=== PATIENT | female | born 2000 | race Caucasian/White ===

== ENCOUNTER 2025-06-18 15:20 | Outpatient (CLI) | payer OTHER, SELFPAY ==
--- NOTE | 2025-06-18 15:23 | US_ITS ---
PROCEDURE: OB ANATOMY W/ TRANSVAGINAL 06/18/2025 REASON FOR EXAM: CERVICAL LENGTH/ANATOMY TECHNIQUE: Procedure Code: [id number] Modality: US Procedure: OB ANATOMY W/ TRANSVAGINAL COMPARISON: April 15, 2025. FINDINGS Number: 1 Position: Vertex Placental Position: Posterior and not low-lying. Placental Abnormalities: No evidence of previa. There is evidence of a 2.3 cm 1.9 cm 1 cm subchorionic bleed along the left side of the placenta. DIMENSIONS: Biparietal Diameter: 4.6 cm: 19 weeks and 6 days: 40 percentile/ Head Circumference: 17.9 cm: 20 weeks and 3 days: 53rd percentile/ Abdominal Circumference: 15.4 cm: 20 weeks and 4 days: 58 percentile/ Femur Length: 3.1 cm: 19 weeks and 5 days: 29 percentile/ ESTIMATED WEIGHT: 339 g plus/-50 g ESTIMATED WEIGHT PERCENTILE (24+ weeks): 48 ESTIMATED GESTATIONAL AGE: Baseline: 20 weeks and 1 day By Ultrasound: 20 weeks and 1 day ESTIMATED DATE OF DELIVERY: Baseline: November 04, 2025 By Ultrasound: November 04, 2025 BIOPHYSICAL ASSESSMENT: Amniotic Fluid Volume: 2.8 cm x 8.3 cm Amniotic Fluid Index: Within normal limits. (8-24 cm normal range) Cardiac Motion: 144 beats per minute (average) Trunk and Limb Motion: Present. MATERNAL ANATOMY: Adnexa: Neither maternal ovary is successfully identified. Cervical Length (if measured): 4.7 cm ANATOMY: Spine: Unremarkable Cranium: Unremarkable Cerebellum: Unremarkable Cisterna Magna: Unremarkable Cavum Septum Pellucidi: Unremarkable Lateral Ventricles: Unremarkable Choroid Plexus: Unremarkable Midline Falx: Unremarkable Nuchal Fold: Unremarkable Upper Lip: Unremarkable Heart: Unremarkable Stomach: Unremarkable Kidneys: Unremarkable Bladder: Unremarkable Umbilical Cord: Unremarkable Extremities: Unremarkable US/OB Anatomy w/ Transvaginal IMPRESSION: Single live intrauterine gestation with a mean gestational age of 20 weeks and 1 day. Small subchorionic bleed. Reading Location: [id number]
== END 2025-06-18 23:59 | disposition home or self-care (01) ==
LOC: US 15:21
PROVIDERS: PCP Internal Medicine; Referring Provider Obstetrics & Gynecology; Visit Provider Obstetrics & Gynecology
DX: Z34.90 Encounter for supervision of normal pregnancy, unspecified, unspecified trimester (principal)
CPT/HCPCS: 76805; 76817

== ENCOUNTER 2025-06-23 10:31 | Outpatient (CLI) | payer OTHER, SELFPAY ==
--- NOTE | 2025-06-23 10:33 | EKG12_ITS ---
Test Reason : TACHY W Blood Pressure : */* mmHG Vent. Rate : 76 BPM Atrial Rate : 76 BPM P-R Int : 124 ms QRS Dur : 78 ms QT Int : 364 ms P-R-T Axes : 41 62 36 degrees QTcB Int : 409 ms Normal sinus rhythm with sinus arrhythmia Normal ECG Confirmed by Yang Conti ([id number]), society editor TIFFANY FREDERICK ([id number]) on 06/23/2025 1:19:11 PM Referred By: Arabella Urban Confirmed By: Yang Conti
== END 2025-06-23 23:59 | disposition home or self-care (01) ==
PROVIDERS: PCP Internal Medicine; Referring Provider Obstetrics & Gynecology; Visit Provider Obstetrics & Gynecology
DX: R00.0 Tachycardia, unspecified (principal)
CPT/HCPCS: 93005

== ENCOUNTER → 2025-07-30 | Outpatient (CLI) | payer OTHER, SELFPAY ==
[2025-07-30 12:17] LABS: Hematocrit 34.0 % (37-47); Hemoglobin 11.6 g/dL (12.0-15.0); Immature Granulocytes Count 0.090 X10^3/uL (0.0-0.0); Mean Corp Hgb Conc 34.1 g/dL (32-36); Mean Corpuscular Volume 92.4 fL (81-99); Mean Platelet Vol. 9.9 fl (6.2-12.0); NRBC Flagged by Analyzer 0 % (0-5); Platelet Count 310 K/mm3 (150-450); RBC Distribution Width CV 12.7 % (11.6-14.6); RBC Distribution Width SD 43.1 fl (35.1-43.9); Red Blood Count 3.68 M/mm3 (4.2-5.4); White Blood Count 11.0 K/mm3 (4.4-11.0)
[2025-07-30 13:25] LABS: Glucose Challenge Gest 1H 50g 147 mg/dL (70-140); HIV Nonreactive (Nonreactive); Syphilis Antibodies Nonreactive (Nonreactive)
== END | disposition home or self-care (01) ==
PROVIDERS: PCP Internal Medicine; Visit Provider Obstetrics & Gynecology
DX: Z34.02 Encounter for supervision of normal first pregnancy, second trimester (principal)
CPT/HCPCS: 82950; 85025; 86703; 86780

== ENCOUNTER → 2025-08-06 | Outpatient (CLI) | payer OTHER, SELFPAY ==
[2025-08-06 07:27] LABS: Glucose GTT-Gestation. Fasting 102 mg/dL (<105)
[2025-08-06 10:28] LABS: Glucose GTT-Gestational 1 Hr 197 mg/dL (<190)
[2025-08-06 11:02] LABS: Glucose GTT-Gestational 2 Hr 168 mg/dL (<165)
[2025-08-06 11:54] LABS: Glucose GTT-Gestational 3 Hr 126 L (<145)
== END | disposition home or self-care (01) ==
LOC: LAB 06:47
PROVIDERS: PCP Internal Medicine; Referring Provider Nurse Practitioner Women's Health; Visit Provider Nurse Practitioner Women's Health
DX: Z13.1 Encounter for screening for diabetes mellitus (principal)
CPT/HCPCS: 36415; 82951; 82952

== ENCOUNTER 2025-09-03 10:00 | Outpatient (RCR) | payer OTHER, SELFPAY | END 2025-09-07 23:59 | LOC: NS 10:00 | PROVIDERS: PCP Internal Medicine; Visit Provider Nurse Practitioner Women's Health | DX: O24.419 Gestational diabetes mellitus in pregnancy, unspecified control (principal) | CPT/HCPCS: 97802; 97803 ==

== ENCOUNTER → 2025-09-09 | Outpatient (CLI) | payer OTHER, SELFPAY ==
--- NOTE | 2025-09-09 14:09 | US_ITS ---
PROCEDURE: OB LIMITED WITH BIOMETRICS 09/09/2025 REASON FOR EXAM: GROWTH TECHNIQUE: Procedure Code: [id number] Modality: US Procedure: OB LIMITED WITH BIOMETRICS COMPARISON: none FINDINGS Cephalic position with cardiac activity of 138 bpm. Maximum vertical pocket of 8.7 cm and SANA of 22.8 cm. Placenta is posterior position with grade 1. BPD of 8.2, OFD of the 10.4, HC of 29.8, AC of 28.9, and FL of 5.9 cm corresponding with average gestational age of 32 weeks and 3 day with STEFFANIE of 11/01/25. Biometric measurement are within normal limits. Estimated weight of 1950g (50 percentile). US/OB Limited With Biometrics IMPRESSION: Sonographic gestational age of 32 weeks and 3 days. STEFFANIE of 11/01/25. Biometric numbers as above. Reading Location: [id number]
== END | disposition home or self-care (01) ==
LOC: US 14:08
PROVIDERS: PCP Internal Medicine; Referring Provider Nurse Practitioner Women's Health; Visit Provider Nurse Practitioner Women's Health
DX: O24.419 Gestational diabetes mellitus in pregnancy, unspecified control (principal); Z3A.32 32 weeks gestation of pregnancy
CPT/HCPCS: 76816

== ENCOUNTER 2025-09-10 16:02 | Emergency (ER) | payer OTHER, SELFPAY ==
[2025-09-10 16:04] VITALS: BP 117/61; PULSE 89; RESP 18; TEMP 36.2; O2SAT 97; BMI 28.3
--- NOTE | 2025-09-10 16:14 | EKG12_ITS ---
Test Reason : PALPATIONS Blood Pressure : */* mmHG Vent. Rate : 84 BPM Atrial Rate : 84 BPM P-R Int : 130 ms QRS Dur : 80 ms QT Int : 336 ms P-R-T Axes : 33 57 42 degrees QTcB Int : 397 ms Normal sinus rhythm Nonspecific ST abnormality Abnormal ECG Confirmed by KATHARINA SINGLETON, JOSE ([id number]), staff editor TIFFANY FREDERICK ([id number]) on 09/12/2025 9:04:54 AM Referred By: Confirmed By: JOSE POSADAS MD
--- NOTE | 2025-09-10 16:15 | EDS_ITS ---
HPI History of Present Illness Chief Complaint: Palpitations Narrative Narrative: Patient is a 25-year-old female G1, P0 currently 32 weeks who was sent in by her COMPUTER PROCESSING SCHEDULER for shortness of breath, palpitations has been progressive worsening last 2 weeks. Patient denies any travel history denies any history of blood clots. States that she currently is on insulin for gestational diabetes otherwise she states that her is going well. Denies any sick contacts. [facility] Medical History History of hysterosalpingogram Seasonal allergies Ovarian cyst UTI (urinary tract infection) Urinary frequency Home Medications ?Medication ?Instructions ?Recorded ?Last Taken ?Type Omeprazole [Prilosec] 40 mg PO DAILY 01/12/15 Unkn own History Ranitidine [Zantac] 150 mg PO PRN PRN Heartburn 01/12/15 Unknown History minocycline 100 mg capsule 100 mg PO BID 01/12/15 Unkn own History PNV 153-FA 400 mcg-om3 35 mg-dha tab PO 03/25/25 Unkno wn History 25 mg-epa 5 mg-fish oil chew tablet famotidine 20 mg tablet (Pepcid) 20 mg PO BID #60 tabs 05/07/25 Unknown Rx blood sugar diagnostic (Blood #120 ea 08/06/25 Unknown Rx Glucose Test strips) blood-glucose meter #1 ea 08/06/25 Unknown Rx lancets 30 gauge (Droplet Lancets) #200 ea 08/06/25 Un known Rx metformin 500 mg tablet 500 mg PO QDAY #30 tabs 11/0 04/02 Unknown Rx insulin NPH isoph U-100 human 100 12 unit subcut QHS 1 11/09/24 Unknown History unit/mL (3 mL) subcutaneous pen (Humulin N NPH U-100 Insulin KwikPen) Allergy/AdvReac Type Severity Reaction Status Date / Time metformin Allergy Intermediate shaking Verified 09/10/25 16:04 Family History Grandfather Diabetes Maternal & Paternal Heart disease Paternal Grandmother Breast cancer, Onset Age: 60 Paternal Mother Hypertension Father Hypertension Diabetes Surgical History No pertinent past surgical history Social History adopted: No household members: spouse housing: house number of children: 0 current occupational status: employed 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 [employer] current occupational exposures/hazards: No pets and animals: Yes pets and animals: dog(s) 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 history of recent travel: Yes ([place]) out of state: Yes out of country: No sexually active: Yes Smoking Status: Never smoker Electronic Cigarette Use: not used second hand exposure: No alcohol intake: never substance use type: does not use well-balanced diet: daily or most days caffeine: No eating out: rarely or never during the past year weight has: remained stable what type of physical activity do you participate in: walking frequency: 3-4 times per week duration: 30-45 minutes/day etienne/[employer] seatbelt use: always do you feel safe at home: Yes additional social history: 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 [employer] Surgery ROS ROS ED ROS Narrative Constitutional: Denies any fevers, chills, headaches Eyes: Denies double vision Cardiovascular: Denies chest pain complains of palpitations as noted above Respiratory: Complains of shortness of breath as noted above denies coughing Abdomen: Denies abdominal pain nausea vomit diarrhea : Denies any urinary symptoms Neurological: Denies any numbness, weakness, tingling Musculoskeletal: Denies back pain Skin: Denies any rashes or lesions EXAM Physical Exam Narrative Exam Narrative: General: Patient was lying in bed rest comfortably did not appear to be acute distress Head: Atraumatic, normocephalic Eyes: PERRL bilaterally, EOMI bilaterally, no conjunctival injection noted Neck: Soft, supple, trachea midline Cardiovascular: Regular rate and rhythm Respiratory: Clear to auscultation bilateral Abdomen: Soft, gravid abdomen no tenderness to palpation Extremities: +5/5 strength noted in the bilateral lower extremity Neurological: Patient following commands that she was at [facility] years 2024 Skin: Warm, dry, intact no rashes or lesions noted Const Vital Signs: 09/10/25 16:04 09/10/25 16:28 09/10/25 16:29 Temperature 97.2 F L Temperature Source Temporal Pulse Rate 89 Respiratory Rate 18 Respiratory Effort Normal Non-Labored Blood Pressure 117/61 Blood Pressure Mean 79 Pulse Ox 97 98 Oxygen Delivery Method Room Air Room Air 09/10/25 18:16 Temperature Temperature Source Pulse Rate 88 Respiratory Rate 16 Respiratory Effort Blood Pressure 102/67 Blood Pressure Mean 78 Pulse Ox 97 Oxygen Delivery Method Room Air MDM MDM MDM Narrative Medical decision making narrative: Patient is a 25-year-old female who presents to the emergency department chief complaint of palpitations, shortness of breath has been going on for 2 weeks and progressively worsening. On the differential diagnosis includes but to hyperthyroidism, PVCs, PACs, electrolyte abnormality, cardiac arrhythmia. Once workup is obtained and reviewed she will be reevaluated. Patient's CBC reviewed showed no evidence leukocytosis white blood count 10.4, he was 1.4, plate count was noted to be 287. Patient sodium is 137, potassium normal 3.8, creatinine was 0.47. Patient's AST and ALT were normal at 19 and 16 respectively troponin was less than 6 proBNP less than 36. Patient TSH normal at 1.77 free T4 and T3 normal at 0.80 and 2.5. Patient's EKG was reviewed which showed sinus rhythm with a rate of 84 bpm with a NV interval 130. Patient ambulated here in the emergency department no hypoxia no tachycardia. Discussed the results with the patient and mother at bedside she would like to go home at this point in time. We will prescribe her a Holter monitor for her palpitations. She was encouraged to follow-up with her COMPUTER PROCESSING SCHEDULER and return with worsening symptoms or any concerns. She is agreeable this plan all question concerns answered she was discharged home in stable condition Lab Data Labs: Laboratory Results - last 24 hr 09/10/25 16:25 WBC 10.4 RBC 3.75 L Hgb 11.4 L Hct 34.6 L MCV 92.3 MCH 30.4 MCHC 32.9 RDW Std Deviation 44.6 H RDW Coeff of Abbie 13.3 Plt Count 287 MPV 9.6 Immature Gran % (Auto) 0.800 Neut % (Auto) 72.4 H Lymph % (Auto) 17.6 L [place] % (Auto) 8.2 Eos % (Auto) 0.6 Baso % (Auto) 0.4 Absolute Neuts (auto) 7.5 Absolute Lymphs (auto) 1.83 Nucleated RBC % 0 Sodium 137 Potassium 3.8 Chloride 103 Carbon Dioxide 21.4 Anion Gap 13 BUN 10 Creatinine 0.47 L Estim Creat Clear Calc 168.07 Est GFR (MDRD) Non-Af 135 BUN/Creatinine Ratio 20.6 H Glucose 98 Calcium 9.2 Total Bilirubin 0.21 Direct Bilirubin 0.09 AST 19 ALT 16 Alkaline Phosphatase 74 Troponin T High Sens < 6 NT pro BNP II < 36 Total Protein 6.5 Albumin 3.6 Globulin 2.9 TSH 1.770 Free T4 0.80 Free T3 pg/dL 2.5 Discharge Plan Triage Chief Complaint: Palpitations ED Provider: Peng Bergman Dx/Rx/DC Orders Clinical Impression: , Heart palpitations, Gestational diabetes mellitus Prescriptions: No Action PNV no.[id number] 400 mcg-35 mg- 25 mg-5 mg tablet,chewable PO famotidine [Pepcid] 20 mg tablet 20 mg PO BID Qty: 60 4RF metformin 500 mg tablet 500 mg PO QDAY Qty: 30 4RF Rx Instructions: take at bedtime Humulin N NPH Insulin KwikPen 100 unit/mL (3 mL) insulin pen 12 unit subcut QHS minocycline 100 MG capsule 100 mg PO BID Omeprazole [Prilosec] 40 MG capsule 40 mg PO DAILY Ranitidine [Zantac] 150 MG tablet 150 mg PO PRN PRN (Reason: Heartburn) (DME) blood-glucose meter Misc See Rx Instructions .ROUTE .MEDSUPPLY Qty: 1 0RF Rx Instructions: As directed. Test blood QID. (DME) Blood Glucose Test Strip See Rx Instructions .ROUTE .MEDSUPPLY Qty: 120 6RF Rx Instructions: Check blood sugars Fasting and 2 hours after breakfast, lunch, and dinner. (DME) lancets [Droplet Lancets] 30 gauge misc See Rx Instructions .ROUTE .MEDSUPPLY Qty: 200 6RF Rx Instructions: Check blood sugars fasting and 2 hours after breakfast, lunch, and supper. Primary Care Provider: Debora Lynch Referrals: Debora Lynch MD [Primary Care Provider, Internal Medicine] Activity Restrictions/Additional Instructions: Your blood work did not show any acute findings here today your EKG was normal. Wear Holter monitor as we discussed and follow-up with your COMPUTER PROCESSING SCHEDULER. Return with worsening symptoms or any concerns Print Language: Occitan Disposition Disposition: Home, Self Care
[2025-09-10 16:28] VITALS: O2SAT 98
[2025-09-10 17:01] LABS: Hematocrit 34.6 % (37-47); Hemoglobin 11.4 g/dL (12.0-15.0); Immature Granulocytes Count 0.080 X10^3/uL (0.0-0.0); Mean Corp Hgb Conc 32.9 g/dL (32-36); Mean Corpuscular Volume 92.3 fL (81-99); Mean Platelet Vol. 9.6 fl (6.2-12.0); NRBC Flagged by Analyzer 0 % (0-5); Platelet Count 287 K/mm3 (150-450); RBC Distribution Width CV 13.3 % (11.6-14.6); RBC Distribution Width SD 44.6 fl (35.1-43.9); Red Blood Count 3.75 M/mm3 (4.2-5.4); White Blood Count 10.4 K/mm3 (4.4-11.0)
[2025-09-10 17:25] LABS: AST(SGOT) 19 U/L (<=31); Alanine Aminotransfer ALT/SGPT 16 U/L (<=34); Albumin, Serum 3.6 g/dL (3.5-5.0); Alkaline Phosphatase 74 U/L (35-104); Anion Gap 13 (5-15); BUN 10 mg/dL (4-19); BUN/Creat Ratio 20.6 RATIO (10-20); Bilirubin, Direct 0.09 mg/dL (0.00-0.30); Calcium,Total 9.2 mg/dL (7.6-11.0); Carbon Dioxide 21.4 mmol/L (21.0-32.0); Chloride 103 mmol/L (98-108); Estimated Creatinine Clearance 168.07 ml/min (50-250); Free T3 2.5 pg/mL (2.18-3.98); Globulin 2.9 g/dL (2.2-4.2); Glucose 98 mg/dL (70-99); Potassium 3.8 mmol/L (3.3-5.1)
[2025-09-10 17:42] LABS: Pro- Brain NATRIURETIC PEPTIDE < 36 pg/mL (<=450); Troponin T High Sensitivity < 6 ng/L (<=14)
[2025-09-10 18:14] VITALS: O2SAT 98
[2025-09-10 18:16] VITALS: BP 102/67; PULSE 88; RESP 16; O2SAT 97
[2025-09-10 18:49] VITALS: BP 103/62; PULSE 89; RESP 17; TEMP 37.1; O2SAT 96
== END 2025-09-10 18:50 | disposition home or self-care (01) ==
PROVIDERS: Emergency Provider Emergency Medicine; PCP Internal Medicine; Visit Provider Emergency Medicine
DX: O26.893 Other specified pregnancy related conditions, third trimester (principal); R00.2 Palpitations; R06.02 Shortness of breath; O24.414 Gestational diabetes mellitus in pregnancy, insulin controlled; Z3A.32 32 weeks gestation of pregnancy
CPT/HCPCS: 80048; 80076; 83880; 84439; 84443; 84481; 84484; 85025; 93005; 99284; A4216

== ENCOUNTER → 2025-09-19 | Outpatient (CLI) | payer OTHER, SELFPAY | END | disposition home or self-care (01) | LOC: PSN 08:17 | PROVIDERS: PCP Internal Medicine; Referring Provider Emergency Medicine; Visit Provider Emergency Medicine | DX: R00.2 Palpitations (principal) | CPT/HCPCS: 93225; 93226 ==

== ENCOUNTER → 2025-10-03 | Outpatient (CLI) | payer OTHER, SELFPAY ==
--- OUTSIDE RECORDS SUMMARY | 2025-10-03 11:03 | XMS RPT_ITS | CCD ---
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 X10 3/uL Normal 0.83-4.51 [facility] Comment on above: Performed By: #### L 509.8002, L501.0250, L100.0100, [id number] #### [facility] [address] [place], [address] Absolute Neut 7.3 X10 3/uL Normal 2.0-7.7 [facility] Comment on above: Performed By: #### L 509.8002, L501.0250, L100.0100, [id number] #### [facility] [address] [place], [address] Basophils/100 WBC (Bld) 0.4 % Normal 0-1 [facility] Comment on above: Performed By: #### L 509.8002, L501.0250, L100.0100, [id number] #### [facility] [address] [place], [address] Eosinophils/100 WBC (Bld) 1.0 % Normal 0-5 [facility] Comment on above: Performed By: #### L 509.8002, L501.0250, L100.0100, [id number] #### [facility] [address] [place], [address] Erythrocyte distribution width (RBC) [Ratio] 12.8 % Normal 11.6-14.6 [facility] Comment on above: Performed By: #### L 509.8002, L501.0250, L100.0100, [id number] #### [facility] [address] [place], [address] Hematocrit (Bld) [Volume fraction] 33.0 % Low 37-47 [facility] Comment on above: Performed By: #### L 509.8002, L501.0250, L100.0100, [id number] #### [facility] [address] [place], [address] Hemoglobin (Bld) [Mass/Vol] 11.4 g/dL Low 12.0-15.0 [facility] Comment on above: Performed By: #### L 509.8002, L501.0250, L100.0100, [id number] #### [facility] [address] [place], [address] Lymphocytes/100 WBC (Bld) 18.2 % Low 19-41 [facility] Comment on above: Performed By: #### L 509.8002, L501.0250, L100.0100, [id number] #### [facility] [address] [place], [address] MCH (RBC) [Entitic mass] 31.3 pg Normal 27.0-32.0 [facility] Comment on above: Performed By: #### L 509.8002, L501.0250, L100.0100, [id number] #### [facility] [address] [place], [address] MCHC (RBC) [Mass/Vol] 34.5 g/dL Normal 32-36 [facility] Comment on above: Performed By: #### L 509.8002, L501.0250, L100.0100, [id number] #### [facility] [address] [place], [address] MCV (RBC) [Entitic vol] 90.7 fL Normal 81-99 [facility] Comment on above: Performed By: #### L 509.8002, L501.0250, L100.0100, [id number] #### [facility] [address] [place], [address] Monocytes/100 WBC (Bld) 7.9 % Normal 0-10 [facility] Comment on above: Performed By: #### L 509.8002, L501.0250, L100.0100, [id number] #### [facility] [address] [place], [address] Neutrophils/100 WBC (Bld) 71.5 % High 47-70 [facility] Comment on above: Performed By: #### L 509.8002, L501.0250, L100.0100, [id number] #### [facility] [address] [place], [address] NRBC # 0.00 10 3/uL Normal 0-5 [facility] Comment on above: Performed By: #### L 509.8002, L501.0250, L100.0100, [id number] #### [facility] [address] [place], [address] Nucleated RBC (Bld) [#/Vol] 0 10*3/uL Normal 0-5 [facility] Comment on above: Performed By: #### L 509.8002, L501.0250, L100.0100, [id number] #### [facility] [address] [place], [address] Platelet mean volume (Bld) [Entitic vol] 9.5 fL Normal 6.2-12.0 [facility] Comment on above: Performed By: #### L 509.8002, L501.0250, L100.0100, [id number] #### [facility] [address] [place], [address] Platelets (Bld) [#/Vol] 302 10*3/uL Normal 150-450 [facility] Comment on above: Performed By: #### L 509.8002, L501.0250, L100.0100, [id number] #### [facility] [address] [place], [address] RBC (Bld) [#/Vol] 3.64 10*6/uL Low 4.2-5.4 [facility] Comment on above: Performed By: #### L 509.8002, L501.0250, L100.0100, [id number] #### [facility] [address] [place], [address] RDW SD 42.0 fl Normal 35.1-43.9 [facility] Comment on above: Performed By: #### L 509.8002, L501.0250, L100.0100, [id number] #### [facility] [address] [place], [address] WBC (Bld) [#/Vol] 10.2 10*3/uL Normal 4.4-11.0 [facility] Comment on above: Performed By: #### L 509.8002, L501.0250, L100.0100, [id number] #### [facility] [address] [place], [address] Calculated very low density lipoprotein (VLDL) cholesterol measurementOrdered By: HEALTH ASSESSMENT on 08-01-2025 Calculated very low density lipoprotein (VLDL) cholesterol measurement 45 mg/dL High 5-40 [facility] Carbon dioxide, total [Moles /volume] in Central venous bloodOrdered By: HEALTH ASSESSMENT on 08-01-2025 CO2 [Moles/Vol] 23.9 mmol/L 21.0-32.0 [facility] Chloride assayOrdered By: HE ALTH ASSESSMENT on 08-01-2025 Chloride [Moles/Vol] 101 mmol/L 98-108 [facility] Employee Profileon Albumin [Mass/Vol] 3.6 g/dL Normal 3.5-5.0 [facility] Comment on above: Performed By: #### L 509.8002, L501.0250, L100.0100, [id number] #### [facility] [address] [place], [address] Albumin/Globulin [Mass ratio] 1.3 {ratio} Normal 0.9-2.4 [facility] Comment on above: Performed By: #### L 509.8002, L501.0250, L100.0100, [id number] #### [facility] [address] [place], [address] ALK PHOS 59 U/L Normal 35-104 [facility] Comment on above: Performed By: #### L 509.8002, L501.0250, L100.0100, [id number] #### [facility] [address] [place], [address] ALT [Catalytic activity/Vol] 18 U/L Normal <=34 [facility] Comment on above: Performed By: #### L 509.8002, L501.0250, L100.0100, [id number] #### [facility] [address] [place], [address] AST [Catalytic activity/Vol] 17 U/L Normal <=31 [facility] Comment on above: Performed By: #### L 509.8002, L501.0250, L100.0100, [id number] #### [facility] [address] [place], [address] Bilirubin [Mass/Vol] 0.22 mg/dL Normal 0.00-1.30 [facility] Comment on above: Performed By: #### L 509.8002, L501.0250, L100.0100, [id number] #### [facility] [address] [place], [address] Bilirubin.direct [Mass/Vol] 0.09 mg/dL Normal 0.00-0.30 [facility] Comment on above: Performed By: #### L 509.8002, L501.0250, L100.0100, [id number] #### [facility] [address] [place], [address] BUN/CRE 14.8 RATIO Normal 10-20 [facility] Comment on above: Performed By: #### L 509.8002, L501.0250, L100.0100, [id number] #### [facility] [address] [place], [address] Calcium [Mass/Vol] 9.2 mg/dL Normal 7.6-11.0 [facility] Comment on above: Performed By: #### L 509.8002, L501.0250, L100.0100, [id number] #### [facility] [address] [place], [address] Chloride [Moles/Vol] 101 mmol/L Normal 98-108 [facility] Comment on above: Performed By: #### L 509.8002, L501.0250, L100.0100, L3890.6006 #### [facility] [address] [place], [address] CO2 [Moles/Vol] 23.9 mmol/L Normal 21.0-32.0 [facility] Comment on above: Performed By: #### L 509.8002, L501.0250, L100.0100, [id number] #### [facility] [address] [place], [address] Creatinine [Mass/Vol] 0.43 mg/dL Low 0.70-1.20 [facility] Comment on above: Performed By: #### L 509.8002, L501.0250, L100.0100, [id number] #### [facility] [address] [place], [address] GAP 11 Normal 5-15 [facility] Comment on above: Performed By: #### L 509.8002, L501.0250, L100.0100, L3890.6006 #### [facility] [address] [place], [address] GFR/1.73 sq M.predicted among non-blacks MDRD (S/P/Bld) [Vol rate/Area] 138 mL/min/{1.73_m2} Normal >60 [facility] Comment on above: Result Comment: mL/m in/1.73m2 CKD-EPI Creatinine Equation (2020) Performed By: #### L 509.8002, L501.0250, L100.0100, L3890.6006 #### [facility] [address] [place], [address] Globulin (S) [Mass/Vol] 2.9 g/dL Normal 2.2-4.2 [facility] Comment on above: Performed By: #### L 509.8002, L501.0250, L100.0100, L3890.6006 #### [facility] [address] [place], [address] Glucose [Mass/Vol] 81 mg/dL Normal 70-99 [facility] Comment on above: Performed By: #### L 509.8002, L501.0250, L100.0100, [id number] #### [facility] [address] [place], [address] Potassium [Moles/Vol] 4.2 mmol/L Normal 3.3-5.1 [facility] Comment on above: Performed By: #### L 509.8002, L501.0250, L100.0100, L3890.6006 #### [facility] [address] [place], [address] Sodium [Moles/Vol] 136 mmol/L Normal 133-145 [facility] Comment on above: Performed By: #### L 509.8002, L501.0250, L100.0100, [id number] #### [facility] [address] [place], [address] T PROT 6.5 g/dL Normal 5.9-8.4 [facility] Comment on above: Performed By: #### L 509.8002, L501.0250, L100.0100, L3890.6006 #### [facility] [address] [place], [address] Urea nitrogen [Mass/Vol] 6 mg/dL Normal 4-19 [facility] Comment on above: Performed By: #### L 509.8002, L501.0250, L100.0100, L3890.6006 #### [facility] [address] [place], [address] Erythrocyte distribution wid th ratioOrdered By: HEALTH ASSESSMENT on 08-01-2025 Erythrocyte distribution width (RBC) [Ratio] 12.8 % 11.6-14.6 [facility] Erythrocyte distribution wid th standard deviationOrdered By: HEALTH ASSESSMENT on 08-01-2025 Erythrocyte distribution width (RBC) [Ratio] 42.0 fl 35.1-43.9 [facility] Glomerular filtration rate ( GFR) estimation/1.73 sq m using serum, plasma, or whole bOrdered By: HEALTH ASSESSMENT on 08-01-2025 GFR/1.73 sq M.predicted among non-blacks MDRD (S/P/Bld) [Vol rate/Area] 138 mL/min/{1.73_m2} >60 [facility] Comment on above: mL/min/1.73m2 CKD-EP I Creatinine Equation (2020) Hematocrit Auto (Bld) [Volum e fraction]Ordered By: HEALTH ASSESSMENT on 08-01-2025 Hematocrit (Bld) [Volume fraction] 33.0 % Low 37-47 [facility] Hemoglobin measurementOrdere d By: HEALTH ASSESSMENT on 08-01-2025 Hemoglobin (Bld) [Mass/Vol] 11.4 g/dL Low 12.0-15.0 [facility] LDL calc ser/plasOrdered By: HEALTH ASSESSMENT on 08-01-2025 Cholesterol in LDL [Mass/Vol] 214 mg/dL [facility] Comment on above: Tnnuewdreo=485-024 m g/dL & Higher Ovgs=431 mg/dL or greaterSampson Equation 2020 for LDL-C Laboratory - Chemistry and C hemistry - challengeOrdered By: HEALTH ASSESSMENT on 08-01-2025 AST [Catalytic activity/Vol] 17 U/L <32 [facility] Lactate dehydrogenase (LDH) measurementOrdered By: HEALTH ASSESSMENT on 08-01-2025 LDH [Catalytic activity/Vol] 173 U/L 84-246 [facility] MCV (mean corpuscular volume ) determinationOrdered By: HEALTH ASSESSMENT on 08-01-2025 MCV (RBC) [Entitic vol] 90.7 fL 81-99 [facility] Mean corpuscular hemoglobin (MCH) determinationOrdered By: HEALTH ASSESSMENT on 08-01-2025 MCH (RBC) [Entitic mass] 31.3 pg 27.0-32.0 [facility] Mean corpuscular hemoglobin concentration (MCHC) determinationOrdered By: HEALTH ASSESSMENT on 08-01-2025 MCHC (RBC) [Mass/Vol] 34.5 g/dL 32-36 [facility] Mean platelet volume determi nationOrdered By: HEALTH ASSESSMENT on 08-01-2025 Platelet mean volume (Bld) [Entitic vol] 9.5 fL 6.2-12.0 [facility] Neutrophil percentageOrdered By: HEALTH ASSESSMENT on 08-01-2025 Neutrophils/100 WBC (Bld) 71.5 % High 47-70 [facility] Nucleated red blood cell per centageOrdered By: HEALTH ASSESSMENT on 08-01-2025 Nucleated RBC/100 WBC (Bld) [Ratio] 0 % 0-5 [facility] Platelet countOrdered By: HE ALTH ASSESSMENT on 08-01-2025 Platelets (Bld) [#/Vol] 302 10*3/uL 150-450 [facility] Potassium measurement (mass/ volume)Ordered By: HEALTH ASSESSMENT on 08-01-2025 Potassium (Unsp spec) [Mass/Vol] 4.2 mmol/L 3.3-5.1 [facility] RBC Auto (Bld) [#/Vol]Ordere d By: HEALTH ASSESSMENT on 08-01-2025 RBC (Bld) [#/Vol] 3.64 10*6/uL Low 4.2-5.4 [facility] Screening total cholesterol/ high density lipoprotein (HDL) cholesterol ratioOrdered By: HEALTH ASSESSMENT on 08-01-2025 Cholesterol.total/Choleste rol in HDL [Mass ratio] 4.30 {ratio} [facility] Serum creatinine measurement (mass/volume)Ordered By: HEALTH ASSESSMENT on 08-01-2025 Creatinine [Mass/Vol] 0.43 mg/dL Low 0.70-1.20 [facility] Serum globulin measurementOr dered By: HEALTH ASSESSMENT on 08-01-2025 Globulin (S) [Mass/Vol] 2.9 g/dL 2.2-4.2 [facility] Serum glucose measurement (m ass/volume)Ordered By: HEALTH ASSESSMENT on 08-01-2025 Glucose [Mass/Vol] 81 mg/dL 70-99 [facility] Serum or plasma alanine corona otransferase (ALT) measurementOrdered By: HEALTH ASSESSMENT on 08-01-2025 ALT [Catalytic activity/Vol] 18 U/L <35 [facility] Serum or plasma albumin ricardo urement (mass/volume)Ordered By: HEALTH ASSESSMENT on 08-01-2025 Albumin [Mass/Vol] 3.6 g/dL 3.5-5.0 [facility] Serum or plasma albumin/glob ulin mass ratioOrdered By: HEALTH ASSESSMENT on 08-01-2025 Albumin/Globulin [Mass ratio] 1.3 {ratio} 0.9-2.4 [facility] Serum or plasma alkaline zuleyka sphatase measurementOrdered By: HEALTH ASSESSMENT on 08-01-2025 ALP [Catalytic activity/Vol] 59 U/L 35-104 [facility] Serum or plasma calcium ricardo urement (mass/volume)Ordered By: HEALTH ASSESSMENT on 08-01-2025 Calcium [Mass/Vol] 9.2 mg/dL 7.6-11.0 [facility] Serum or plasma cholesterol in HDL measurement (mass/volume)Ordered By: HEALTH ASSESSMENT on 08-01-2025 Cholesterol in HDL [Mass/Vol] 78 mg/dL >40 [facility] Comment on above: National Cholesterol Education Program (NCEP) guidelines:<40 mg/dL: Low HDL-cholesterol (major risk factor for CHD)>= 60 mg/dL: High HDL-cholesterol (negative risk factor for CHD)HDL-cholesterol is affected by a number of factors, e.g. smoking, exercise, hormones, sex and age. Serum or plasma cholesterol measurement (mass/volume)Ordered By: HEALTH ASSESSMENT on 08-01-2025 Cholesterol [Mass/Vol] 336 mg/dL High <201 [facility] Comment on above: Cholesterol level, D esirable <200 mg/dLBorderline high cholesterol 200-239 mg/dLHigh cholesterol >=240 mg/dLRecommendations of the NCEP Adult Treatment Panel for the following risk-cutoff thresholds for the [place] population. Serum or plasma urea nitroge n measurement (mass/volume)Ordered By: HEALTH ASSESSMENT on 08-01-2025 Urea nitrogen [Mass/Vol] 6 mg/dL 4-19 [facility] Serum or plasma uric acid me asurement (mass/volume)Ordered By: HEALTH ASSESSMENT on 08-01-2025 Urate [Mass/Vol] 3.2 mg/dL 2.6-6.0 [facility] Comment on above: The drugs N-Acetylcy steine and Metamizole may falsely depress this assay. Sodium levelOrdered By: HEAL TH ASSESSMENT on 08-01-2025 Sodium [Moles/Vol] 136 mmol/L 133-145 [facility] Total proteinOrdered By: HEA [facility] ASSESSMENT on 08-01-2025 Protein [Mass/Vol] 6.5 g/dL 5.9-8.4 [facility] Triglycerides measurementOrd ered By: HEALTH ASSESSMENT on 08-01-2025 Triglyceride [Mass/Vol] 225 mg/dL High <199 [facility] Comment on above: The drugs N-Acetylcy steine and Metamizole may falsely depress this assay. Normal range: <150 mg/dLBorderline High: 150-199 mg/dLHigh: 200-499 mg/dLVery High: >500 mg/dL Urinalysis, Employeeon 08-01 BILIRUBIN URINE Normal Negative [facility] Comment on above: Order Comment: N Result Comment: JUST WANTED THE BLOOWORK Performed By: #### L 801.2600 #### [facility] [address] [place], [address] Clarity (U) Normal Clear [facility] Comment on above: Order Comment: N Result Comment: JUST WANTED THE BLOOWORK Performed By: #### L 801.2600 #### [facility] [address] [place], [address] Color (U) Normal Yellow [facility] Comment on above: Order Comment: N Result Comment: JUST WANTED THE BLOOWORK Performed By: #### L 801.2600 #### [facility] [address] [place], [address] GLUCOSE, UR Normal Normal [facility] Comment on above: Order Comment: N Result Comment: JUST WANTED THE BLOOWORK Performed By: #### L 801.2600 #### [facility] [address] [place], [address] KETONE UR Normal Negative [facility] Comment on above: Order Comment: N Result Comment: JUST WANTED THE BLOOWORK Performed By: #### L 801.2600 #### [facility] [address] [place], [address] LEUK ESTERASE Normal Negative [facility] Comment on above: Order Comment: N Result Comment: JUST WANTED THE BLOOWORK Performed By: #### L 801.2600 #### [facility] [address] [place], [address] Nitrite Ql (U) Normal Negative [facility] Comment on above: Order Comment: N Result Comment: JUST WANTED THE BLOOWORK Performed By: #### L 801.2600 #### [facility] [address] [place], [address] OCCULT BLOOD-UR Normal Negative [facility] Comment on above: Order Comment: N Result Comment: JUST WANTED THE BLOOWORK Performed By: #### L 801.2600 #### [facility] [address] [place], [address] pH UR Normal 5.0 - 8.0 [facility] Comment on above: Order Comment: N Result Comment: JUST WANTED THE BLOOWORK Performed By: #### L 801.2600 #### [facility] [address] [place], [address] PROT DIPSTX Normal Negative [facility] Comment on above: Order Comment: N Result Comment: JUST WANTED THE BLOOWORK Performed By: #### L 801.2600 #### [facility] [address] [place], [address] SP.GR. DIPSTX Normal 1.002-1.030 [facility] Comment on above: Order Comment: N Result Comment: JUST WANTED THE BLOOWORK Performed By: #### L 801.2600 #### [facility] [address] [place], [address] UR Preservative Normal [facility] Comment on above: Order Comment: N Result Comment: JUST WANTED THE BLOOWORK Performed By: #### L 801.2600 #### [facility] [address] [place], [address] UROBILI Normal Normal [facility] Comment on above: Order Comment: N Result Comment: JUST WANTED THE BLOOWORK Performed By: #### L 801.2600 #### [facility] [address] [place], [address] White blood cell (WBC) count Ordered By: HEALTH ASSESSMENT on 08-01-2025 WBC (Bld) [#/Vol] 10.2 10*3/uL 4.4-11.0 [facility] Absolute lymphocyte countOrd ered By: Arabella Orellana on 07-30-2025 Lymphocytes Auto (Unsp spec) [#/Vol] 1.42 10*3/uL 0.83-4.51 [facility] Absolute neutrophil countOrd ered By: Arabella Orellana on 07-30-2025 Neutrophils (Bld) [#/Vol] 8.7 10*3/uL High 2.0-7.7 [facility] Automated lymphocyte count a s percentage of total leukocytesOrdered By: Arabella Orellana on 07-30-2025 Lymphocytes/100 WBC Auto (Unsp spec) 12.9 % Low 19-41 [facility] Basophil percentageOrdered B y: Arabella Orellana on 07-30-2025 Basophils/100 WBC (Bld) 0.2 % 0-1 [facility] CBC W/Diff, Automatedon 07-10 Absolute Lymph 1.42 X10 3/uL Normal 0.83-4.51 [facility] Comment on above: Performed By: #### L 509.8002, L501.0250, L100.0100, L3890.6006 #### [facility] [address] [place], [address] Absolute Neut 8.7 X10 3/uL High 2.0-7.7 [facility] Comment on above: Performed By: #### L 509.8002, L501.0250, L100.0100, L3890.6006 #### [facility] [address] [place], [address] Basophils/100 WBC (Bld) 0.2 % Normal 0-1 [facility] Comment on above: Performed By: #### L 509.8002, L501.0250, L100.0100, L3890.6006 #### [facility] [address] [place], [address] Eosinophils/100 WBC (Bld) 0.7 % Normal 0-5 [facility] Comment on above: Performed By: #### L 509.8002, L501.0250, L100.0100, L3890.6006 #### [facility] [address] [place], [address] Erythrocyte distribution width (RBC) [Ratio] 12.7 % Normal 11.6-14.6 [facility] Comment on above: Performed By: #### L 509.8002, L501.0250, L100.0100, L3890.6006 #### [facility] [address] [place], [address] Hematocrit (Bld) [Volume fraction] 34.0 % Low 37-47 [facility] Comment on above: Performed By: #### L 509.8002, L501.0250, L100.0100, L3890.6006 #### [facility] [address] [place], [address] Hemoglobin (Bld) [Mass/Vol] 11.6 g/dL Low 12.0-15.0 [facility] Comment on above: Performed By: #### L 509.8002, L501.0250, L100.0100, L3890.6006 #### [facility] [address] [place], [address] IG% 0.800 Normal 0.0-0.9 [facility] Comment on above: Result Comment: IG% - Immature Granulocytes (promyelocytes, myelocytes and metamyelocytes) > 1% indicates that a LEFT SHIFT is Present. Performed By: #### L 509.8002, L501.0250, L100.0100, L3890.6006 #### [facility] [address] [place], [address] Lymphocytes/100 WBC (Bld) 12.9 % Low 19-41 [facility] Comment on above: Performed By: #### L 509.8002, L501.0250, L100.0100, L3890.6006 #### [facility] [address] [place], [address] MCH (RBC) [Entitic mass] 31.5 pg Normal 27.0-32.0 [facility] Comment on above: Performed By: #### L 509.8002, L501.0250, L100.0100, L3890.6006 #### [facility] [address] [place], [address] MCHC (RBC) [Mass/Vol] 34.1 g/dL Normal 32-36 [facility] Comment on above: Performed By: #### L 509.8002, L501.0250, L100.0100, [id number] #### [facility] [address] [place], [address] MCV (RBC) [Entitic vol] 92.4 fL Normal 81-99 [facility] Comment on above: Performed By: #### L 509.8002, L501.0250, L100.0100, [id number] #### [facility] [address] [place], [address] Monocytes/100 WBC (Bld) 5.7 % Normal 0-10 [facility] Comment on above: Performed By: #### L 509.8002, L501.0250, L100.0100, [id number] #### [facility] [address] [place], [address] Neutrophils/100 WBC (Bld) 79.7 % High 47-70 [facility] Comment on above: Performed By: #### L 509.8002, L501.0250, L100.0100, [id number] #### [facility] [address] [place], [address] Nucleated RBC (Bld) [#/Vol] 0 10*3/uL Normal 0-5 [facility] Comment on above: Performed By: #### L 509.8002, L501.0250, L100.0100, L3890.6006 #### [facility] [address] [place], [address] Platelet mean volume (Bld) [Entitic vol] 9.9 fL Normal 6.2-12.0 [facility] Comment on above: Performed By: #### L 509.8002, L501.0250, L100.0100, L3890.6006 #### [facility] [address] [place], [address] Platelets (Bld) [#/Vol] 310 10*3/uL Normal 150-450 [facility] Comment on above: Performed By: #### L 509.8002, L501.0250, L100.0100, L3890.6006 #### [facility] [address] [place], [address] RBC (Bld) [#/Vol] 3.68 10*6/uL Low 4.2-5.4 [facility] Comment on above: Performed By: #### L 509.8002, L501.0250, L100.0100, L3890.6006 #### [facility] [address] [place], [address] RDW SD 43.1 fl Normal 35.1-43.9 [facility] Comment on above: Performed By: #### L 509.8002, L501.0250, L100.0100, L3890.6006 #### [facility] [address] [place], [address] WBC (Bld) [#/Vol] 11.0 10*3/uL Normal 4.4-11.0 [facility] Comment on above: Performed By: #### L 509.8002, L501.0250, L100.0100, L3890.6006 #### [facility] [address] [place], [address] Eosinophil percentageOrdered By: Arabella Orellana on 07-30-2025 Eosinophils/100 WBC (Bld) 0.7 % 0-5 [facility] Erythrocyte distribution wid th ratioOrdered By: Arabella Orellana on 07-30-2025 Erythrocyte distribution width (RBC) [Ratio] 12.7 % 11.6-14.6 [facility] Erythrocyte distribution wid th standard deviationOrdered By: Arabella Orellana on 07-30-2025 Erythrocyte distribution width (RBC) [Ratio] 43.1 fl 35.1-43.9 [facility] Glucose Challenge Gest 1H 50 matthew 07-30-2025 GLU GEST 50g 1H 147 mg/dL High 70-140 [facility] Comment on above: Performed By: #### L 509.8002, L501.0250, L100.0100, L3890.6006 #### [facility] [address] [place], [address] Glucose measurement at 2 gregory rs post-dose gestational glucose tolerance testOrdered By: Arabella Orellana on 07-30-2025 Glucose [Mass/Vol] 147 mg/dL High 70-140 [facility] HIVon 07-30-2025 HIV Non-Reactive Normal Nonreactive [facility] Comment on above: Result Comment: Non- Reactive Reactive Repeatedly reactive samples must be confirmed according to CDC recommended confirmatory algorithms. The subresults for either HIVAG or AHIV can be used as an aid in the selection of the confirmation algorithm for reactive samples. Send out specimens with Reactive results to [facility] for confirmation. Order the HIV antibody detection and differentiation: #[id number] Performed By: #### L 509.8002, L501.0250, L100.0100, L3890.6006 #### [facility] [address] [place], [place], [address] Hematocrit Auto (Bld) [Volum e fraction]Ordered By: Arabella Orellana on 07-30-2025 Hematocrit (Bld) [Volume fraction] 34.0 % Low 37-47 [facility] Hemoglobin measurementOrdere d By: Arabella Orellana on 07-30-2025 Hemoglobin (Bld) [Mass/Vol] 11.6 g/dL Low 12.0-15.0 [facility] Immature granulocytes/100 WB C Auto (Bld)Ordered By: Arabella Orellana on 07-30-2025 Immature granulocytes/100 WBC (Bld) 0.800 % 0.0-0.9 [facility] Comment on above: IG% - Immature Granu locytes (promyelocytes, myelocytes and metamyelocytes) > 1% indicates that a LEFT SHIFT is Present. Laboratory - Chemistry and C hemistry - challengeOrdered By: Arabella Orellana on 07-30-2025 Glucose Ql (U) Negative [facility] - UrinalysisOrder ed By: Arabella Orellana on 07-30-2025 Protein Ql (U) Negative [facility] MCV (mean corpuscular volume ) determinationOrdered By: Arabella Orellana on 07-30-2025 MCV (RBC) [Entitic vol] 92.4 fL 81-99 [facility] Mean corpuscular hemoglobin (MCH) determinationOrdered By: Arabella Orellana on 07-30-2025 MCH (RBC) [Entitic mass] 31.5 pg 27.0-32.0 [facility] Mean corpuscular hemoglobin concentration (MCHC) determinationOrdered By: Arabella Orellana on 07-30-2025 MCHC (RBC) [Mass/Vol] 34.1 g/dL 32-36 [facility] Mean platelet volume determi nationOrdered By: Arabella Orellana on 07-30-2025 Platelet mean volume (Bld) [Entitic vol] 9.9 fL 6.2-12.0 [facility] Monocyte percentageOrdered B y: Arabella Orellana on 07-30-2025 Monocytes/100 WBC (Bld) 5.7 % 0-10 [facility] Neutrophil percentageOrdered By: Arabella Orellana on 07-30-2025 Neutrophils/100 WBC (Bld) 79.7 % High 47-70 [facility] No Panel InformationOrdered By: Arabella Orellana on 07-30-2025 HIV (1&2) Antibody Non-Reactive Nonreactive [facility] Comment on above: Non-ReactiveReactive Repeatedly reactive samples must be confirmed according to CDC recommended confirmatory algorithms. The subresults for either HIVAG or AHIV can be used as an aid in the selection of the confirmation algorithm for reactive samples.Send out specimens with Reactive results to [facility] for confirmation.Order the HIV antibody detection and differentiation: #[id number] Nucleated red blood cell per centageOrdered By: Arabella Orellana on 07-30-2025 Nucleated RBC/100 WBC (Bld) [Ratio] 0 % 0-5 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 Office Visit Reporton 07-30-2025 Clothing Pattern Preparer Office Visit Report [facility]'s [address], [address] [place] [address] OFFICE VISIT Date of Service: 07/30/25 MR#: [id number] Acct: [id number] Name: MARCELA DASH Rep #: [id number] : 2000 Provider: Dr. Arabella lucio MD Age/Sex: 24/F [place] [facility] [place]: Signed Intake Vital Signs 06/04/25 13:01 07/02/25 13:49 07/30/25 09:36 07/30/25 09:37 Height 5 ft 2 in 5 ft 2 in 5 ft 2 in 5 ft 2 in Weight: 153 lb 2 oz BMI 28.0 BP 114/78 Intake Visit Reasons: 26wk ob/glucose Banquet Food Server Required: No Is patient in pain?: No Allergies No Known Allergies Allergy (Verified 07/30/25 09:37) Medications ???Medication ???Instructions ???Recorded ???Confirmed ???Type Omeprazole [Prilosec] 40 mg PO DAILY 01/12/15 07/30/25 H istory Ranitidine [Zantac] 150 mg PO PRN PRN Heartburn 07/30/25 History minocycline 100 mg capsule 100 mg PO BID 01/12/15 07/30/25 Hi story PNV 153-FA 400 mcg-om3 35 mg-dha tab PO 03/25/25 07/30/25 History 25 mg-epa 5 mg-fish oil chew tablet famotidine 20 mg tablet (Pepcid) 20 mg PO BID #60 tabs 05/07/25 Rx Last Menstrual Period: 01/28/25 Zika: Zika virus screening: Negative : No Have you fallen in the past year?: No PFSH PFSH Medical History History of hysterosalpingogram Seasonal allergies Ovarian cyst UTI (urinary tract infection) Urinary frequency Surgical History No pertinent past surgical history Family History Grandfather Diabetes Maternal Paternal Heart disease Paternal Grandmother Breast cancer, Onset Age: 60 Paternal Mother Hypertension Father Hypertension Diabetes Social History adopted: No household members: spouse housing: house number of children: 0 current occupational status: employed 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[employer] current occupational exposures/hazards: No pets and animals: Yes pets and animals: dog(s) 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 history of recent travel: Yes ([place]) out of state: Yes out of country: No sexually active: Yes Smoking Status: Never smoker Electronic Cigarette Use: not used second hand exposure: No alcohol intake: never substance use type: does not use well-balanced diet: daily or most days caffeine: No eating out: rarely or never during the past year weight has: remained stable what type of physical activity do you participate in: walking frequency: 3-4 times per week duration: 30-45 minutes/day etienne/zoroastrian: [employer] seatbelt use: always do you feel safe at home: Yes 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 OB Visit STEFFANIE Calculator Estimated Delivery Date Method Current WG Current Estimate 11/04/25 LMP (Certain) 26w 1d Expected Delivery Route/Plan Labor Preferences- CB/BF classes: [] labor support person: [] labor intervention preferences: [] pain management options preferred: [] cut cord/dad catch: [] : [] PP control planned: [] discussed possible routes of delivery and associated risks: [] special requests: [] Specific Issue/Plans Covid status: [] Flu vaccine: considering Tdap vaccine: [] Rhogam: [] LARC form signed: [] Problem list reviewed and updated with the most current plan of care details and appropriate orders placed. Relevant counseling for the gestational age provided. Continue routine care and follow up unless otherwise noted in visit notes/problem list details Initial Weight: 137 lb Date -???-???-???-???-???- ???-???-???-???-???-? ??-???- EGA Weight BP Urine Prot -???-???-???-???-???- ???-???-???-???-???-? ??-???- Glucose FHR FuHt Pres Dilation -???-???-???-???-???- ???-???-???-???-???-? ??-???- Effaced St Visit Note 04/07/25 -???-???-???-???-???- ???-???-???-???-???-? ??-???- 9w 6d 137 lb 8 oz (+8 oz) 123/75 -???-???-???-???-???- ???-???-???-???-???-? ??-???- 171 -???-???-???-???-???- ???-???-???-???-???-? ??-???- JV- CRL cons istent with LMP. Still has some brown discharge. no lissa today or reason for bleeding. vaginitis smear was negative. 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 ??-???- 14w 1d 135 lb 4 oz (-1 lb 12 oz) 111/73 Negative -???-?? (more content not included)... Normal [facility] Platelet countOrdered By: Jerry Orellana on 07-30-2025 Platelets (Bld) [#/Vol] 310 10*3/uL 150-450 [facility] RBC Auto (Bld) [#/Vol]Ordere d By: Arabella Orellana on 07-30-2025 RBC (Bld) [#/Vol] 3.68 10*6/uL Low 4.2-5.4 [facility] Syphilis Antibodieson 2024 Syphilis Abs Non-Reactive Normal Nonreactive [facility] Comment on above: Performed By: #### L 509.8002, L501.0250, L100.0100, L3890.6006 #### [facility] [address] [place], [address] White blood cell (WBC) count Ordered By: Arabella Orellana on 07-30-2025 WBC (Bld) [#/Vol] 11.0 10*3/uL 4.4-11.0 [facility] Progress Noteon 07-24-2025 Lump Maker Authentication Interface Message Text Normal ultrasound findings reviewed with Marcela and her partner. Normal [facility] Laboratory - Chemistry and C hemistry - challengeOrdered By: Arabella Orellana on 07-02-2025 Glucose Ql (U) Negative [facility] - UrinalysisOrder ed By: Arabella Orellana on 07-02-2025 Protein Ql (U) Negative 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 Office Visit Reporton 07-02-2025 Clothing Pattern Preparer Office Visit Report [facility]'s [address], [address] [place] [address] OFFICE VISIT Date of Service: 07/02/25 MR#: [id number] Acct: [id number] Name: MARCELA DASH Rep #: [id number] : 2000 Provider: Dr. Arabella lucio MD Age/Sex: 24/F [place] [facility] [place]: Signed Intake Vital Signs 05/07/25 10:52 06/23/25 08:52 07/02/25 13:49 Height 5 ft 2 in 5 ft 2 in 5 ft 2 in Weight: 147 lb 1 oz 147 lb 1 oz BMI 26.9 26.9 BP 119/72 Intake Visit Reasons: 22 WK OB Chief Complaint: 22wk OB Banquet Food Server Required: No Is patient in pain?: No Allergies No Known Allergies Allergy (Verified 07/02/25 13:46) Medications ???Medication ???Instructions ???Recorded ???Confirmed ???Type Omeprazole [Prilosec] 40 mg PO DAILY 01/12/15 07/02/25 H istory Ranitidine [Zantac] 150 mg PO PRN PRN Heartburn 07/02/25 History minocycline 100 mg capsule 100 mg PO BID 01/12/15 07/02/25 Hi story PNV 153-FA 400 mcg-om3 35 mg-dha tab PO 03/25/25 07/02/25 History 25 mg-epa 5 mg-fish oil chew tablet famotidine 20 mg tablet (Pepcid) 20 mg PO BID #60 tabs 05/07/25 Rx Last Menstrual Period: 01/28/25 : No [facility] Medical History History of hysterosalpingogram Seasonal allergies Ovarian cyst UTI (urinary tract infection) Urinary frequency Surgical History No pertinent past surgical history Family History Grandfather Diabetes Maternal Paternal Heart disease Paternal Grandmother Breast cancer, Onset Age: 60 Paternal Mother Hypertension Father Hypertension Diabetes Social History adopted: No household members: spouse housing: house number of children: 0 current occupational status: employed 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[employer] current occupational exposures/hazards: No pets and animals: Yes pets and animals: dog(s) 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 history of recent travel: Yes ([place]) out of state: Yes out of country: No sexually active: Yes Smoking Status: Never smoker Electronic Cigarette Use: not used second hand exposure: No alcohol intake: never substance use type: does not use well-balanced diet: daily or most days caffeine: No eating out: rarely or never during the past year weight has: remained stable what type of physical activity do you participate in: walking frequency: 3-4 times per week duration: 30-45 minutes/day etienne/zoroastrian: [employer] seatbelt use: always do you feel safe at home: Yes 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 OB Visit STEFFANIE Calculator Estimated Delivery Date Method Current WG Current Estimate 11/04/25 LMP (Certain) 22w 1d Expected Delivery Route/Plan Labor Preferences- CB/BF classes: [] labor support person: [] labor intervention preferences: [] pain management options preferred: [] cut cord/dad catch: [] : [] PP control planned: [] discussed possible routes of delivery and associated risks: [] special requests: [] Specific Issue/Plans Covid status: [] Flu vaccine: [] Tdap vaccine: [] Rhogam: [] LARC form signed: [] Problem list reviewed and updated with the most current plan of care details and appropriate orders placed. Relevant counseling for the gestational age provided. Continue routine care and follow up unless otherwise noted in visit notes/problem list details Initial Weight: 137 lb Date -???-???-???-???-???- ???-???-???-???-???-? ??-???- EGA Weight BP Urine Prot -???-???-???-???-???- ???-???-???-???-???-? ??-???- Glucose FHR FuHt Pres Dilation -???-???-???-???-???- ???-???-???-???-???-? ??-???- Effaced St Visit Note 04/07/25 -???-???-???-???-???- ???-???-???-???-???-? ??-???- 9w 6d 137 lb 8 oz (+8 oz) 123/75 -???-???-???-???-???- ???-???-???-???-???-? ??-???- 171 -???-???-???-???-???- ???-???-???-???-???-? ??-???- JV- CRL cons istent with LMP. Still has some brown discharge. no lissa today or reason for bleeding. vaginitis smear was negative. 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 ??-???- 14w 1d 135 lb 4 oz (-1 lb 12 oz) 111/73 Negative -???-???-???-???-???- ???-???-???-???-???-? ??-???- Negative -???-???-???-???-???- ???-???-???-???-?? (more content not included)... Normal [facility] 12 Lead EKGon 06-23-2025 12 Lead EKG [facility] [address] [place] [address] 12 Lead EKG 06/23/25 1042 MR#: [id number] Acct: [id number] Name: MARCELA DASH Rep #: [id number] : 2000 24 From: Yang Conti MD Attending Dr: Dr. Arabella Orellana MD Status: REG CLI Ordering Dr: Arabella Orellana MD Date: 06/23/25 Location: PSN Sex: F C Admitted: Test Reason : TACHY W Blood Pressure : */* mmHG Vent. Rate : 76 BPM Atrial Rate : 76 BPM P-R Int : 124 ms QRS Dur : 78 ms QT Int : 364 ms P-R-T Axes : 41 62 36 degrees QTcB Int : 409 ms Normal sinus rhythm with sinus arrhythmia Normal ECG Confirmed by Yang Conti ([id number]), medical editor TIFFANY FREDERICK ([id number]) on 06/23/2025 1:19:11 PM Referred By: Arabella Orellana Confirmed By: Yang Conti 06/23/251318 Date Yang Conti MD CC: Dr. Tereza Lynch MD; Dr. Arabella Orellana MD Signed [facility] 12 Lead EKG [facility] [address] [place] [address] 12 Lead EKG 06/23/25 1042 MR#: [id number] Acct: [id number] Name: MARCELA DASH Rep #: [id number] : 2000 24 From: Yang Conti MD Attending Dr: Dr. Arabella Orellana MD Status: REG CLI Ordering Dr: Arabella Orellana MD Date: 06/23/25 Location: [facility] Sex: F C Admitted: Test Reason : TACHY W Blood Pressure : */* mmHG Vent. Rate : 76 BPM Atrial Rate : 76 BPM P-R Int : 124 ms QRS Dur : 78 ms QT Int : 364 ms P-R-T Axes : 41 62 36 degrees QTcB Int : 409 ms Normal sinus rhythm with sinus arrhythmia Normal ECG Confirmed by Yang Conti ([id number]), medical editor TIFFANY FREDERICK ([id number]) on 06/23/2025 1:19:11 PM Referred By: Arabella Orellana Confirmed By: Yang Conti 06/23/251318 Date Yang Conti MD CC: Dr. Tereza Lynch MD; Dr. Arabella Orellana MD Signed [facility] Electrocardiogram reportOrde red By: Yang Conti on 06-23-2025 EKG study [facility] [address] [place] [address] 12 Lead EKG 06/23/25 1042 MR#: [id number] Acct: [id number] Name: MARCELA DASH Rep #:[id number] : 2000 24 From: Yang nixon MD Attending Dr: Dr. Arabella Orellana MD Status: REG CLI Ordering Dr: Arabella Orellana MD Ashvin e: 06/23/25 Location: [facility] Sex: F C Admitted: Test Reason : TACHY W Blood Pressure : */* mmHG Vent. Rate : 76 BPM Atrial Rate : 76 BPM P-R Int : 124 ms QRS Dur : 78 ms QT Int : 364 ms P-R-T Axes : 41 62 36 degrees QTcB Int : 409 ms Normal sinus rhythm with sinus arrhythmia Normal ECG Confirmed by Yang Conti ([id number]), medical editor TIFFANY FREDERICK ([id number]) on 06/23/2025 1:19:11 PM Referred By: Arabella Orellana Confirmed By: Yang Conti 06/23/25 1319 Date _ Yang Conti MD CC: Dr. Tereza Lynch MD; Dr. Arabella Orellana MD ~ Signed [facility] Work Phone: Laboratory - Chemistry and C hemistry - challengeOrdered By: Arabella Orellana on 06-23-2025 Glucose Ql (U) Negative [facility] - UrinalysisOrder ed By: Arabella Orellana on 06-23-2025 Protein Ql (U) Negative 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 Office Visit Reporton 06-23-2025 Clothing Pattern Preparer Office Visit Report [facility]'s [address], [address] [place] [address] OFFICE VISIT Date of Service: 06/23/25 MR#: [id number] Acct: [id number] Name: MARCELA DASH Rep #: [id number] : 2000 Provider: Dr. Arabella lucio MD Age/Sex: 24/F [place] [facility]: Signed Intake Vital Signs 06/04/25 13:01 06/23/25 08:41 06/23/25 08:52 Height 5 ft 2 in 5 ft 2 in 5 ft 2 in Weight: 142 lb 7 oz BMI 26.0 BP 130/77 H Pulse 100 Intake Visit Reasons: OB Increased heart rate, palpitations Banquet Food Server Required: No Is patient in pain?: No (no pain, but describes a heaviness on her chest) Allergies No Known Allergies Allergy (Verified 06/23/25 08:47) Medications ???Medication ???Instructions ???Recorded ???Confirmed ???Type PNV 153-FA 400 mcg-om3 35 mg-dha tab PO 03/25/25 06/23/25 History 25 mg-epa 5 mg-fish oil chew tablet famotidine 20 mg tablet (Pepcid) 20 mg PO BID #60 tabs 05/07/25 Rx Last Menstrual Period: 01/28/25 Zika: Zika virus screening: Negative : No Nurse's Note: [facility] Medical History History of hysterosalpingogram Seasonal allergies Ovarian cyst UTI (urinary tract infection) Urinary frequency Surgical History No pertinent past surgical history Family History Grandfather Diabetes Maternal Paternal Heart disease Paternal Grandmother Breast cancer, Onset Age: 60 Paternal Mother Hypertension Father Hypertension Diabetes Social History adopted: No household members: spouse housing: house number of children: 0 current occupational status: employed 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[employer] current occupational exposures/hazards: No pets and animals: Yes pets and animals: dog(s) 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 history of recent travel: Yes ([place]) out of state: Yes out of country: No sexually active: Yes Smoking Status: Never smoker Electronic Cigarette Use: not used second hand exposure: No alcohol intake: never substance use type: does not use well-balanced diet: daily or most days caffeine: No eating out: rarely or never during the past year weight has: remained stable what type of physical activity do you participate in: walking frequency: 3-4 times per week duration: 30-45 minutes/day etienne/zoroastrian: [employer] seatbelt use: always do you feel safe at home: Yes 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 OB Visit STEFFANIE Calculator Estimated Delivery Date Method Current WG Current Estimate 11/04/25 LMP (Certain) 20w 6d Expected Delivery Route/Plan Labor Preferences- CB/BF classes: [] labor support person: [] labor intervention preferences: [] pain management options preferred: [] cut cord/dad catch: [] : [] PP control planned: [] discussed possible routes of delivery and associated risks: [] special requests: [] Specific Issue/Plans Covid status: [] Flu vaccine: [] Tdap vaccine: [] Rhogam: [] LARC form signed: [] Problem list reviewed and updated with the most current plan of care details and appropriate orders placed. Relevant counseling for the gestational age provided. Continue routine care and follow up unless otherwise noted in visit notes/problem list details Initial Weight: 137 lb Date -???-???-???-???-???- ???-???-???-???-???-? ??-???- EGA Weight BP Urine Prot -???-???-???-???-???- ???-???-???-???-???-? ??-???- Glucose FHR FuHt Pres Dilation -???-???-???-???-???- ???-???-???-???-???-? ??-???- Effaced St Visit Note 04/07/25 -???-???-???-???-???- ???-???-???-???-???-? ??-???- 9w 6d 137 lb 8 oz (+8 oz) 123/75 -???-???-???-???-???- ???-???-???-???-???-? ??-???- 171 -???-???-???-???-???- ???-???-???-???-???-? ??-???- JV- CRL cons istent with LMP. Still has some brown discharge. no lissa today or reason for bleeding. vaginitis smear was negative. 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 ??-???- 14w 1d 135 lb 4 oz (-1 lb 12 oz) 111/73 Negative -???-???-???-???-???- ???-???-???-???-???-? ??-???- Negative -???-???-???-???-???- ???-???-???-???-???-? ??-???- JV- no furth er bleeding. overall doing well with still layne (more content not included)... Normal 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 Office Visit Report [facility] [address], [address] [place] [address] OFFICE VISIT Date of Service: 06/23/25 MR#: [id number] Acct: [id number] Name: MARCELA DASH Rep #: [id number] : 2000 Provider: Dr. Arabella lucio MD Age/Sex: 24/F [place] [facility]: Signed Intake Vital Signs 06/04/25 13:01 06/23/25 08:41 06/23/25 08:52 Height 5 ft 2 in 5 ft 2 in 5 ft 2 in Weight: 142 lb 7 oz BMI 26.0 BP 130/77 H Pulse 100 Intake Visit Reasons: OB Increased heart rate, palpitations Banquet Food Server Required: No Is patient in pain?: No (no pain, but describes a heaviness on her chest) Allergies No Known Allergies Allergy (Verified 06/23/25 08:47) Medications ???Medication ???Instructions ???Recorded ???Confirmed ???Type PNV 153-FA 400 mcg-om3 35 mg-dha tab PO 03/25/25 06/23/25 History 25 mg-epa 5 mg-fish oil chew tablet famotidine 20 mg tablet (Pepcid) 20 mg PO BID #60 tabs 05/07/25 Rx Last Menstrual Period: 01/28/25 Zika: Zika virus screening: Negative : No Nurse's Note: [facility] Medical History History of hysterosalpingogram Seasonal allergies Ovarian cyst UTI (urinary tract infection) Urinary frequency Surgical History No pertinent past surgical history Family History Grandfather Diabetes Maternal Paternal Heart disease Paternal Grandmother Breast cancer, Onset Age: 60 Paternal Mother Hypertension Father Hypertension Diabetes Social History adopted: No household members: spouse housing: house number of children: 0 current occupational status: employed 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[employer] current occupational exposures/hazards: No pets and animals: Yes pets and animals: dog(s) 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 history of recent travel: Yes ([place]) out of state: Yes out of country: No sexually active: Yes Smoking Status: Never smoker Electronic Cigarette Use: not used second hand exposure: No alcohol intake: never substance use type: does not use well-balanced diet: daily or most days caffeine: No eating out: rarely or never during the past year weight has: remained stable what type of physical activity do you participate in: walking frequency: 3-4 times per week duration: 30-45 minutes/day etienne/zoroastrian: [employer] seatbelt use: always do you feel safe at home: Yes 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 OB Visit STEFFANIE Calculator Estimated Delivery Date Method Current WG Current Estimate 11/04/25 LMP (Certain) 20w 6d Expected Delivery Route/Plan Labor Preferences- CB/BF classes: [] labor support person: [] labor intervention preferences: [] pain management options preferred: [] cut cord/dad catch: [] : [] PP control planned: [] discussed possible routes of delivery and associated risks: [] special requests: [] Specific Issue/Plans Covid status: [] Flu vaccine: [] Tdap vaccine: [] Rhogam: [] LARC form signed: [] Problem list reviewed and updated with the most current plan of care details and appropriate orders placed. Relevant counseling for the gestational age provided. Continue routine care and follow up unless otherwise noted in visit notes/problem list details Initial Weight: 137 lb Date -???-???-???-???-???- ???-???-???-???-???-? ??-???- EGA Weight BP Urine Prot -???-???-???-???-???- ???-???-???-???-???-? ??-???- Glucose FHR FuHt Pres Dilation -???-???-???-???-???- ???-???-???-???-???-? ??-???- Effaced St Visit Note 04/07/25 -???-???-???-???-???- ???-???-???-???-???-? ??-???- 9w 6d 137 lb 8 oz (+8 oz) 123/75 -???-???-???-???-???- ???-???-???-???-???-? ??-???- 171 -???-???-???-???-???- ???-???-???-???-???-? ??-???- JV- CRL cons istent with LMP. Still has some brown discharge. no lissa today or reason for bleeding. vaginitis smear was negative. 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 ??-???- 14w 1d 135 lb 4 oz (-1 lb 12 oz) 111/73 Negative -???-???-???-???-???- ???-???-???-???-???-? ??-???- Negative -???-???-???-???-???- ???-???-???-???-???-? ??-???- JV- no furth er bleeding. overall doing well with still layne (more content not included)... Normal [facility] OB Anatomy w/ Transvaginalon 06-18-2025 OB Anatomy w/ Transvaginal [facility] Imaging Services [address] [place] [address] OB Anatomy w/ Transvaginal MR#: [id number] Acct: [id number] Name: MARCELA DASH Rep #: [id number] : 2000 F 24 From: Johny pelayo MD PCP: Dr. Tereza Lynch MD Status: REG CLI Study: OB Anatomy w/ Transvaginal Date of Exam: 06/18 Exam# [id number] Ordering Dr: Latoya Mcgregor DO PROCEDURE: OB ANATOMY W/ TRANSVAGINAL 06/18/2025 REASON FOR EXAM: CERVICAL LENGTH/ANATOMY TECHNIQUE: Procedure Code: USOBANATVAG Modality: US Procedure: OB ANATOMY W/ TRANSVAGINAL COMPARISON: April 15, 2025. FINDINGS Number: 1 Position: Vertex Placental Position: Posterior and not low-lying. Placental Abnormalities: No evidence of previa. There is evidence of a 2.3 cm 1.9 cm 1 cm subchorionic bleed along the left side of the placenta. DIMENSIONS: Biparietal Diameter: 4.6 cm: 19 weeks and 6 days: 40 percentile/ Head Circumference: 17.9 cm: 20 weeks and 3 days: 53rd percentile/ Abdominal Circumference: 15.4 cm: 20 weeks and 4 days: 58 percentile/ Femur Length: 3.1 cm: 19 weeks and 5 days: 29 percentile/ ESTIMATED WEIGHT: 339 g plus/-50 g ESTIMATED WEIGHT PERCENTILE (24+ weeks): 48 ESTIMATED GESTATIONAL AGE: Baseline: 20 weeks and 1 day By Ultrasound: 20 weeks and 1 day ESTIMATED DATE OF DELIVERY: Baseline: November 04, 2025 By Ultrasound: November 04, 2025 BIOPHYSICAL ASSESSMENT: Amniotic Fluid Volume: 2.8 cm x 8.3 cm Amniotic Fluid Index: Within normal limits. (8-24 cm normal range) Cardiac Motion: 144 beats per minute (average) Trunk and Limb Motion: Present. MATERNAL ANATOMY: Adnexa: Neither maternal ovary is successfully identified. Cervical Length (if measured): 4.7 cm ANATOMY: Spine: Unremarkable Cranium: Unremarkable Cerebellum: Unremarkable Cisterna Magna: Unremarkable Cavum Septum Pellucidi: Unremarkable Lateral Ventricles: Unremarkable Choroid Plexus: Unremarkable Midline Falx: Unremarkable Nuchal Fold: Unremarkable Upper Lip: Unremarkable Heart: Unremarkable Stomach: Unremarkable Kidneys: Unremarkable Bladder: Unremarkable Umbilical Cord: Unremarkable Extremities: Unremarkable US/OB Anatomy w/ Transvaginal IMPRESSION: Single live intrauterine gestation with a mean gestational age of 20 weeks and 1 day. Small subchorionic bleed. Reading Location: [facility] CC: Dr. Tereza Lynch MD; Dr. Latoya Mcgregor DO 911 Operator: Signed Normal [facility] OB Anatomy w/ Transvaginal [facility] Imaging Services [address] [place] [id number] OB Anatomy w/ Transvaginal MR#: [id number] Acct: [id number] Name: MARCELA DASH Rep #: [id number] : 2000 F 24 From: Johny pelayo MD PCP: Dr. Tereza Lynch MD Status: REG CLI Study: OB Anatomy w/ Transvaginal Date of Exam: 06/18 Exam# [id number] Ordering Dr: Latoya Mcgregor DO PROCEDURE: OB ANATOMY W/ TRANSVAGINAL 06/18/2025 REASON FOR EXAM: CERVICAL LENGTH/ANATOMY TECHNIQUE: Procedure Code: USOBANATVAG Modality: US Procedure: OB ANATOMY W/ TRANSVAGINAL COMPARISON: April 15, 2025. FINDINGS Number: 1 Position: Vertex Placental Position: Posterior and not low-lying. Placental Abnormalities: No evidence of previa. There is evidence of a 2.3 cm 1.9 cm 1 cm subchorionic bleed along the left side of the placenta. DIMENSIONS: Biparietal Diameter: 4.6 cm: 19 weeks and 6 days: 40 percentile/ Head Circumference: 17.9 cm: 20 weeks and 3 days: 53rd percentile/ Abdominal Circumference: 15.4 cm: 20 weeks and 4 days: 58 percentile/ Femur Length: 3.1 cm: 19 weeks and 5 days: 29 percentile/ ESTIMATED WEIGHT: 339 g plus/-50 g ESTIMATED WEIGHT PERCENTILE (24+ weeks): 48 ESTIMATED GESTATIONAL AGE: Baseline: 20 weeks and 1 day By Ultrasound: 20 weeks and 1 day ESTIMATED DATE OF DELIVERY: Baseline: November 04, 2025 By Ultrasound: November 04, 2025 BIOPHYSICAL ASSESSMENT: Amniotic Fluid Volume: 2.8 cm x 8.3 cm Amniotic Fluid Index: Within normal limits. (8-24 cm normal range) Cardiac Motion: 144 beats per minute (average) Trunk and Limb Motion: Present. MATERNAL ANATOMY: Adnexa: Neither maternal ovary is successfully identified. Cervical Length (if measured): 4.7 cm ANATOMY: Spine: Unremarkable Cranium: Unremarkable Cerebellum: Unremarkable Cisterna Magna: Unremarkable Cavum Septum Pellucidi: Unremarkable Lateral Ventricles: Unremarkable Choroid Plexus: Unremarkable Midline Falx: Unremarkable Nuchal Fold: Unremarkable Upper Lip: Unremarkable Heart: Unremarkable Stomach: Unremarkable Kidneys: Unremarkable Bladder: Unremarkable Umbilical Cord: Unremarkable Extremities: Unremarkable US/OB Anatomy w/ Transvaginal IMPRESSION: Single live intrauterine gestation with a mean gestational age of 20 weeks and 1 day. Small subchorionic bleed. Reading Location: [facility] CC: Dr. Tereza Lynch MD; Dr. Latoya Mcgregor DO 911 Operator: Signed Normal [facility] - Chemistry and C hemistry - challengeOrdered By: Katy Mcneil on 06-04-2025 Glucose Ql (U) Negative [facility] - UrinalysisOrder ed By: Katy Mcneil on 06-04-2025 Protein Ql (U) Negative 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 Office Visit Reporton 06-04-2025 Clothing Pattern Preparer Office Visit Report [facility] [address], [address] [place] [address] OFFICE VISIT Date of Service: 06/04/25 MR#: [id number] Acct: [id number] Name: MARCELA DASH Rep #: [id number] : 2000 Provider: HAYDEN tapia Age/Sex: 24/F [place] [facility] [place]: Signed Intake Vital Signs 05/07/25 10:52 06/04/25 13:01 Height 5 ft 2 in 5 ft 2 in Weight: 142 lb 7 oz BMI 26.0 BP 126/78 H Intake Visit Reasons: 18 WK OB Chief Complaint: 18 Week OB Banquet Food Server Required: No Is patient in pain?: No Allergies No Known Allergies Allergy (Verified 06/04/25 13:02) Medications ???Medication ???Instructions ???Recorded ???Confirmed ???Type PNV 153-FA 400 mcg-om3 35 mg-dha tab PO 03/25/25 06/04/25 History 25 mg-epa 5 mg-fish oil chew tablet famotidine 20 mg tablet (Pepcid) 20 mg PO BID #60 tabs 05/07/25 Rx Last Menstrual Period: 01/28/25 Zika: Zika virus screening: Negative : No [facility] Medical History History of hysterosalpingogram Seasonal allergies Ovarian cyst UTI (urinary tract infection) Urinary frequency Surgical History No pertinent past surgical history Family History Grandfather Diabetes Maternal Paternal Heart disease Paternal Grandmother Breast cancer, Onset Age: 60 Paternal Mother Hypertension Father Hypertension Diabetes Social History adopted: No household members: spouse housing: house number of children: 0 current occupational status: employed 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[employer] current occupational exposures/hazards: No pets and animals: Yes pets and animals: dog(s) 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 history of recent travel: Yes ([place]) out of state: Yes out of country: No sexually active: Yes Smoking Status: Never smoker Electronic Cigarette Use: not used second hand exposure: No alcohol intake: never substance use type: does not use well-balanced diet: daily or most days caffeine: No eating out: rarely or never during the past year weight has: remained stable what type of physical activity do you participate in: walking frequency: 3-4 times per week duration: 30-45 minutes/day etienne/zoroastrian: [employer] seatbelt use: always do you feel safe at home: Yes additional social history: 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 OB Visit STEFFANIE Calculator Estimated Delivery Date Method Current WG Current Estimate 11/04/25 LMP (Certain) 18w 1d Expected Delivery Route/Plan Labor Preferences- CB/BF classes: [] labor support person: [] labor intervention preferences: [] pain management options preferred: [] cut cord/dad catch: [] : [] PP control planned: [] discussed possible routes of delivery and associated risks: [] special requests: [] Specific Issue/Plans Covid status: [] Flu vaccine: [] Tdap vaccine: [] Rhogam: [] LARC form signed: [] Problem list reviewed and updated with the most current plan of care details and appropriate orders placed. Relevant counseling for the gestational age provided. Continue routine care and follow up unless otherwise noted in visit notes/problem list details Initial Weight: 137 lb Date -???-???-???-???-???- ???-???-???-???-???-? ??-???- EGA Weight BP Urine Prot -???-???-???-???-???- ???-???-???-???-???-? ??-???- Glucose FHR FuHt Pres Dilation -???-???-???-???-???- ???-???-???-???-???-? ??-???- Effaced St Visit Note 04/07/25 -???-???-???-???-???- ???-???-???-???-???-? ??-???- 9w 6d 137 lb 8 oz (+8 oz) 123/75 -???-???-???-???-???- ???-???-???-???-???-? ??-???- 171 -???-???-???-???-???- ???-???-???-???-???-? ??-???- JV- CRL cons istent with LMP. Still has some brown discharge. no lissa today or reason for bleeding. vaginitis smear was negative. 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 ??-???- 14w 1d 135 lb 4 oz (-1 lb 12 oz) 111/73 Negative -???-???-???-???-???- ???-???-???-???-???-? ??-???- Negative -???-???-???-???-???- ???-???-???-???-???-? ??-???- JV- no furth er bleeding. overall doing well with still some indigestion. 06/04/25 -???-???-???-???-???- ???-???-???-???-???-? ??-???- 18w 1d 142 lb 7 oz (+5 lb 7 oz) 126/78 Negative (more content not included)... Normal 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 Office Visit Report [facility] [address], [address] [place] [address] OFFICE VISIT Date of Service: 06/04/25 MR#: [id number] Acct: [id number] Name: MARCELA DASH Rep #: [id number] : 2000 Provider: HAYDEN tapia Age/Sex: 24/F [place] [facility]: Signed Intake Vital Signs 05/07/25 10:52 06/04/25 13:01 Height 5 ft 2 in 5 ft 2 in Weight: 142 lb 7 oz BMI 26.0 BP 126/78 H Intake Visit Reasons: 18 WK OB Chief Complaint: 18 Week OB Banquet Food Server Required: No Is patient in pain?: No Allergies No Known Allergies Allergy (Verified 06/04/25 13:02) Medications ???Medication ???Instructions ???Recorded ???Confirmed ???Type PNV 153-FA 400 mcg-om3 35 mg-dha tab PO 03/25/25 06/04/25 History 25 mg-epa 5 mg-fish oil chew tablet famotidine 20 mg tablet (Pepcid) 20 mg PO BID #60 tabs 05/07/25 Rx Last Menstrual Period: 01/28/25 Zika: Zika virus screening: Negative : No [facility] Medical History History of hysterosalpingogram Seasonal allergies Ovarian cyst UTI (urinary tract infection) Urinary frequency Surgical History No pertinent past surgical history Family History Grandfather Diabetes Maternal Paternal Heart disease Paternal Grandmother Breast cancer, Onset Age: 60 Paternal Mother Hypertension Father Hypertension Diabetes Social History adopted: No household members: spouse housing: house number of children: 0 current occupational status: employed 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[employer] current occupational exposures/hazards: No pets and animals: Yes pets and animals: dog(s) 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 history of recent travel: Yes ([place]) out of state: Yes out of country: No sexually active: Yes Smoking Status: Never smoker Electronic Cigarette Use: not used second hand exposure: No alcohol intake: never substance use type: does not use well-balanced diet: daily or most days caffeine: No eating out: rarely or never during the past year weight has: remained stable what type of physical activity do you participate in: walking frequency: 3-4 times per week duration: 30-45 minutes/day etienne/zoroastrian: [employer] seatbelt use: always do you feel safe at home: Yes additional social history: Christopher- [employer] [employer] Surgery History 1 Elective abortions Hx Para 0 Spontaneous abortions Hx # Term Pregnancies Ectopic pregnancies Hx # Pregnancies Multiple births # of living children HPI 18 WK OB Details: MARCELA DASH is a 24 year old who presents for routine OB visit. OB Visit STEFFANIE Calculator Estimated Delivery Date Method Current WG Current Estimate 11/04/25 LMP (Certain) 18w 1d Expected Delivery Route/Plan Labor Preferences- CB/BF classes: [] labor support person: [] labor intervention preferences: [] pain management options preferred: [] cut cord/dad catch: [] : [] PP control planned: [] discussed possible routes of delivery and associated risks: [] special requests: [] Specific Issue/Plans Covid status: [] Flu vaccine: [] Tdap vaccine: [] Rhogam: [] LARC form signed: [] Problem list reviewed and updated with the most current plan of care details and appropriate orders placed. Relevant counseling for the gestational age provided. Continue routine care and follow up unless otherwise noted in visit notes/problem list details Initial Weight: 137 lb Date -???-???-???-???-???- ???-???-???-???-???-? ??-???- EGA Weight BP Urine Prot -???-???-???-???-???- ???-???-???-???-???-? ??-???- Glucose FHR FuHt Pres Dilation -???-???-???-???-???- ???-???-???-???-???-? ??-???- Effaced St Visit Note 04/07/25 -???-???-???-???-???- ???-???-???-???-???-? ??-???- 9w 6d 137 lb 8 oz (+8 oz) 123/75 -???-???-???-???-???- ???-???-???-???-???-? ??-???- 171 -???-???-???-???-???- ???-???-???-???-???-? ??-???- JV- CRL cons istent with LMP. Still has some brown discharge. no lissa today or reason for bleeding. vaginitis smear was negative. 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 ??-???- 14w 1d 135 lb 4 oz (-1 lb 12 oz) 111/73 Negative -???-???-???-???-???- ???-???-???-???-???-? ??-???- Negative -???-???-???-???-???- ???-???-???-???-???-? ??-???- JV- no furth er bleeding. overall doing well with still some indigestion. 06/04/25 -???-???-???-???-???- ???-???-???-???-???-? ??-???- 18w 1d 142 lb 7 oz (+5 lb 7 oz) 126/78 Negative (more content not included)... Normal [facility] - Chemistry and C hemistry - challengeOrdered By: Latoya Bloom on 05-07-2025 Glucose Ql (U) Negative [facility] - UrinalysisOrder ed By: Latoya Bloom on 05-07-2025 Protein Ql (U) Negative 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 Office Visit Reporton 05-07-2025 Clothing Pattern Preparer Office Visit Report [facility] [address], [address] [place] [address] OFFICE VISIT Date of Service: 05/07/25 MR#: [id number] Acct: [id number] Name: MARCELA DASH Rep #: [id number] : 2000 Provider: Dr. Latoya Lara DO Age/Sex: 24/F Location: [facility] [place].[facility] Status: Signed Intake Vital Signs 02/12/25 11:47 04/07/25 13:07 05/07/25 10:52 05/07/25 10:52 Height 5 ft 2 in 5 ft 2 in 5 ft 2 in 5 ft 2 in Weight: 135 lb 4 oz BMI 24.7 BP 111/73 Intake Visit Reasons: 12 wk ob Banquet Food Server Required: No Is patient in pain?: No Allergies No Known Allergies Allergy (Verified 05/07/25 10:52) Medications ???Medication ???Instructions ???Recorded ???Confirmed ???Type PNV 153-FA 400 mcg-om3 35 mg-dha tab PO 03/25/25 05/07/25 History 25 mg-epa 5 mg-fish oil chew tablet Last Menstrual Period: 01/28/25 Zika: Zika virus screening: Negative : No [facility] Medical History History of hysterosalpingogram Seasonal allergies Ovarian cyst UTI (urinary tract infection) Urinary frequency Surgical History No pertinent past surgical history Family History Grandfather Diabetes Maternal Paternal Heart disease Paternal Grandmother Breast cancer, Onset Age: 60 Paternal Mother Hypertension Father Hypertension Diabetes Social History adopted: No household members: spouse housing: house number of children: 0 current occupational status: employed 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[employer] current occupational exposures/hazards: No pets and animals: Yes pets and animals: dog(s) 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 history of recent travel: Yes ([place]) out of state: Yes out of country: No sexually active: Yes Smoking Status: Never smoker Electronic Cigarette Use: not used second hand exposure: No alcohol intake: never substance use type: does not use well-balanced diet: daily or most days caffeine: No eating out: rarely or never during the past year weight has: remained stable what type of physical activity do you participate in: walking frequency: 3-4 times per week duration: 30-45 minutes/day etienne/zoroastrian: [employer] seatbelt use: always do you feel safe at home: Yes additional social history: Shannen [employer]ORY [facility] [employer] Surgery History 1 Elective abortions Hx Para 0 Spontaneous abortions Hx # Term Pregnancies Ectopic pregnancies Hx # Pregnancies Multiple births # of living children HPI 12 wk ob Details: MARCELA DASH is a 24 year old who presents for routine OB visit. OB Visit STEFFANIE Calculator Estimated Delivery Date Method Current WG Current Estimate 11/04/25 LMP (Certain) 14w 1d Expected Delivery Route/Plan Labor Preferences- CB/BF classes: [] labor support person: [] labor intervention preferences: [] pain management options preferred: [] cut cord/dad catch: [] : [] PP control planned: [] discussed possible routes of delivery and associated risks: [] special requests: [] Specific Issue/Plans Covid status: [] Flu vaccine: [] Tdap vaccine: [] Rhogam: [] LARC form signed: [] Problem list reviewed and updated with the most current plan of care details and appropriate orders placed. Relevant counseling for the gestational age provided. Continue routine care and follow up unless otherwise noted in visit notes/problem list details Initial Weight: 137 lb Date -???-???-???-???-???- ???-???-???-???-???-? ??-???- EGA Weight BP Urine Prot -???-???-???-???-???- ???-???-???-???-???-? ??-???- Glucose FHR FuHt Pres Dilation -???-???-???-???-???- ???-???-???-???-???-? ??-???- Effaced St Visit Note 04/07/25 -???-???-???-???-???- ???-???-???-???-???-? ??-???- 9w 6d 137 lb 8 oz (+8 oz) 123/75 -???-???-???-???-???- ???-???-???-???-???-? ??-???- 171 -???-???-???-???-???- ???-???-???-???-???-? ??-???- JV- CRL cons istent with LMP. Still has some brown discharge. no lissa today or reason for bleeding. vaginitis smear was negative. 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 ??-???- 14w 1d 135 lb 4 oz (-1 lb 12 oz) 111/73 -???-???-???-???-???- ???-???-???-???-???-? ??-???- -???-???-???-???-???- ???-???-???-???-???-? ??-???- JV- no furth er bleeding. overall doing well with still some indigestion. ACOG First Trimester First Trimester: Desire for , Alcohol, Tobacco Cessation, Illicit/Recreational Drug/Substance Use, Intimate Partner Violence, Barriers to care, Unsta (more content not included)... Normal 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 Office Visit Report [facility] [address] [place] [address], [address] [place] [address] OFFICE VISIT Date of Service: 05/07/25 MR#: [id number] Acct: [id number] Name: MARCELA DASH Rep #: [id number] : 2000 Provider: Dr. Latoya Lara DO Age/Sex: 24/F [place] [facility]: Signed Intake Vital Signs 02/12/25 11:47 04/07/25 13:07 05/07/25 10:52 05/07/25 10:52 Height 5 ft 2 in 5 ft 2 in 5 ft 2 in 5 ft 2 in Weight: 135 lb 4 oz BMI 24.7 BP 111/73 Intake Visit Reasons: 12 wk ob Banquet Food Server Required: No Is patient in pain?: No Allergies No Known Allergies Allergy (Verified 05/07/25 10:52) Medications ???Medication ???Instructions ???Recorded ???Confirmed ???Type PNV 153-FA 400 mcg-om3 35 mg-dha tab PO 03/25/25 05/07/25 History 25 mg-epa 5 mg-fish oil chew tablet Last Menstrual Period: 01/28/25 Zika: Zika virus screening: Negative : No [facility] Medical History History of hysterosalpingogram Seasonal allergies Ovarian cyst UTI (urinary tract infection) Urinary frequency Surgical History No pertinent past surgical history Family History Grandfather Diabetes Maternal Paternal Heart disease Paternal Grandmother Breast cancer, Onset Age: 60 Paternal Mother Hypertension Father Hypertension Diabetes Social History adopted: No household members: spouse housing: house number of children: 0 current occupational status: employed 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[employer] current occupational exposures/hazards: No pets and animals: Yes pets and animals: dog(s) 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 history of recent travel: Yes ([place]) out of state: Yes out of country: No sexually active: Yes Smoking Status: Never smoker Electronic Cigarette Use: not used second hand exposure: No alcohol intake: never substance use type: does not use well-balanced diet: daily or most days caffeine: No eating out: rarely or never during the past year weight has: remained stable what type of physical activity do you participate in: walking frequency: 3-4 times per week duration: 30-45 minutes/day etienne/zoroastrian: [employer] seatbelt use: always do you feel safe at home: Yes additional social history: Christopher- [employer] Surgery History 1 Elective abortions Hx Para 0 Spontaneous abortions Hx # Term Pregnancies Ectopic pregnancies Hx # Pregnancies Multiple births # of living children HPI 12 wk ob Details: MARCELA DASH is a 24 year old who presents for routine OB visit. OB Visit STEFFANIE Calculator Estimated Delivery Date Method Current WG Current Estimate 11/04/25 LMP (Certain) 14w 1d Expected Delivery Route/Plan Labor Preferences- CB/BF classes: [] labor support person: [] labor intervention preferences: [] pain management options preferred: [] cut cord/dad catch: [] : [] PP control planned: [] discussed possible routes of delivery and associated risks: [] special requests: [] Specific Issue/Plans Covid status: [] Flu vaccine: [] Tdap vaccine: [] Rhogam: [] LARC form signed: [] Problem list reviewed and updated with the most current plan of care details and appropriate orders placed. Relevant counseling for the gestational age provided. Continue routine care and follow up unless otherwise noted in visit notes/problem list details Initial Weight: 137 lb Date -???-???-???-???-???- ???-???-???-???-???-? ??-???- EGA Weight BP Urine Prot -???-???-???-???-???- ???-???-???-???-???-? ??-???- Glucose FHR FuHt Pres Dilation -???-???-???-???-???- ???-???-???-???-???-? ??-???- Effaced St Visit Note 04/07/25 -???-???-???-???-???- ???-???-???-???-???-? ??-???- 9w 6d 137 lb 8 oz (+8 oz) 123/75 -???-???-???-???-???- ???-???-???-???-???-? ??-???- 171 -???-???-???-???-???- ???-???-???-???-???-? ??-???- JV- CRL cons istent with LMP. Still has some brown discharge. no lissa today or reason for bleeding. vaginitis smear was negative. 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 ??-???- 14w 1d 135 lb 4 oz (-1 lb 12 oz) 111/73 -???-???-???-???-???- ???-???-???-???-???-? ??-???- -???-???-???-???-???- ???-???-???-???-???-? ??-???- JV- no furth er bleeding. overall doing well with still some indigestion. ACOG First Trimester First Trimester: Desire for , Alcohol, Tobacco Cessation, Illicit/Recreational Drug/Substance Use, Intimate Partner Violence, Barriers to care, Unsta (more content not included)... Normal [facility] Transvaginal w/Preg USon Transvaginal w/Preg [facility] Services [address] [place], [place] [address] Transvaginal w/Preg MR#: [id number] Acct: [id number] Name: MARCELA DASH Rep #: [id number] : 2000 F 24 From: Ambrose Wong MD PCP: Dr. Tereza Lynch MD Status: [facility] Study: Transvaginal w/Preg US Date of Exam: 04/15/25 Exam# [id number] Ordering Dr: Annika Lay CNM EXAM: US First Trimester , Transabdominal and Transvaginal CLINICAL INDICATION: BLEEDING IN PREG TECHNIQUE: Real-time transabdominal and transvaginal obstetrical ultrasound of the maternal pelvis and a first trimester with image documentation. Transvaginal imaging was used for better evaluation of the fetus and adnexa. COMPARISON: No relevant prior studies available. FINDINGS: GESTATION: Yolk sac 0.5 cm. CRL 4.6 cm. Gestational age 11 weeks and 2 days. heart rate 169 beats per minute. Gestational sac 5.1 cm. STEFFANIE: STEFFANIE 11/04/2025. PLACENTA/AMNIOTIC FLUID: Subchorionic bleed measuring up to 1.6 cm. UTERUS/CERVIX: Cervix closed. No myometrial mass. The uterus measures 9.3 x 10.4 x 7.0 cm. OVARIES: Unremarkable. No mass. The right ovary measures 3.2 x 2.3 x 2.4 cm. The left ovary measures 4.1 x 2.1 x 1.7 cm. FREE FLUID: No free fluid. US/Transvaginal w/Preg US IMPRESSION: A single live intrauterine as above. Reading Location: [facility] CC: ALEXEI Lay; Dr. Tereza Lynch MD 911 Operator: Signed Normal [facility] Transvaginal w/Preg US [facility] Imaging Services [address] [place], [place] [address] Transvaginal w/Preg US MR#: [id number] Acct: [id number] Name: MARCELA DASH Rep #: [id number] : 2000 F 24 From: Ambrose Wong MD PCP: Dr. Tereza Lynch MD Status: [facility] Study: Transvaginal w/Preg US Date of Exam: 04/15/25 Exam# [id number] Ordering Dr: Annika Lay CNM EXAM: US First Trimester , Transabdominal and Transvaginal CLINICAL INDICATION: BLEEDING IN PREG TECHNIQUE: Real-time transabdominal and transvaginal obstetrical ultrasound of the maternal pelvis and a first trimester with image documentation. Transvaginal imaging was used for better evaluation of the fetus and adnexa. COMPARISON: No relevant prior studies available. FINDINGS: GESTATION: Yolk sac 0.5 cm. CRL 4.6 cm. Gestational age 11 weeks and 2 days. heart rate 169 beats per minute. Gestational sac 5.1 cm. STEFFANIE: STEFFANIE 11/04/2025. PLACENTA/AMNIOTIC FLUID: Subchorionic bleed measuring up to 1.6 cm. UTERUS/CERVIX: Cervix closed. No myometrial mass. The uterus measures 9.3 x 10.4 x 7.0 cm. OVARIES: Unremarkable. No mass. The right ovary measures 3.2 x 2.3 x 2.4 cm. The left ovary measures 4.1 x 2.1 x 1.7 cm. FREE FLUID: No free fluid. US/Transvaginal w/Preg US IMPRESSION: A single live intrauterine as above. Reading Location: [facility] CC: ALEXEI Lay; Dr. Tereza Lynch MD 911 Operator: Signed Normal [facility] Chlamydia/GC RAMÓN aptimaon CHLAMY,NUC ACID Negative Normal Negative [facility] Comment on above: Performed By: #### M 100.2200, L7000.1800 #### [facility] [address] [place], [place], [id number] GC BY NUC ACID Negative Normal Negative [facility] Comment on above: Result Comment: Perf ormed at: =G - [facility] [address] [id number] [place] Commissioner: Rafia Mcclure MD, Phone: [phone] Performed By: #### M 100.2200, L7000.1800 #### [facility] [address] [place], [address] Urine Cultureon 04-10-2025 URC Below infection level. Mixed Gram Pos Gram Neg Org [place] Count 1000-10,000 MIXC Mixed contaminants. Submit a new specimen if indicated. Normal [facility] Comment on above: Performed By: #### M 100.2200, L7000.1800 #### [facility] [address] [place], [place], [id number] Chlamydia trachomatis rRNA d etection by probe and target amplification methodOrdered By: Latoya Bloom on 04-07-2025 C. trachomatis rRNA RAMÓN+probe Ql (Unsp spec) Negative Negative [facility] Neisseria gonorrhoeae nuclei c acid detection by amplified probe techniqueOrdered By: Latoya Bloom on 04-07-2025 N. gonorrhoeae DNA RAMÓN+probe Ql (Unsp spec) Negative Negative [facility] Comment on above: Performed at: = - [address] [address] [place] [id number] Director: Rafia Mcclure MD, Phone: [phone] Clothing Pattern Preparer Office Visit Reporton 04-07-2025 Clothing Pattern Preparer Office Visit Report [facility] [address], [address] [place] [address] OFFICE VISIT Date of Service: 04/07/25 MR#: [id number] Acct: [id number] Name: MARCELA DASH Rep #: [id number] : 2000 Provider: Dr. Latoya Lara, Age/Sex: 24/F [place] [facility] [place]: Signed Intake Vital Signs 02/12/25 11:47 03/25/25 10:57 04/03/25 08:40 04/07/25 13:05 04/07/25 13:07 Height 5 ft 2 in 5 ft 2 in 5 ft 2 in 5 ft 2 in 5 ft 2 in Weight: 139 lb 137 lb 8 oz BMI 25.4 25.1 BP 110/70 123/75 H Blood Pressure Location Lt brachial Position Sitting Intake Visit Reasons: *EST* NOB LMP 01/28, STEFFANIE 11/04 Banquet Food Server Required: No Is patient in pain?: No Allergies No Known Allergies Allergy (Verified 04/07/25 13:05) Medications ???Medication ???Instructions ???Recorded ???Confirmed ???Type PNV 153-FA 400 mcg-om3 35 mg-dha tab PO 03/25/25 04/07/25 History 25 mg-epa 5 mg-fish oil chew tablet Last Menstrual Period: 01/28/25 Zika: Zika virus screening: Negative : No PFSH PFSH Medical History History of hysterosalpingogram Seasonal allergies Ovarian cyst UTI (urinary tract infection) Urinary frequency Surgical History No pertinent past surgical history Family History Grandfather Diabetes Maternal Paternal Heart disease Paternal Grandmother Breast cancer, Onset Age: 60 Paternal Mother Hypertension Father Hypertension Diabetes Social History adopted: No household members: spouse housing: house number of children: 0 current occupational status: employed 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[employer] current occupational exposures/hazards: No pets and animals: Yes pets and animals: dog(s) 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 history of recent travel: Yes ([place]) out of state: Yes out of country: No sexually active: Yes Smoking Status: Never smoker Electronic Cigarette Use: not used second hand exposure: No alcohol intake: never substance use type: does not use well-balanced diet: daily or most days caffeine: No eating out: rarely or never during the past year weight has: remained stable what type of physical activity do you participate in: walking frequency: 3-4 times per week duration: 30-45 minutes/day etienne/zoroastrian: [employer] seatbelt use: always do you feel safe at home: Yes additional social history: 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 OB Visit STEFFANIE Calculator Estimated Delivery Date Method Current WG Current Estimate 11/04/25 LMP (Certain) 9w 6d Comments: HIV: Urine Culture: Sequential Screen: NIPT Screen: Estimated Due Date: 11/04/25 Expected Delivery Route/Plan Labor Preferences- CB/BF classes: [] labor support person: [] labor intervention preferences: [] pain management options preferred: [] cut cord/dad catch: [] : [] PP control planned: [] discussed possible routes of delivery and associated risks: [] special requests: [] Specific Issue/Plans Covid status: [] Flu vaccine: [] Tdap vaccine: [] Rhogam: [] LARC form signed: [] Problem list reviewed and updated with the most current plan of care details and appropriate orders placed. Relevant counseling for the gestational age provided. Continue routine care and follow up unless otherwise noted in visit notes/problem list details Initial Weight: 137 lb Date -???-???-???-???-???- ???-???-???-???-???-? ??-???- EGA Weight BP Urine Prot -???-???-???-???-???- ???-???-???-???-???-? ??-???- Glucose FHR FuHt Pres Dilation -???-???-???-???-???- ???-???-???-???-???-? ??-???- Effaced St Visit Note 04/07/25 -???-???-???-???-???- ???-???-???-???-???-? ??-???- 9w 6d 137 lb 8 oz (+8 oz) 123/75 -???-???-???-???-???- ???-???-???-???-???-? ??-???- 171 -???-???-???-???-???- ???-???-???-???-???-? ??-???- JV- CRL cons istent with LMP. Still has some brown discharge. no lissa today or reason for bleeding. vaginitis smear was negative. 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 Normal 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 Office Visit Report [facility] [address], [address] [place] [address] OFFICE VISIT Date of Service: 04/07/25 MR#: [id number] Acct: [id number] Name: MARCELA DASH Rep #: [id number] : 2000 Provider: Dr. Latoya Lara DO Age/Sex: 24/F [place] [facility] [place]: Signed Intake Vital Signs 02/12/25 11:47 03/25/25 10:57 04/03/25 08:40 04/07/25 13:05 04/07/25 13:07 Height 5 ft 2 in 5 ft 2 in 5 ft 2 in 5 ft 2 in 5 ft 2 in Weight: 139 lb 137 lb 8 oz BMI 25.4 25.1 BP 110/70 123/75 H Blood Pressure Location Lt brachial Position Sitting Intake Visit Reasons: *EST* NOB LMP 01/28, STEFFANIE 11/04 Banquet Food Server Required: No Is patient in pain?: No Allergies No Known Allergies Allergy (Verified 04/07/25 13:05) Medications ???Medication ???Instructions ???Recorded ???Confirmed ???Type PNV 153-FA 400 mcg-om3 35 mg-dha tab PO 03/25/25 04/07/25 History 25 mg-epa 5 mg-fish oil chew tablet Last Menstrual Period: 01/28/25 Zika: Zika virus screening: Negative : No PFSH [facility] Medical History History of hysterosalpingogram Seasonal allergies Ovarian cyst UTI (urinary tract infection) Urinary frequency Surgical History No pertinent past surgical history Family History Grandfather Diabetes Maternal Paternal Heart disease Paternal Grandmother Breast cancer, Onset Age: 60 Paternal Mother Hypertension Father Hypertension Diabetes Social History adopted: No household members: spouse housing: house number of children: 0 current occupational status: employed 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[employer] current occupational exposures/hazards: No pets and animals: Yes pets and animals: dog(s) 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 history of recent travel: Yes ([place]) out of state: Yes out of country: No sexually active: Yes Smoking Status: Never smoker Electronic Cigarette Use: not used second hand exposure: No alcohol intake: never substance use type: does not use well-balanced diet: daily or most days caffeine: No eating out: rarely or never during the past year weight has: remained stable what type of physical activity do you participate in: walking frequency: 3-4 times per week duration: 30-45 minutes/day etienne/zoroastrian: [employer] seatbelt use: always do you feel safe at home: Yes additional social history: 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 OB Visit STEFFANIE Calculator Estimated Delivery Date Method Current WG Current Estimate 11/04/25 LMP (Certain) 9w 6d Comments: HIV: Urine Culture: Sequential Screen: NIPT Screen: Estimated Due Date: 11/04/25 Expected Delivery Route/Plan Labor Preferences- CB/BF classes: [] labor support person: [] labor intervention preferences: [] pain management options preferred: [] cut cord/dad catch: [] : [] PP control planned: [] discussed possible routes of delivery and associated risks: [] special requests: [] Specific Issue/Plans Covid status: [] Flu vaccine: [] Tdap vaccine: [] Rhogam: [] LARC form signed: [] Problem list reviewed and updated with the most current plan of care details and appropriate orders placed. Relevant counseling for the gestational age provided. Continue routine care and follow up unless otherwise noted in visit notes/problem list details Initial Weight: 137 lb Date -???-???-???-???-???- ???-???-???-???-???-? ??-???- EGA Weight BP Urine Prot -???-???-???-???-???- ???-???-???-???-???-? ??-???- Glucose FHR FuHt Pres Dilation -???-???-???-???-???- ???-???-???-???-???-? ??-???- Effaced St Visit Note 04/07/25 -???-???-???-???-???- ???-???-???-???-???-? ??-???- 9w 6d 137 lb 8 oz (+8 oz) 123/75 -???-???-???-???-???- ???-???-???-???-???-? ??-???- 171 -???-???-???-???-???- ???-???-???-???-???-? ??-???- JV- CRL cons istent with LMP. Still has some brown discharge. no lissa today or reason for bleeding. vaginitis smear was negative. 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 Normal [facility] Urine cultureOrdered By: Anay Bloom on 04-07-2025 Bacteria identified Cx Nom (U) Mixed Gram Pos & Gram Neg Org Abnormal [facility] Genital Culture Comprehensiv grace 04-06-2025 VAC Reason for Exam: vaginal bleeding Normal vaginal wilda isolated. No yeast, Gardnerella, Neisseria or beta-hemolytic Streptococcus isolated. Normal [facility] Comment on above: Performed By: #### M 100.3200, L501.9985, M100.1999 ####[facility] [address] [place], [place], [id number] Performed By: #### L 509.5202, L501.0250, L100.0100, L3890.6006 #### [facility] [address] [place], [address] Absolute lymphocyte countOrd ered By: Latoya Bloom on 04-03-2025 Lymphocytes Auto (Unsp spec) [#/Vol] 1.20 10*3/uL 0.83-4.51 [facility] Absolute neutrophil countOrd ered By: Latoya Bloom on 04-03-2025 Neutrophils (Bld) [#/Vol] 5.5 10*3/uL 2.0-7.7 [facility] Automated lymphocyte count a s percentage of total leukocytesOrdered By: Latoya Garsiamaria esther on 04-03-2025 Lymphocytes/100 WBC Auto (Unsp spec) 16.3 % Low 19-41 [facility] Basophil percentageOrdered B y: Latoya Bloom on 04-03-2025 Basophils/100 WBC (Bld) 0.3 % 0-1 [facility] CBC W/Diff, Automatedon 03-10 Absolute Lymph 1.20 X10 3/uL Normal 0.83-4.51 [facility] Comment on above: Performed By: #### L 3890.6102, L3890.6301, L100.0100, BTS, L3890.6006, L509.8002, L509.4006 #### [facility] [address] [place], [address] Absolute Neut 5.5 X10 3/uL Normal 2.0-7.7 [facility] Comment on above: Performed By: #### L 3890.6102, L3890.6301, L100.0100, BTS, L3890.6006, L509.8002, L509.4006 #### [facility] [address] [place], [address] Basophils/100 WBC (Bld) 0.3 % Normal 0-1 [facility] Comment on above: Performed By: #### L 3890.6102, L3890.6301, L100.0100, BTS, L3890.6006, L509.8002, L509.4006 #### [facility] [address] [place], [address] Eosinophils/100 WBC (Bld) 0.5 % Normal 0-5 [facility] Comment on above: Performed By: #### L 3890.6102, L3890.6301, L100.0100, BTS, L3890.6006, L509.8002, L509.4006 #### [facility] [address] [place], [address] Erythrocyte distribution width (RBC) [Ratio] 12.4 % Normal 11.6-14.6 [facility] Comment on above: Performed By: #### L 3890.6102, L3890.6301, L100.0100, BTS, L3890.6006, L509.8002, L509.4006 #### [facility] [address] [place], [address] Hematocrit (Bld) [Volume fraction] 40.1 % Normal 37-47 [facility] Comment on above: Performed By: #### L 3890.6102, L3890.6301, L100.0100, BTS, L3890.6006, L509.8002, L509.4006 #### [facility] [address] [place], [address] Hemoglobin (Bld) [Mass/Vol] 13.6 g/dL Normal 12.0-15.0 [facility] Comment on above: Performed By: #### L 3890.6102, L3890.6301, L100.0100, BTS, L3890.6006, L509.8002, L509.4006 #### [facility] [address] [place], [address] IG% 0.300 Normal 0.0-0.9 [facility] Comment on above: Result Comment: IG% - Immature Granulocytes (promyelocytes, myelocytes and metamyelocytes) > 1% indicates that a LEFT SHIFT is Present. Performed By: #### L 3890.6102, L3890.6301, L100.0100, BTS, L3890.6006, L509.8002, L509.4006 #### [facility] [address] [place], [address] Lymphocytes/100 WBC (Bld) 16.3 % Low 19-41 [facility] Comment on above: Performed By: #### L 3890.6102, L3890.6301, L100.0100, BTS, L3890.6006, L509.8002, L509.4006 #### [facility] [address] [place], [address] MCH (RBC) [Entitic mass] 30.5 pg Normal 27.0-32.0 [facility] Comment on above: Performed By: #### L 3890.6102, L3890.6301, L100.0100, BTS, L3890.6006, L509.8002, L509.4006 #### [facility] [address] [place], [address] MCHC (RBC) [Mass/Vol] 33.9 g/dL Normal 32-36 [facility] Comment on above: Performed By: #### L 3890.6102, L3890.6301, L100.0100, BTS, L3890.6006, L509.8002, L509.4006 #### [facility] [address] [place], [address] MCV (RBC) [Entitic vol] 89.9 fL Normal 81-99 [facility] Comment on above: Performed By: #### L 3890.6102, L3890.6301, L100.0100, BTS, L3890.6006, L509.8002, L509.4006 #### [facility] [address] [place], [address] Monocytes/100 WBC (Bld) 8.8 % Normal 0-10 [facility] Comment on above: Performed By: #### L 3890.6102, L3890.6301, L100.0100, BTS, L3890.6006, L509.8002, L509.4006 #### [facility] [address] [place], [address] Neutrophils/100 WBC (Bld) 73.8 % High 47-70 [facility] Comment on above: Performed By: #### L 3890.6102, L3890.6301, L100.0100, BTS, L3890.6006, L509.8002, L509.4006 #### [facility] [address] [place], [address] Nucleated RBC (Bld) [#/Vol] 0 10*3/uL Normal 0-5 [facility] Comment on above: Performed By: #### L 3890.6102, L3890.6301, L100.0100, BTS, L3890.6006, L509.8002, L509.4006 #### [facility] [address] [place], [address] Platelet mean volume (Bld) [Entitic vol] 9.4 fL Normal 6.2-12.0 [facility] Comment on above: Performed By: #### L 3890.6102, L3890.6301, L100.0100, BTS, L3890.6006, L509.8002, L509.4006 #### [facility] [address] [place], [address] Platelets (Bld) [#/Vol] 320 10*3/uL Normal 150-450 [facility] Comment on above: Performed By: #### L 3890.6102, L3890.6301, L100.0100, BTS, L3890.6006, L509.8002, L509.4006 #### [facility] [address] [place], [address] RBC (Bld) [#/Vol] 4.46 10*6/uL Normal 4.2-5.4 [facility] Comment on above: Performed By: #### L 3890.6102, L3890.6301, L100.0100, BTS, L3890.6006, L509.8002, L509.4006 #### [facility] [address] [place], [address] RDW SD 40.5 fl Normal 35.1-43.9 [facility] Comment on above: Performed By: #### L 3890.6102, L3890.6301, L100.0100, BTS, L3890.6006, L509.8002, L509.4006 #### [facility] [address] [place], [address] WBC (Bld) [#/Vol] 7.4 10*3/uL Normal 4.4-11.0 [facility] Comment on above: Performed By: #### L 3890.6102, L3890.6301, L100.0100, BTS, L3890.6006, L509.8002, L509.4006 #### [facility] [address] [place], [address] Eosinophil percentageOrdered By: Latoya Bloom on 04-03-2025 Eosinophils/100 WBC (Bld) 0.5 % 0-5 [facility] Erythrocyte distribution wid th ratioOrdered By: Latoya Bloom on 04-03-2025 Erythrocyte distribution width (RBC) [Ratio] 12.4 % 11.6-14.6 [facility] Erythrocyte distribution wid th standard deviationOrdered By: Latoya Bloom on 04-03-2025 Erythrocyte distribution width (RBC) [Ratio] 40.5 fl 35.1-43.9 [facility] Genital cultureOrdered By: Brad Orellana on 04-03-2025 Source specific culture Neisseria or beta-hemolytic Streptococcus isolated. [facility] Gram Stainon 04-03-2025 GS Reason for Exam: vaginal bleeding Gram Stain 3+ Gram positive rods 2+ Gram variable johny No Gram negative diplococci Score = 3 Interpretation: 0-3 Normal, 4-6 Intermediate, 7-10 Positive BV Normal [facility] Comment on above: Performed By: #### M 100.3200, L501.9985, M100.2000 ####[facility] [address] [place], [address] Performed By: #### L 509.8002, L501.0250, L100.0100, L3890.6006 #### [facility] [address] [place], [address] Gram stainOrdered By: Arabella Orellana on 04-03-2025 Microscopic observation Gram stain Nom (Unsp spec) [facility] HIVon 04-03-2025 HIV Non-Reactive Normal Nonreactive [facility] Comment on above: Result Comment: Non- Reactive Reactive Repeatedly reactive samples must be confirmed according to CDC recommended confirmatory algorithms. The subresults for either HIVAG or AHIV can be used as an aid in the selection of the confirmation algorithm for reactive samples. Send out specimens with Reactive results to [facility] for confirmation. Order the HIV antibody detection and differentiation: lc#[id number] Performed By: #### L 3890.6102, L3890.6301, L100.0100, BTS, L3890.6006, L509.8002, L509.4006 #### [facility] [address] [place], [address] Performed By: #### L 801.2600 #### [facility] [address] [place], [address] Hematocrit Auto (Bld) [Volum e fraction]Ordered By: Latoya Bloom on 04-03-2025 Hematocrit (Bld) [Volume fraction] 40.1 % 37-47 [facility] Hemoglobin A1con 04-03-2025 HbA1c (Bld) [Mass fraction] 5.1 % Normal <=5.6 [facility] Comment on above: Result Comment: Norm al < 5.7 % Prediabetic 5.7 - 6.4 % Diabetic >or= 6.5 % Please note range changes. Performed By: #### M 100.3200, L501.9985, M100.2000 ####[facility] [address] [place], [address] Performed By: #### L 509.8002, L501.0250, L100.0100, L3890.6006 #### [facility] [address] [place], [address] Hemoglobin A1c percentageOrd ered By: Arabella Orellana on 04-03-2025 HbA1c (Bld) [Mass fraction] 5.1 % <5.7 [facility] Comment on above: Normal < 5.7 % Predi abetic 5.7 - 6.4 % Diabetic >or= 6.5 % Please note range changes. Hemoglobin measurementOrdere d By: Latoya Bloom on 04-03-2025 Hemoglobin (Bld) [Mass/Vol] 13.6 g/dL 12.0-15.0 [facility] Hepatitis C Antibodyon 04-03 Hepatitis C Ab Non-Reactive Normal Nonreactive [facility] Comment on above: Result Comment: Reac tive: Presumptive evidence of antibodies to HCV. Follow CDC recommendations for supplemental testing. Non-Reactive: Antibodies to HCV were not detected; does not exclude the possibility of exposure to HCV Reactive Results are presumptive evidence of antibodies to HCV. Follow CDC recommendations for supplemental testing. Order confirmation testing: HCV Quant by PCR testing - [facility] #[id number] Non Reactive: < 0.8 Equivocal: >/= 0.8 to < 1.0 Reactive: >/= 1.0 The CDC requires that a reactive/equivocal HCV antibody result be sent out for confirmation. HCV Quant by PCR testing. Performed By: #### L 3890.6102, L3890.6301, L100.0100, BTS, L3890.6006, L509.8002, L509.4006 ####[facility] [address] [place], [address] Performed By: #### L 801.2600 #### [facility] [address] [facility] [place], [address] Immature granulocytes/100 WB C Auto (Bld)Ordered By: Latoya Bloom on 04-03-2025 Immature granulocytes/100 WBC (Bld) 0.300 % 0.0-0.9 [facility] Comment on above: IG% - Immature Granu locytes (promyelocytes, myelocytes and metamyelocytes) > 1% indicates that a LEFT SHIFT is Present. L3890.6102on 04-03-2025 HEP B Surf Ag Non-Reactive Normal Nonreactive [facility] Comment on above: Result Comment: Reac tive: Presumptive evidence of HBV. Repeatedly reactive samples must be confirmed using a neutralization test ([employer] HBsAg Confirmatory Test) Non-Reactive: HBsAg not detected; does not exclude the possibility of exposure to HBV Performed By: #### L 3890.6102, L3890.6301, L100.0100, BTS, L3890.6006, L509.8002, L509.4006 #### [facility] [address] [facility] [place], [address] Performed By: #### L 801.2600 #### [facility] [address] [facility] [place], [address] L509.4006on 04-03-2025 Rubella IgG REAC Normal Nonreactive [facility] Comment on above: Result Comment: Anti body Result: Interpretation Non-Reactive: Non-Immune Reactive: Immune The following results were obtained with the [employer] Rubella IgG assay. Results from assays of other manufacturers cannot be used interchangeably. Performed By: #### L 3890.6102, L3890.6301, L100.0100, BTS, L3890.6006, L509.8002, L509.4006 #### [facility] [address] [place], [place], [address] Performed By: #### L 801.2600 #### [facility] [address] [place], [address] Laboratory - Microbiology an d Antimicrobial susceptibilityOrdered By: Latoya Bloom on 04-03-2025 HBV surface Ag Ql (S) Non-Reactive Nonreactive [facility] Comment on above: Reactive: Presumptiv e evidence of HBV. Repeatedly reactive samples must be confirmed using a neutralization test ([employer] HBsAg Confirmatory Test)Non-Reactive: HBsAg not detected; does not exclude the possibility of exposure to HBV MCV (mean corpuscular volume ) determinationOrdered By: Latoya Bloom on 04-03-2025 MCV (RBC) [Entitic vol] 89.9 fL 81-99 [facility] Mean corpuscular hemoglobin (MCH) determinationOrdered By: Latoya Bloom on 04-03-2025 MCH (RBC) [Entitic mass] 30.5 pg 27.0-32.0 [facility] Mean corpuscular hemoglobin concentration (MCHC) determinationOrdered By: Latoya Bloom on 04-03-2025 MCHC (RBC) [Mass/Vol] 33.9 g/dL 32-36 [facility] Mean platelet volume determi nationOrdered By: Latoya Bloom on 04-03-2025 Platelet mean volume (Bld) [Entitic vol] 9.4 fL 6.2-12.0 [facility] Monocyte percentageOrdered B y: Latoya Bloom on 04-03-2025 Monocytes/100 WBC (Bld) 8.8 % 0-10 [facility] Neutrophil percentageOrdered By: Latoya Bloom on 04-03-2025 Neutrophils/100 WBC (Bld) 73.8 % High 47-70 [facility] No Panel InformationOrdered By: Latoya Bloom on 04-03-2025 HIV (1&2) Antibody Non-Reactive Nonreactive [facility] Comment on above: Non-ReactiveReactive Repeatedly reactive samples must be confirmed according to CDC recommended confirmatory algorithms. The subresults for either HIVAG or AHIV can be used as an aid in the selection of the confirmation algorithm for reactive samples.Send out specimens with Reactive results to [facility] for confirmation.Order the HIV antibody detection and differentiation: #[id number] Nucleated red blood cell per centageOrdered By: Latoya Bloom on 04-03-2025 Nucleated RBC/100 WBC (Bld) [Ratio] 0 % 0-5 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 Office Visit Reporton 04-03-2025 Clothing Pattern Preparer Office Visit Report [facility] [address], [address] [place] [address] OFFICE VISIT Date of Service: 04/03/25 MR#: [id number] Acct: [id number] Name: MARCELA DASH Rep #: [id number] : 2000 Provider: Dr. Arabella lucio MD Age/Sex: 24/F [place] [facility]: Signed Intake Vital Signs 03/25/25 10:57 04/03/25 08:38 04/03/25 08:40 Height 5 ft 2 in 5 ft 2 in 5 ft 2 in Weight: 136 lb 6 oz BMI 24.9 BP 133/83 H Intake Visit Reasons: Early OB spotting Banquet Food Server Required: No Is patient in pain?: No Allergies No Known Allergies Allergy (Verified 04/03/25 08:38) Medications ???Medication ???Instructions ???Recorded ???Confirmed ???Type PNV 153-FA 400 mcg-om3 35 mg-dha tab PO 03/25/25 04/03/25 History 25 mg-epa 5 mg-fish oil chew tablet Is last menstrual period known: Yes Post menopausal: No Patient : Yes : No PFSH Medical History (Updated 04/03/25 @ 09:[address] 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[employer] current occupational exposures/hazards: No pets and animals: Yes pets and animals: dog(s) 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 history of recent travel: Yes ([place]) out of state: Yes out of country: No sexually active: Yes Smoking Status: Never smoker Electronic Cigarette Use: not used second hand exposure: No alcohol intake: never substance use type: does not use well-balanced diet: daily or most days caffeine: No eating out: rarely or never during the past year weight has: remained stable what type of physical activity do you participate in: walking frequency: 3-4 times per week duration: 30-45 minutes/day etienne/zoroastrian: [employer] seatbelt use: always do you feel safe at home: Yes 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 she denies any signifciant crmaping, started bleeidng red earlier this week and now has brown discharge when she wipes. She has a history of infertility and she conceived now, had an ultrasound at work this week showing FHT present. she denies any bowel complaints. she denies any vaginal infection symptoms. History 1 Elective abortions Hx Para 0 Spontaneous abortions Hx # Term Pregnancies Ectopic pregnancies Hx # Pregnancies Multiple births # of living children ROS Const Constitutional: Reports as per HPI; Denies fever(s) ENT ENT: Reports system reviewed and no additional complaints, except as documented Cardio Card: Reports system reviewed and no additional complaints, except as documented Resp Resp: Reports system reviewed and no additional complaints, except as documented GI GI: Reports as per HPI : Reports as per HPI Musc Musc: Reports system reviewed and no additional complaints, except as documented Skin Skin/Breast: Reports system reviewed and no additional complaints, except as documented Neuro Neuro: Reports system reviewed and no additional complaints, except as documented Endo Endo: Reports system reviewed and no additional complaints, except as documented Exam Const General: healthy appearing, comfortable and no acute distress HENMT Head: normal to inspection and normocephalic Neck Neck: no lymphadenopathy noted Thyroid: thyroid normal Chest Chest palpation inspection: normal inspection of the chest Resp Effort Inspection: normal respiratory effort Cardio Rate: regular rate Rhythm: regular rhythm GI Inspection: normal to inspection Palpation: soft and nontender External Female Exam: normal external appearance Speculum Exam - Vagina: normal appearance of the vagina and vaginal bleeding Bimanual Exam- Vagina Uterus: uterine shape normal and non-tender OB/External Speculum: vaginal bleeding Speculum Exam: vaginal bleeding Skin General: no rashes or lesions noted Neuro General: no focal motor deficits Extrem General: normal to inspection and no pedal edema Psych Appearance: grossly normal Coding Level of Care Code No Charge Arlen (more content not included)... 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 Arabella lucio MD Age/Sex: 24/F [place] [facility] [place]: Signed Intake Vital Signs 03/25/25 10:57 04/03/25 08:38 04/03/25 08:40 Height 5 ft 2 in 5 ft 2 in 5 ft 2 in Weight: 136 lb 6 oz BMI 24.9 BP 133/83 H Intake Visit Reasons: Early OB spotting Banquet Food Server Required: No Is patient in pain?: No Allergies No Known Allergies Allergy (Verified 04/03/25 08:38) Medications ???Medication ???Instructions ???Recorded ???Confirmed ???Type PNV 153-FA 400 mcg-om3 35 mg-dha tab PO 03/25/25 04/03/25 History 25 mg-epa 5 mg-fish oil chew tablet Is last menstrual period known: Yes Post menopausal: No Patient : Yes : No [facility] Medical History (Updated 04/03/25 @ 09:[address] 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[employer] current occupational exposures/hazards: No pets and animals: Yes pets and animals: dog(s) 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 history of recent travel: Yes ([place]) out of state: Yes out of country: No sexually active: Yes Smoking Status: Never smoker Electronic Cigarette Use: not used second hand exposure: No alcohol intake: never substance use type: does not use well-balanced diet: daily or most days caffeine: No eating out: rarely or never during the past year weight has: remained stable what type of physical activity do you participate in: walking frequency: 3-4 times per week duration: 30-45 minutes/day etienne/zoroastrian: [employer] seatbelt use: always do you feel safe at home: Yes 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 she denies any signifciant crmaping, started bleeidng red earlier this week and now has brown discharge when she wipes. She has a history of infertility and she conceived now, had an ultrasound at work this week showing FHT present. she denies any bowel complaints. she denies any vaginal infection symptoms. History 1 Elective abortions Hx Para 0 Spontaneous abortions Hx # Term Pregnancies Ectopic pregnancies Hx # Pregnancies Multiple births # of living children ROS Const Constitutional: Reports as per HPI; Denies fever(s) ENT ENT: Reports system reviewed and no additional complaints, except as documented Cardio Card: Reports system reviewed and no additional complaints, except as documented Resp Resp: Reports system reviewed and no additional complaints, except as documented GI GI: Reports as per HPI : Reports as per HPI Musc Musc: Reports system reviewed and no additional complaints, except as documented Skin Skin/Breast: Reports system reviewed and no additional complaints, except as documented Neuro Neuro: Reports system reviewed and no additional complaints, except as documented Endo Endo: Reports system reviewed and no additional complaints, except as documented Exam Const General: healthy appearing, comfortable and no acute distress HENMT Head: normal to inspection and normocephalic Neck Neck: no lymphadenopathy noted Thyroid: thyroid normal Chest Chest palpation inspection: normal inspection of the chest Resp Effort Inspection: normal respiratory effort Cardio Rate: regular rate Rhythm: regular rhythm GI Inspection: normal to inspection Palpation: soft and nontender External Female Exam: normal external appearance Speculum Exam - Vagina: normal appearance of the vagina and vaginal bleeding Bimanual Exam- Vagina Uterus: uterine shape normal and non-tender OB/External Speculum: vaginal bleeding Speculum Exam: vaginal bleeding Skin General: no rashes or lesions noted Neuro General: no focal motor deficits Extrem General: normal to inspection and no pedal edema Psych Appearance: grossly normal Coding Level of Care Code No Charge Arlen (more content not included)... Normal [facility] Platelet countOrdered By: Benito Bloom on 04-03-2025 Platelets (Bld) [#/Vol] 320 10*3/uL 150-450 [facility] RBC Auto (Bld) [#/Vol]Ordere d By: Latoya Bloom on 04-03-2025 RBC (Bld) [#/Vol] 4.46 10*6/uL 4.2-5.4 [facility] Syphilis Antibodieson 2024 Syphilis Abs Non-Reactive Normal Nonreactive [facility] Comment on above: Performed By: #### L 3890.6102, L3890.6301, L100.0100, BTS, L3890.6006, L509.8002, L509.4006 #### [facility] [address] [place], [place], [id number] Performed By: #### L 801.2600 #### [facility] [address] [facility] [place], [place], [id number] Type AND Screenon 04-03-2025 ABO and Rh group Nom (Bld) Blood group A Rh(D) positive Normal [facility] Comment on above: Order Comment: PN Performed By: #### L 3890.6102, L3890.6301, L100.0100, BTS, L3890.6006, L509.8002, L509.4006 #### [facility] [address] [place], [address] White blood cell (WBC) count Ordered By: Latoya Bloom on 04-03-2025 WBC (Bld) [#/Vol] 7.4 10*3/uL 4.4-11.0 [facility] - Chemistry and C hemistry - challengeOrdered By: Latoya Bloom on 03-25-2025 HCG ( test) Ql (U) Positive [facility] Office Visit Reporton 2024 Office Visit Report [facility] [address] [place] [address] OFFICE VISIT Date of Service: 04/07/25 MR#: [id number] Acct: [id number] Patient: MARCELA DASH Rep #: [id number] : 2000 Provider: Dr. Latoya Lara DO Age/Sex: 24/F [place] [facility] [place]: Signed Intake Vital Signs 02/12/25 11:47 03/25/25 10:57 Height 5 ft 2 in 5 ft 2 in Weight: 139 lb BMI 25.4 BP 110/70 Blood Pressure Location Lt brachial Position Sitting Intake Visit Reasons: *EST* NOB LMP 01/28, STEFFANIE 11/04 Chief Complaint: Discuss letrozole Banquet Food Server Required: No Accompanied by: Is patient in pain?: No Allergies No Known Allergies Allergy (Verified 03/25/25 10:58) Medications ???Medication ???Instructions ???Recorded ???Confirmed ???Type PNV 153-FA 400 mcg-om3 35 mg-dha tab PO 03/25/25 03/25/25 History 25 mg-epa 5 mg-fish oil chew tablet Is last menstrual period known: Yes Last menstrual period: 01/28/25 Post menopausal: No Patient : Yes Nurse's Note: Pt here for secondary amenorrhea. Office UPT: positive. Vitals WNL. PNOB questions completed. Problem list, allergies, and medications updated. First trimester ACOG education completed. Nursing Note patient is here for amenorrhea and a test and orientation to our practice. Assessment and Plan Assessment and Plan (1) Amenorrhea: Status: Acute Comment: +UPT Orders: Orders CBC W/Diff, Automated 03/25/25 Z34.90 - Encounter for supervision of normal , unspecified, unspecified trimester Type Screen 03/25/25 Z34.90 - Encounter for supervision of normal , unspecified, unspecified trimester Rubella IgG 03/25/25 Z34.90 - Encounter for supervision of normal , unspecified, unspecified trimester Hepatitis C Antibody 03/25/25 Z34.90 - Encounter for supervision of normal , unspecified, unspecified trimester Hepatitis B Surface Antigen 03/25/25 Z34.90 - Encounter for supervision of normal , unspecified, unspecified trimester Culture, Urine 03/25/25 Z34.90 - Encounter for supervision of normal , unspecified, unspecified trimester Syphilis Antibodies 03/25/25 Z34.90 - Encounter for supervision of normal , unspecified, unspecified trimester Chlamydia/GC RAMÓN aptima 03/25/25 Z34.90 - Encounter for supervision of normal , unspecified, unspecified trimester HIV 03/25/25 Z34.90 - Encounter for supervision of normal , unspecified, unspecified trimester POC Urine 03/25/25 N91.2 - Amenorrhea, unspecified 03/27/252057 Date Latoya Mcgregor DO [facility] Signature: Date (if applicable) CC: Normal [facility] Office Visit Report [facility] [address] [place] [address] OFFICE VISIT Date of Service: 04/07/25 MR#: [id number] Acct: [id number] Patient: MARCELA DASH Rep #: [id number] : 2000 Provider: Dr. Latoya Lara, Age/Sex: 24/F [place] [facility] [place]: Signed Intake Vital Signs 02/12/25 11:47 03/25/25 10:57 Height 5 ft 2 in 5 ft 2 in Weight: 139 lb BMI 25.4 BP 110/70 Blood Pressure Location Lt brachial Position Sitting Intake Visit Reasons: *EST* NOB LMP 01/28, STEFFANIE 11/04 Chief Complaint: Discuss letrozole Banquet Food Server Required: No Accompanied by: Is patient in pain?: No Allergies No Known Allergies Allergy (Verified 03/25/25 10:58) Medications ???Medication ???Instructions ???Recorded ???Confirmed ???Type PNV 153-FA 400 mcg-om3 35 mg-dha tab PO 03/25/25 03/25/25 History 25 mg-epa 5 mg-fish oil chew tablet Is last menstrual period known: Yes Last menstrual period: 01/28/25 Post menopausal: No Patient : Yes Nurse's Note: Pt here for secondary amenorrhea. Office UPT: positive. Vitals WNL. PNOB questions completed. Problem list, allergies, and medications updated. First trimester ACOG education completed. Nursing Note patient is here for amenorrhea and a test and orientation to our practice. Assessment and Plan Assessment and Plan (1) Amenorrhea: Status: Acute Comment: +UPT Orders: Orders CBC W/Diff, Automated 03/25/25 Z34.90 - Encounter for supervision of normal , unspecified, unspecified trimester Type Screen 03/25/25 Z34.90 - Encounter for supervision of normal , unspecified, unspecified trimester Rubella IgG 03/25/25 Z34.90 - Encounter for supervision of normal , unspecified, unspecified trimester Hepatitis C Antibody 03/25/25 Z34.90 - Encounter for supervision of normal , unspecified, unspecified trimester Hepatitis B Surface Antigen 03/25/25 Z34.90 - Encounter for supervision of normal , unspecified, unspecified trimester Culture, Urine 03/25/25 Z34.90 - Encounter for supervision of normal , unspecified, unspecified trimester Syphilis Antibodies 03/25/25 Z34.90 - Encounter for supervision of normal , unspecified, unspecified trimester Chlamydia/GC RAMÓN aptima 03/25/25 Z34.90 - Encounter for supervision of normal , unspecified, unspecified trimester HIV 03/25/25 Z34.90 - Encounter for supervision of normal , unspecified, unspecified trimester POC Urine 03/25/25 N91.2 - Amenorrhea, unspecified 03/27/252057 Date [facility]: Date (if applicable) CC: Normal [facility] Urine Cultureon 02-28-2025 URC Culture exhibits no growth. Normal [facility] Comment on above: Performed By: #### M 100.2200, L7000.1800 #### [facility] [address] [place], [address] Performed By: #### L 509.8002, L501.0250, L100.0100, L3890.6006 #### [facility] [address] [place], [address] Urgent Care Visit Reporton 0 02-27-2025 Urgent Care Visit Report [facility] [address], [address] [place] [address] OFFICE VISIT Date of Service: 02/27/25 MR#: [id number] Acct: [id number] Name: MARCELA DASH Rep #: [id number] : 2000 Provider: LAITH Palacios Age/Sex: 24/F Location: [facility] [place] Status: Signed Intake Vital Signs 02/12/25 11:47 02/27/25 16:11 Height 5 ft 2 in BP 118/62 Position Sitting Pulse 90 Temp 98.6 F Temp Source Oral Pulse Oximetry (%) 100 Oxygen Delivery Method room air Intake Visit Reasons: POSSIBLE UTI Accompanied by: Self Allergies No Known Allergies Allergy (Verified 02/27/25 16:18) Medications ???Medication ???Instructions ???Recorded ???Confirmed ???Type lorazepam 0.5 mg tablet (Ativan) 0.5 mg PO QDAY PRN anxiety #1 TAB 01/29/25 02/27/25 Rx letrozole 2.5 mg tablet 7.5 mg (3 x 2.5 mg) PO DAILY #15 0 02/11/25 02/27/25 Rx tabs nitrofurantoin 1 cap PO Q12H 7 days #14 caps 02/0702/27/25 Rx monohydrate/macrocrys tals 100 mg capsule Nurse's Note: Patient has concerns for a UTI. Patient has pressure and urgency that has been going on for a day. 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 Patient denies fever, chills, sweats. No nausea, vomiting or diarrhea. No loss of taste or smell. No loss of bowel or bladder control. No other associated symptoms or alleviating/aggravati ng factors. ROS Const Constitutional: No other (6 system ROS completed with pertinent findings in the HPI otherwise normal.) Exam Const General: cooperative and healthy appearing Resp Effort Inspection: normal respiratory effort Auscultation: Bilateral: Clear to Auscultation Cardio Rate: regular rate Rhythm: regular rhythm GI Auscultation: normal bowel sounds General: No CVA tenderness Psych Appearance: grossly normal Mental Status: mental status grossly normal Coding Level of Care Code Off vis,new,level 3 Diagnoses Dysuria R30.0 Assessment and Plan Assessment and Plan (1) Dysuria: Status: Acute Plan: Macrobid as prescribed today. Encouraged to get plenty of rest, drink lots of clear liquids, and use Tylenol (unless contraindicated) for comfort. Patient also educated on other symptomatic management techniques. To be seen in 7-10 days if no improvement; sooner if worsening of symptoms. Patient advised of potential red flags and when appropriate to report to the ED. Patient verbalized understanding and agreement with all the above. Orders: Orders POC Urinalysis Dip (Clinic) Today R39.15 - Urgency of urination Culture, Urine Today R39.15 - Urgency of urination Medications: New nitrofurantoin monohyd/m-cryst 100 mg administer with a meal/food; swallow whole; do not open, crush, dissolve , or chew 1 cap PO Q12H 14 caps 0RF 7 days 02/27/25 1646 Date Al Wardign Signature: Date (if applicable) CC: Normal [facility] Urgent Care Visit Report [facility] [address], [address] [place] [address] OFFICE VISIT Date of Service: 02/27/25 MR#: [id number] Acct: [id number] Name: MARCELA DASH Rep #: [id number] : 2000 Provider: LAITH Palacios Age/Sex: 24/F Location: [facility] Status: Signed Intake Vital Signs 02/12/25 11:47 02/27/25 16:11 Height 5 ft 2 in BP 118/62 Position Sitting Pulse 90 Temp 98.6 F Temp Source Oral Pulse Oximetry (%) 100 Oxygen Delivery Method room air Intake Visit Reasons: POSSIBLE UTI Accompanied by: Self Allergies No Known Allergies Allergy (Verified 02/27/25 16:18) Medications ???Medication ???Instructions ???Recorded ???Confirmed ???Type lorazepam 0.5 mg tablet (Ativan) 0.5 mg PO QDAY PRN anxiety #1 TAB 01/29/25 02/27/25 Rx letrozole 2.5 mg tablet 7.5 mg (3 x 2.5 mg) PO DAILY #15 0 02/11/25 02/27/25 Rx tabs nitrofurantoin 1 cap PO Q12H 7 days #14 caps 02/0702/27/25 Rx monohydrate/macrocrys tals 100 mg capsule Nurse's Note: Patient has concerns for a UTI. Patient has pressure and urgency that has been going on for a day. 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 Patient denies fever, chills, sweats. No nausea, vomiting or diarrhea. No loss of taste or smell. No loss of bowel or bladder control. No other associated symptoms or alleviating/aggravati ng factors. ROS Const Constitutional: No other (6 system ROS completed with pertinent findings in the HPI otherwise normal.) Exam Const General: cooperative and healthy appearing Resp Effort Inspection: normal respiratory effort Auscultation: Bilateral: Clear to Auscultation Cardio Rate: regular rate Rhythm: regular rhythm GI Auscultation: normal bowel sounds General: No CVA tenderness Psych Appearance: grossly normal Mental Status: mental status grossly normal Coding Level of Care Code Off vis,new,level 3 Diagnoses Dysuria R30.0 Assessment and Plan Assessment and Plan (1) Dysuria: Status: Acute Plan: Macrobid as prescribed today. Encouraged to get plenty of rest, drink lots of clear liquids, and use Tylenol (unless contraindicated) for comfort. Patient also educated on other symptomatic management techniques. To be seen in 7-10 days if no improvement; sooner if worsening of symptoms. Patient advised of potential red flags and when appropriate to report to the ED. Patient verbalized understanding and agreement with all the above. Orders: Orders POC Urinalysis Dip (Clinic) Today R39.15 - Urgency of urination Culture, Urine Today R39.15 - Urgency of urination Medications: New nitrofurantoin monohyd/m-cryst 100 mg administer with a meal/food; swallow whole; do not open, crush, dissolve , or chew 1 cap PO Q12H 14 caps 0RF 7 days 02/27/25 1646 Date Al Dai Signature: Date (if applicable) CC: Normal [facility] Urine cultureOrdered By: Reymundo Corado on 02-27-2025 Bacteria identified Cx Nom (U) Culture exhibits no growth. 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 Office Visit Reporton 02-12-2025 Clothing Pattern Preparer Office Visit Report [facility] [address] [place] [address], [address] [place] [address] OFFICE VISIT Date of Service: 02/12/25 MR#: [id number] Acct: [id number] Name: MARCELA ZAMARRIPA Rep #: [id number] : 2000 Provider: HAYDEN tapia Age/Sex: 24/F [place] [facility] [place]: Signed Intake Vital Signs 11/21/24 11:06 02/04/25 11:30 02/12/25 11:44 02/12/25 11:47 Height 5 ft 2 in 5 ft 2 in 5 ft 2 in 5 ft 2 in Weight: 136 lb BMI 24.8 BP 110/70 Intake Visit Reasons: Discuss Letrozole *copay $20 Chief Complaint: Discuss letrozole Banquet Food Server Required: No Is patient in pain?: No Allergies No Known Allergies Allergy (Verified 02/12/25 11:44) Medications ???Medication ???Instructions ???Recorded ???Confirmed ???Type lorazepam 0.5 mg tablet (Ativan) 0.5 mg PO QDAY PRN anxiety #1 TAB 01/29/25 02/12/25 Rx letrozole 2.5 mg tablet 7.5 mg (3 x 2.5 mg) PO DAILY #15 0 02/11/25 02/12/25 Rx tabs Is last menstrual period known: Yes Last Menstrual Period: 01/28/25 Post menopausal: No Patient : No : No [facility] Medical History Ovarian cyst UTI (urinary tract infection) Urinary frequency Surgical History No pertinent past surgical history Family History Grandfather Diabetes Heart disease Grandmother Breast cancer, Onset Age: 60 Mother Hypertension Father Hypertension Social History adopted: No household members: spouse and other details: dog housing: house number of children: 0 current occupational status: employed 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 So far she has had normal day 3 and 21 labs, has done letrozole up to 7.5mg. Normal HSG. Spouse normal SA. She had bad experience with [facility]. Female Reproductive History Last Menstrual Period: 01/28/25 History 0 Elective abortions Hx Para Spontaneous abortions Hx # Term Pregnancies Ectopic pregnancies Hx # Pregnancies Multiple births # of living children ROS Const Constitutional: Reports system reviewed and no additional complaints, except as documented Eyes Eyes: Reports system reviewed and no additional complaints, except as documented GI GI: Denies abdominal pain or change in bowel habits : Reports as per HPI Exam Const General: cooperative and no acute distress Orientation: oriented x3 HENMT Head: normal to inspection and normocephalic Eyes General: appearance normal, both eyes and all related structures Neck Neck: normal visual inspection Resp Effort Inspection: normal respiratory effort Neuro Cognition: normal cognition Speech: speech normal Psych Appearance: grossly normal Mood: congruent mood Affect: normal affect Speech and Movement: speech and movement normal Attitude: cooperative Judgment: judgment good Coding Level of Care Code Off vis,est,level 2 Diagnoses Infertility associated with anovulation N97.0 PCOS (polycystic ovarian syndrome) E28.2 Assessment and Plan Assessment and Plan (1) Infertility associated with anovulation: Status: Acute Comment: day 21(+ovulation) and 3 labs(normal), SA for partner(nl). letrozole 2nd cycle 7.5mg. HSG normal.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 nourished and well developed Constitutional Narrative: GCS 15. General Appearance ED: well developed and NAD HEENT Reports moist mucous membranes normocephalic and atraumatic Eyes General Eye ED: Yes normal appearance of both eyes Neck full ROM Neck Narrative: No midline tenderness of the cervical spine. Paracervical tenderness. Chest Wall Chest Narrative: Slight tenderness mid clavicle no deformities no crepitus. No sternal tenderness. Chest: tenderness Resp normal respiratory effort and normal air movement Resp Narrative: Symmetric breath sounds bilaterally. Effort and Inspection: symmetric chest movement; Negative for respiratory distress Cardio regular rate, regular rhythm and no murmurs Peripheral Pulses: pulses 2+ throughout GI normal to inspection, nondistended, normoactive bowel sounds and non-tender Palpation: Negative for guarding or rebound tenderness present Back/Spine Back/Spine Narrative: No midline thoracic or lumbar tenderness. Extremity normal to inspection Extremity Narrative: Negative logroll of the lower extremities full range of motion of the knee ankle without any tenderness. Pulses intact distally. General Extremety ED: Negative for edema or tenderness General Extremity: Negative for edema Neuro oriented x3, CN's II-XII intact bilaterally and no sensory deficits noted Sensorium / [place] (more content not included)... Normal [facility] PROGESTERONE 4317on 10-23-19 25 PROGESTERONE 0.8 ng/mL Normal . [facility] Comment on above: Order Comment: Nday 21 progesterone Result Comment: Foll icular phase 0.1 - 0.9 Luteal phase 1.8 - 23.9 Ovulation phase 0.1 - 12.0 First trimester 11.0 - 44.3 Second trimester 25.4 - 83.3 Third trimester 58.7 - 214.0 Postmenopausal 0.0 - 0.1 Performed at: [facility] [address] [id number] [place] Commissioner: Robert Aguiar PhD, Phone: [phone] Performed By: #### L [id number] ####[facility] [id number] [place], [place], [id number] Order Comment: N Performed By: #### L [id number] #### [facility] [address] [place], [place], [id number] Quantitative serum progester one measurement by electrochemiluminescence immunoassay (Ordered By: Katy Mcneil on 10-22-2024 Progesterone Level 0.8 ng/mL . [facility] Comment on above: Follicular phase 0.1 - 0.9 Luteal phase 1.8 - 23.9 Ovulation phase 0.1 - 12.0 First trimester 11.0 - 44.3 Second trimester 25.4 - 83.3 Third trimester 58.7 - 214.0 Postmenopausal 0.0 - 0.1Performed at: [facility] [id number] Director: Robert Aguiar PhD, Phone: [phone] Internal Medicine Office Vis yong 09-24-2024 Internal Medicine Office Visit [facility] [address] [place] [address] [address] [place], [place] [address] OFFICE VISIT Date of Service: 09/25/24 MR#: [id number] Acct: [id number] Name: MARCELA DASH Rep #: [id number] : 2000 Provider: Dr. 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 EST CARE - [facility] PT/CONSENT ONLY Chief Complaint: est care Banquet Food Server Required: No Accompanied by: Self Is patient in pain?: No Allergies No Known Allergies Allergy (Unverified 09/25/24 08:57) Medications ???Medication ???Instructions ???Recorded ???Confirmed ???Type vitamin-ferrous fumarate 1 tab PO DAILY 05/15/24 09/25/24 History 28 mg iron-folic acid 800 mcg tablet letrozole 2.5 mg tablet 2.5 mg PO DAILY #5 tabs 08/28/24 09/25/24 Rx [facility] Medical History Ovarian cyst UTI (urinary tract infection) Urinary frequency Surgical History (Updated 09/25/24 @ 09:[address] Tereza Lynch MD) No pertinent past surgical history Family History Grandfather Diabetes Heart disease Grandmother Breast cancer, Onset Age: 60 Mother Hypertension Father Hypertension Social History (Updated 09/25/24 @ 09:[address] 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 She hasn't had a PCP before. She is not due for any routine blood work. She is up to date on her screening. She doesn't want any immunizations. She doesn't smoke and doesn't need any refills. She reports she is eating healthy and staying active. The patient is following with OBGYN for her fertility and is trying to get . She has no questions or concerns at this time. Medications reviewed: Yes BUCKDA Marcela likes to exercises by pilates. They watch their diet for sodium, low fat, and low cholesterol most of the time. List of current specialists seen: OBGYN End of life planning discussed including patient's advanced directive wishes: Discussed. Patient doesn't have one in place. I am willing to follow Marcela's advanced directives PHQ-2/Depression screen They in the past two weeks denies having felt down, depressed, hopeless or with little interest or pleasure in doing things. Hearing evaluation: Normal ROS Const Constitutional: Positive for headache(s); No body ache, chills, excessive sweating, fatigue, fever(s), frequent falls, snoring, weakness, weight change or change in appetite Eyes Eyes: Positive for change in vision; No blurry vision, eye pain or Light sensitivity ENT ENT: Positive for headache(s); No abnormal hearing, ear or mastoid pain, tinnitus, nasal congestion, neck pain or sore throat Resp Respiratory: No cough, shortness of breath, snoring or wheezing Cardio Cardiology: Positive for lightheadedness (occasional with menstrual period); No chest pain at rest, chest pain with exertion, excessive sweating, dyspnea on exertion, orthopnea, palpitations or other (no leg swelling) Gastro GI: Positive for abdominal pain (with ovarian cysts); No change in bowel habits, constipation, cramping, diarrhea, nausea/dyspepsia or vomiting Genitourinary-Female: Positive for abnormal periods; No difficulty urinating, burning urination, painful urination, urinary incontinence or urinary frequency Musc Musculoskeletal: No abnormal gait, joint pain, back pain, limited range of motion, muscle weakness, neck pain, numbness or tingling Skin Skin: No dry skin, redness, lesions, itchy eyes, rash or wounds Neuro Neurology: Positive for headache(s); No abnormal gait, abnormal hearing, dizziness, weakness, frequent falls, memory loss, numbness, tingling or fainting Psych Psychiatric: No anxiety, No change in appetite, No depression, No me (more content not included)... Normal [facility] Internal Medicine Office Visit [facility] [address] [place] [address] OFFICE VISIT Date of Service: 09/25/24 MR#: [id number] Acct: [id number] Name: MARCELA DASH Rep #: [id number] : 2000 Provider: Dr. 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 EST CARE - [facility] PT/CONSENT ONLY Chief Complaint: est care Banquet Food Server Required: No Accompanied by: Self Is patient in pain?: No Allergies No Known Allergies Allergy (Unverified 09/25/24 08:57) Medications ???Medication ???Instructions ???Recorded ???Confirmed ???Type vitamin-ferrous fumarate 1 tab PO DAILY 05/15/24 09/25/24 History 28 mg iron-folic acid 800 mcg tablet letrozole 2.5 mg tablet 2.5 mg PO DAILY #5 tabs 08/28/24 09/25/24 Rx [facility] Medical History Ovarian cyst UTI (urinary tract infection) Urinary frequency Surgical History (Updated 09/25/24 @ 09:[address] Tereza Lynch MD) No pertinent past surgical history Family History Grandfather Diabetes Heart disease Grandmother Breast cancer, Onset Age: 60 Mother Hypertension Father Hypertension Social History (Updated 09/25/24 @ 09:[address] 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 She hasn't had a PCP before. She is not due for any routine blood work. She is up to date on her screening. She doesn't want any immunizations. She doesn't smoke and doesn't need any refills. She reports she is eating healthy and staying active. The patient is following with OBGYN for her fertility and is trying to get . She has no questions or concerns at this time. Medications reviewed: Yes KARIE Medrano likes to exercises by sveta. They watch their diet for sodium, low fat, and low cholesterol most of the time. List of current specialists seen: OBGYN End of life planning discussed including patient's advanced directive wishes: Discussed. Patient doesn't have one in place. I am willing to follow Marcela's advanced directives PHQ-2/Depression screen They in the past two weeks denies having felt down, depressed, hopeless or with little interest or pleasure in doing things. Hearing evaluation: Normal ROS Const Constitutional: Positive for headache(s); No body ache, chills, excessive sweating, fatigue, fever(s), frequent falls, snoring, weakness, weight change or change in appetite Eyes Eyes: Positive for change in vision; No blurry vision, eye pain or Light sensitivity ENT ENT: Positive for headache(s); No abnormal hearing, ear or mastoid pain, tinnitus, nasal congestion, neck pain or sore throat Resp Respiratory: No cough, shortness of breath, snoring or wheezing Cardio Cardiology: Positive for lightheadedness (occasional with menstrual period); No chest pain at rest, chest pain with exertion, excessive sweating, dyspnea on exertion, orthopnea, palpitations or other (no leg swelling) Gastro GI: Positive for abdominal pain (with ovarian cysts); No change in bowel habits, constipation, cramping, diarrhea, nausea/dyspepsia or vomiting Genitourinary-Female: Positive for abnormal periods; No difficulty urinating, burning urination, painful urination, urinary incontinence or urinary frequency Musc Musculoskeletal: No abnormal gait, joint pain, back pain, limited range of motion, muscle weakness, neck pain, numbness or tingling Skin Skin: No dry skin, redness, lesions, itchy eyes, rash or wounds Neuro Neurology: Positive for headache(s); No abnormal gait, abnormal hearing, dizziness, weakness, frequent falls, memory loss, numbness, tingling or fainting Psych Psychiatric: No anxiety, No change in appetite, No depression, No me (more content not included)... Normal [facility] PROGESTERONE 4317on 12-16-20 24 PROGESTERONE 0.4 ng/mL Normal . [facility] Comment on above: Order Comment: NDay 21 Result Comment: Foll icular phase 0.1 - 0.9 Luteal phase 1.8 - 23.9 Ovulation phase 0.1 - 12.0 First trimester 11.0 - 44.3 Second trimester 25.4 - 83.3 Third trimester 58.7 - 214.0 Postmenopausal 0.0 - 0.1 Performed at: [facility] [address] [place], [place] [id number] [place] Commissioner: Robert Aguiar PhD, Phone: [phone] Performed By: #### L [id number] ####[facility] [id number] [place], [place], [id number] Order Comment: N Performed By: #### L [phone] #### [facility] [address] [place], [address] Quantitative serum progester one measurement by electrochemiluminescence immunoassay (Ordered By: Katy Mcneil on 09-20-2024 Progesterone Level 0.4 ng/mL . [facility] Comment on above: Follicular phase 0.1 - 0.9 Luteal phase 1.8 - 23.9 Ovulation phase 0.1 - 12.0 First trimester 11.0 - 44.3 Second trimester 25.4 - 83.3 Third trimester 58.7 - 214.0 Postmenopausal 0.0 - 0.1Performed at: [facility] [place], [place] [id number] Director: Robert Aguiar PhD, Phone: [phone] [id number] 06-28-2024 REPROSOURCE SEE SCANNED REPORT Normal [facility] Comment on above: Performed By: #### M 100.2200, L7000.1800 #### [facility] [address] [place], [address] Basophil percentageOrdered B y: Antonio Sharpe on 10-17-2023 Basophil percentage 0-5 SEEN /hpf 0-5 [facility] Bilirubin Test strip Ql (U)O rdered By: Antonio Sharpe on 10-17-2023 Bilirubin Ql (U) 3 mg/dL Negative [facility] Comment on above: COLOR OF URINE MAY A FFECT DIPSTICK RESULTS. Culture, urineOrdered By: St seth Sharpe on 10-17-2023 Bacteria identified Cx Nom (U) Presumptive E. coli [facility] Ketones Test strip Ql (U)Ord ered By: Antonio Sharpe on 10-17-2023 Ketones Ql (U) 15 mg/dl Negative [facility] - Chemistry and C hemistry - challengeon 10-17-2023 HCG ( test) Ql (U) Negative [facility] Bilirubin Ql (U) Negative [facility] Glucose Ql (U) Negative [facility] Ketones Ql (U) Negative [facility] pH (U) 6.0 [pH] [facility] Specific gravity (U) [Rel density] 1.020 [facility] Urobilinogen (U) [Mass/Vol] Negative [facility] - Hematology and Cell countson 10-17-2023 Hemoglobin Ql (U) Negative [facility] - Specimen inform ationon 10-17-2023 Clarity (U) Clear [facility] Color (U) ORANGE [facility] - Urinalysison Nitrite Ql (U) Negative [facility] Protein Ql (U) Negative [facility] Mucus LM Ql (Urine sed)Order ed By: Antonio Sharpe on 10-17-2023 Mucus Ql (Urine sed) 2+ /hpf [facility] Nitrite Test strip Ql (U)Ord ered By: Antonio Sharpe on 10-17-2023 Nitrite Ql (U) Positive Negative [facility] No Panel Informationon 10-17 Urine Leukocytes Negatve [facility] Urine Non-Hemolyzed Blood Negative [facility] Protein Test strip Ql (U)Ord ered By: Antonio Sharpe on 10-17-2023 Protein Ql (U) 15 mg/dl Negative [facility] Squamous epithelial cells de tection in urine sediment by light microscopyOrdered By: Antonio Sharpe on 10-17-2023 Epithelial cells.squamous LM Ql (Urine sed) 0-5 SEEN /hpf 5-10 [facility] Urine blood detectionOrdered By: Antonio Sharpe on 10-17-2023 RBC Ql (U) Negative Negative [facility] RBC Ql (U) 0 SEEN /hpf 0-5 [facility] Urine clarityOrdered By: Nitesh Sharpe on 10-17-2023 Clarity (U) Clear Clear [facility] Urine color determinationOrd ered By: Antonio Sharpe on 10-17-2023 Color (U) Yellow Yellow [facility] Urine glucose detectionOrder ed By: Antonio Sharpe on 10-17-2023 Glucose Ql (U) Normal mg/dl Normal [facility] Urine leukocyte esterase det ection by dipstickOrdered By: Antonio Sharpe on 10-17-2023 Leukocyte esterase Test strip Ql (U) 25 /ul Negative [facility] Urine pHOrdered By: Antonio beard on 10-17-2023 pH (U) 6.0 [pH] 5.0 - 8.0 [facility] Urine sediment bacteria coun t by microscopy (number/high power field)Ordered By: Antonio Sharpe on 10-17-2023 Bacteria LM.HPF (Urine sed) [#/Area] 1 /[HPF] None Seen [facility] Urine specific gravity measu rementOrdered By: Antonio Sharpe on 10-17-2023 Specific gravity (U) [Rel density] 1.020 1.002-1.030 [facility] Urobilinogen Auto test strip Ql (U)Ordered By: Antonio Sharpe on 10-17-2023 Urobilinogen Ql (U) 4 mg/dl Normal [facility] POCT URINALYSIS DIPSTICKon 0 06-10-2022 BILIRUBIN, POC Negative Normal Negative [facility] Comment on above: Performed By: #### P OC5 #### [place] [address] BLOOD URINE, POC Negative Normal Negative [facility] Comment on above: Performed By: #### P OC5 #### [place] [address] CLARITY, POC Clear Normal [facility] Comment on above: Performed By: #### P OC5 #### [address] [address] COLOR, POC Yellow Normal [facility] Comment on above: Performed By: #### P OC5 #### [place] [address] GLUCOSE URINE, POC Negative Normal Negative [facility] Comment on above: Performed By: #### P OC5 #### [address] [address] LEUKOCYTE EST, POC Trace Abnormal Negative [facility] Comment on above: Performed By: #### P OC5 #### [address] [address] NITRITE, POC Negative Normal Negative [facility] Comment on above: Performed By: #### P OC5 #### [address] [address] PH, POC 6.5 Normal [facility] Comment on above: Performed By: #### P OC5 #### [address] [address] PROTEIN, POC Negative Normal Negative [facility] Comment on above: Performed By: #### P OC5 #### [address] [address] SPECIFIC GRAVITY, POC 1.020 Normal [facility] Comment on above: Performed By: #### P OC5 #### [address] [address] URINE KETONES, POC Negative Normal Negative [facility] Comment on above: Performed By: #### P OC5 #### [address] [address] UROBILINOGEN, POC 0.2 Normal 0.2-1.0 [facility] Comment on above: Performed By: #### P OC5 #### [address] [address] Urinalysis macro (dipstick) panel (U)on 06-10-2022 Bilirubin, UA Negative Negative [facility] Blood, UA Negative Negative [facility] Clarity, UA Clear [facility] Color, UA Yellow [facility] Glucose, UA Negative Negative [facility] Interpretation and review of laboratory results Abnormal [facility] Ketones (U) [Mass/Vol] Negative Negative [facility] Leukocytes, UA Trace Abnormal Negative [facility] Nitrite, UA Negative Negative [facility] pH, UA 6.5 [facility] Protein, UA Negative Negative [facility] Spec Grav, UA 1.020 [facility] Urobilinogen, UA 0.2 0.2 - 1.0 [facility] HEPATITIS B SURFACE ANTIBODY on 12-13-2021 HEPATITIS B VIRUS SURFACE AB PRESENCE IN SERUM Non-Reactive Abnormal Reactive [facility] Comment on above: Result Comment: REFERENCE RANGE: NONREACTIVE: Patient is considered not immune to infection with HBV. REACTIVE: Patient is considered to be immune to infection with HBV. Performed By: #### L [id number] #### [facility] [address] [place] [address] RUBELLA ANTIBODY, IGGon RUBELLA IGG SCREEN Reactive Normal [facility] Comment on above: Result Comment: *Non-Reactive: Antibody level may be insufficient to provide protection against Rubella virus infection. *Indeterminate: Repeat testing in 1-2 weeks may help clarify. *Reactive: Indicates current or past infection or vaccination. Performed By: #### L [id number] #### [facility] [address] [place] [address] OBSOLETEon 07-18-2021 OBSOLETE Refill (OBGYWM) MARCELA ZAMARRIPA ([id number]) 1 F Date Time Provider Department 07/18/21 LAURITA PETERS During your visit today, we recorded the following information about you: Allergies As of Date: 07/18/2021 (No Known Allergies) Date Reviewed: 05/25/2021 Reviewed by: Laurita Peters APRN.DIRECTOR IMAGING - Fully Assessed Reason for Visit: Refill Request [94] Visit Diagnosis:Encounter for surveillance of contraceptive pills [Z30.41] Prescriptions as of 07/19/2021 - Desogestrel-Ethinyl Estradiol (APRI) 0.15-0.03 mg per tablet Take 1 tablet by mouth once daily. Problem List As Of Date 07/18/2021 Noted Resolved Gastroesophageal reflux disease without esophag*01/09/2017 Acne vulgaris [L70.0] 01/09/2017 Encounter Status:Closed by LATOYA MARTINES RN on 07/19/21 [facility] CNOVon 05-25-2021 CNOV Office Visit (OBGYWM ) MARCELA ZAMARRIPA Pramod ([id number]) 1 F Date Time Provider Department 05/25/21 1:00 PM LAURITA PETERS During your visit today, we recorded the following information about you: Blood pressure Weight Height Last Period 54.4 kg 1.588 m 05/06/21 Laurita Peters APRN.DIRECTOR IMAGING 05/25/2021 1:43 PM Signed Marcela is a 20 year old who presents for an annual gynecologic exam without complaints. Getting and graduating from [employer] for ultrasound - both in February. Presents: with parent Menses: cycles every 28 days and 2-3 days of flow. Contraception: combined hormonal contraceptives HPV vaccine: No Last pap smear: never Sexually active: Never OB History T0 L0 SAB0 TAB0 Ectopic0 Multiple0 Live Births0 PAST MEDICAL HISTORY Diagnosis Date - Acid reflux - acne PAST SURGICAL HISTORY Procedure Laterality Date - NONE FAMILY HISTORY Problem Relation Age of Onset - Asthma Brother - Allergies Brother - Hypertension Mother - Hyperlipidemia Mother - Hypertension Father - other (Gastric Ulcer) Father - other (Reflux) Father - Hypertension Maternal Grandmother - Hypertension Maternal Grandfather - Diabetes Paternal Grandmother - GI Paternal Grandmother - Breast Cancer Paternal Grandmother 65 - Diabetes Paternal Grandfather - Heart Paternal Grandfather [place] - No Known Problems Sister - Asthma Brother - Allergies Brother SOCIAL HISTORY Social History Tobacco Use - Smoking status: Never Smoker - Smokeless tobacco: Never Used Vaping Use - Vaping Use: Never used Substance Use Topics - Alcohol use: No - Drug use: No REVIEW OF SYSTEMS Abdomen: No bloating, early satiety, indigestion, or increased flatulence. No abdominal pain, nausea, vomiting, diarrhea, or constipation. Bladder: No dysuria, gross hematuria, urinary frequency, urinary urgency, or incontinence. Breast: No breast lumps, nipple d/c, overlying skin changes, redness or skin retraction. Allergies and current medication updated:Yes EXAM: BP 116/68 Ht 5' 2.5 (1.59m) Wt 120 lb (54.4kg) LMP 05/06/2021 BMI 21.59 kg/(m2). GENERAL: pleasant, in no apparent distress HEENT: Normocephalic, atraumatic, mucus membranes moist and no lesions NECK: Supple, full range of motion, no adenopathy and thyroid normal DERMATOLOGY: Normal, without lesions, non-icteric and non-hirsute BREAST: deferred CHEST: Normal inspiratory effort ABDOMEN: soft and non-tender PELVIC: deferred BIMANUAL: deferred NEURO: alert and oriented x3,exam grossly non-focal EXTREMITIES: normal ASSESSMENT/PLAN: 1) Health maintenance: Pap starting at the age of 21. Safe sex practices reviewed. Nutrition, exercise, and routine health maintenance exams reviewed. HPV vaccine discussed and declined. 2) Contraception: combined hormonal contraceptives. Contraceptive options reviewed and information provided. 3) STD screening: Declined STD check. 4) Follow up one year or sooner as needed. Laurita Peters APRN.DONNIE Referring Provider: SELF [200] Allergies As of Date: 05/25/2021 (No Known Allergies) Date Reviewed: 05/25/2021 Reviewed by: Laurita Peters APRN.DIRECTOR IMAGING - Fully Assessed Reason for Visit: Yearly Exam [187] Primary Visit Diagnosis:Encounter for gynecological examination (general) (routine) without abnormal findings [Z01.419] Other Visit Diagnosis:Encounter for surveillance of contraceptive pills [Z30.41] Order(s):Desogestrel- Ethinyl Estradiol (APRI) 0.15-0.03 mg per tabletTake 1 tablet by mouth once daily.Disp: 3 PackageRfl: 3 Prescriptions as of 05/25/2021 - Desogestrel-Ethinyl Estradiol (APRI) 0.15-0.03 mg per tablet Take 1 tablet by mouth once daily. Problem List As Of Date 05/25/2021 Noted Resolved Gastroesophageal reflux disease without esophag*01/09/2017 Acne vulgaris [L70.0] 01/09/2017 Prescriptions ordered this encounter Disp Refills Start End DESOGESTREL 0.15 MG-ETHINYL ESTRADIO* 3 Pa* 3 05/25/2021 Route: ORAL Sig: Take 1 tablet by mouth once daily. Medications Discontinued During This Encounter Prescriptions - APRI 0.15-0.03 mg per tablet (Discontinued) TAKE 1 TABLET BY MOUTH EVERY DAY Disposition: Return in 1 year (on 05/25/2022) for Annual Exam. Follow-up and Disposition History Recorded Encounter Status:Closed by LAURITA PETERS on 05/25/21 [facility] OBSOLETEon 03-02-2021 OBSOLETE Refill (WOOB) MARCELA ZAMARRIPA ([id number]) 1 F Date Time Provider Department 03/02/21 LAURITA PETERS During your visit today, we recorded the following information about you: Latoya Martines RN 03/02/2021 8:27 AM Signed Patient cancelled her January annual exam. PSS- Please contact patient to assist with rescheduling. Pending Prescriptions Disp Refills APRI 0.15 MG-0.03 MG TABLET 56 tablet 0 Sig: TAKE 1 TABLET BY MOUTH EVERY DAY YUKI: Yes Last annual exam: 09/12/19 Please approve the above prescription(s) to electronically send to pharmacy. Latoya Jack 03/04/2021 2:22 PM Signed 1st attempt: could not leave msg for pt (on mobile) but left msg with Mom at home to have her call and schedule appt. Allergies As of Date: 03/02/2021 (No Known Allergies) Date Reviewed: 09/19/2019 Reviewed by: Elyssa Galicia) EFREN Barahona - Fully Assessed Reason for Visit: Refill Request [94] Visit Diagnoses:Encounter for surveillance of contraceptive pills [Z30.41] Irregular menses [N92.6] Order(s):APRI 0.15-0.03 mg per tabletTAKE 1 TABLET BY MOUTH EVERY DAYDisp: 56 tabletRfl: 0 Prescriptions as of 03/02/2021 Sig: APRI 0.15 MG-0.03 MG TABLET TAKE 1 TABLET BY MOUTH EVERY * Problem List As Of Date 03/02/2021 Noted Resolved Gastroesophageal reflux disease without esophag*01/09/2017 Acne vulgaris [L70.0] 01/09/2017 Prescriptions ordered this encounter Disp Refills Start End APRI 0.15 MG-0.03 MG TABLET 56 t* 0 03/02/2021 Sig: TAKE 1 TABLET BY MOUTH EVERY DAY Medications Discontinued During This Encounter Prescriptions - APRI 0.15-0.03 mg per tablet (Discontinued) TAKE 1 TABLET BY MOUTH EVERY DAY Encounter Status:Closed by TAMAR JACK on 03/04/21 [facility] OBSOLETEon 01-07-2021 OBSOLETE Refill (WOOB) MARCELA ZAMARRIPA ([id number]) 1 F Date Time Provider Department 01/07/21 ELIANA BEJARANO (DONNIE) WOOB During your visit today, we recorded the following information about you: Latoya Martines RN 01/07/2021 8:20 AM Signed Received refill request. Last extension given 11/16/20. PSS- Please attempt to reach patient to schedule annual exam. Thank you. Pending Prescriptions Disp Refills APRI 0.15 MG-0.03 MG TABLET 56 tablet 0 Sig: TAKE 1 TABLET BY MOUTH EVERY DAY YUKI: Yes Last annual exam: 09/12/19 Please approve the above prescription(s) to electronically send to pharmacy. Latoya Alfaro 01/17/2021 10:02 AM Signed Patient is scheduled 01/20 for her annual [employer]. Verona Alfaro Allergies As of Date: 01/07/2021 (No Known Allergies) Date Reviewed: 09/19/2019 Reviewed by: Elyssa Galicia) EFREN Barahona - Fully Assessed Reason for Visit: Refill Request [94] Visit Diagnoses:Encounter for surveillance of contraceptive pills [Z30.41] Irregular menses [N92.6] Order(s):APRI 0.15-0.03 mg per tabletTAKE 1 TABLET BY MOUTH EVERY DAYDisp: 56 tabletRfl: 0 Prescriptions as of 01/07/2021 Sig: APRI 0.15 MG-0.03 MG TABLET TAKE 1 TABLET BY MOUTH EVERY * Problem List As Of Date 01/07/2021 Noted Resolved Gastroesophageal reflux disease without esophag*01/09/2017 Acne vulgaris [L70.0] 01/09/2017 Prescriptions ordered this encounter Disp Refills Start End APRI 0.15 MG-0.03 MG TABLET 56 t* 0 01/07/2021 Sig: TAKE 1 TABLET BY MOUTH EVERY DAY Medications Discontinued During This Encounter Prescriptions - APRI 0.15-0.03 mg per tablet (Discontinued) TAKE 1 TABLET BY MOUTH EVERY DAY Encounter Status:Closed by VERONA REEVES on 01/17/21 Normal [facility] Vital Signs Date Time Vital Sign Value Performing Clinician Dusty trivedi 08-14-2025 10:24-0500 Body height 157.[address] Tereza Lynch MD Work Phone: [facility] 08-14-2025 10:24-0500 Body mass index (BMI) [Ratio] 27.6 kg/m2 Dr. Tereza Lynch MD Work Phone: [facility] 08-14-2025 10:24-0500 Body weight 68.[address] Tereza Lynch MD Work Phone: [facility] 08-14-2025 10:24-0500 Diastolic blood pressure 79 mm[Hg] Dr. Tereza Lynch MD Work Phone: [facility] 08-14-2025 10:24-0500 Systolic blood pressure 116 mm[Hg] Dr. Tereza Lynch MD Work Phone: [facility] 08-13-2025 09:24-0500 Body weight 69.[address] Tereza Lynch MD Work Phone: [facility] 07-30-2025 09:36-0400 Body mass index (BMI) [Ratio] 28 kg/m2 Dr. Tereza Lynch MD Work Phone: [facility] 07-30-2025 09:36-0400 Body weight 69.[address] Tereza Lynch MD Work Phone: [facility] 07-30-2025 09:36-0400 Diastolic blood pressure 78 mm[Hg] Dr. Tereza Lynch MD Work Phone: [facility] 07-30-2025 09:36-0400 Systolic blood pressure 114 mm[Hg] Dr. Tereza Lynch MD Work Phone: [facility] 07-02-2025 13:49-0400 Body height 157.[address] Tereza Lynch MD Work Phone: [facility] 07-02-2025 13:49-0400 Body mass index (BMI) [Ratio] 26.9 kg/m2 Dr. Tereza Lynch MD Work Phone: [facility] 07-02-2025 13:49-0400 Body weight 66.[address] Tereza Lynch MD Work Phone: [facility] 07-02-2025 13:49-0400 Diastolic blood pressure 72 mm[Hg] Dr. Tereza Lynch MD Work Phone: [facility] 07-02-2025 13:49-0400 Systolic blood pressure 119 mm[Hg] Dr. Tereza Lynch MD Work Phone: [facility] 06-23-2025 08:52-0400 Body height 157.[address] Tereza Lynch MD Work Phone: [facility] 06-23-2025 08:41-0400 Body mass index (BMI) [Ratio] 26 kg/m2 Dr. Tereza Lynch MD Work Phone: [facility] 06-23-2025 08:41-0400 Body weight 64.[address] Tereza Lynch MD Work Phone: [facility] 06-23-2025 08:41-0400 Diastolic blood pressure 77 mm[Hg] Dr. Tereza Lynch MD Work Phone: [facility] 06-23-2025 08:41-0400 Heart rate 100 /min Dr. Tereza Lynch MD Work Phone: [facility] 06-23-2025 08:41-0400 Systolic blood pressure 130 mm[Hg] Dr. Tereza Lynch MD Work Phone: [facility] 06-04-2025 13:01-0400 Body height 157.[address] Tereza Lynch MD Work Phone: [facility] 06-04-2025 13:01-0400 Body mass index (BMI) [Ratio] 26 kg/m2 Dr. Tereza Lynch MD Work Phone: [facility] 06-04-2025 13:01-0400 Body weight 64.[address] Tereza Lynch MD Work Phone: [facility] 06-04-2025 13:01-0400 Diastolic blood pressure 78 mm[Hg] Dr. Tereza Lynch MD Work Phone: [facility] 06-04-2025 13:01-0400 Systolic blood pressure 126 mm[Hg] Dr. Tereza Lynch MD Work Phone: [facility] 05-07-2025 10:52-0400 Body height 157.[address] Tereza Lynch MD Work Phone: [facility] 05-07-2025 10:52-0400 Body mass index (BMI) [Ratio] 24.7 kg/m2 Dr. Tereza Lynch MD Work Phone: [facility] 05-07-2025 10:52-0400 Body weight 61.[address] Tereza Lynch MD Work Phone: [facility] 05-07-2025 10:52-0400 Diastolic blood pressure 73 mm[Hg] Dr. Tereza Lynch MD Work Phone: [facility] 05-07-2025 10:52-0400 Systolic blood pressure 111 mm[Hg] Dr. Tereza Lynch MD Work Phone: [facility] 04-07-2025 13:07-0400 Body height 157.[address] Tereza Lynch MD Work Phone: [facility] 04-07-2025 13:05-0400 Body mass index (BMI) [Ratio] 25.1 kg/m2 Dr. Tereza Lynch MD Work Phone: [facility] 04-07-2025 13:05-0400 Body weight 62.[address] Tereza Lynch MD Work Phone: [facility] 04-07-2025 13:05-0400 Diastolic blood pressure 75 mm[Hg] Dr. Tereza Lynch MD Work Phone: [facility] 04-07-2025 13:05-0400 Systolic blood pressure 123 mm[Hg] Dr. Tereza Lynch MD Work Phone: [facility] 04-03-2025 08:40-0400 Body height 157.[address] Tereza Lynch MD Work Phone: [facility] 04-03-2025 08:38-0400 Body mass index (BMI) [Ratio] 24.9 kg/m2 Dr. Tereza Lynch MD Work Phone: [facility] 04-03-2025 08:38-0400 Body weight 61.[address] Tereza Lynch MD Work Phone: [facility] 04-03-2025 08:38-0400 Diastolic blood pressure 83 mm[Hg] Dr. Tereza Lynch MD Work Phone: [facility] 04-03-2025 08:38-0400 Systolic blood pressure 133 mm[Hg] Dr. Tereza Lynch MD Work Phone: [facility] 02-27-2025 16:11-0400 Body temperature 98.6 [degF] Dr. Darron Soriano Work Phone: [facility] 02-27-2025 16:11-0400 Diastolic blood pressure 62 mm[Hg] Dr. Darron Soriano Work Phone: [facility] 02-27-2025 16:11-0400 Heart rate 90 /min Dr. Darron Soriano Work Phone: [facility] 02-27-2025 16:11-0400 SaO2% (BldA) [Mass fraction] 100 % Dr. Darron Soriano Work Phone: [facility] 02-27-2025 16:11-0400 Systolic blood pressure 118 mm[Hg] Dr. Darron Soriano Work Phone: [facility] 02-12-2025 11:47-0400 Body height 157.48 cm No Primary Care Physician [facility] 02-12-2025 11:44-0400 Body mass index (BMI) [Ratio] 24.8 kg/m2 No Primary Care Physician [facility] 02-12-2025 11:44-0400 Body weight 61.68 kg No Primary Care Physician [facility] 02-12-2025 11:44-0400 Diastolic blood pressure 70 mm[Hg] No Primary Care Physician [facility] 02-12-2025 11:44-0400 Systolic blood pressure 110 mm[Hg] No Primary Care Physician [facility] 11-21-2024 12:47-0500 Body temperature 97.1 [degF] No Primary Care Physician [facility] 11-21-2024 12:47-0500 Diastolic blood pressure 70 mm[Hg] No Primary Care Physician [facility] 11-21-2024 12:47-0500 Heart rate 72 /min No Primary Care Physician [facility] 11-21-2024 12:47-0500 Respiratory rate 15 /min No Primary Care Physician [facility] 11-21-2024 12:47-0500 SaO2% (BldA) [Mass fraction] 99 % No Primary Care Physician [facility] 11-21-2024 12:47-0500 Systolic blood pressure 124 mm[Hg] No Primary Care Physician [facility] 11-21-2024 11:06-0500 Body height 157.48 cm No Primary Care Physician [facility] 11-21-2024 11:06-0500 Body mass index (BMI) [Ratio] 25.6 kg/m2 No Primary Care Physician [facility] 11-21-2024 11:06-0500 Body weight 63.5 kg No Primary Care Physician [facility] 09-25-2024 09:02-0500 Body mass index (BMI) [Ratio] 25.6 kg/m2 No Primary Care Physician [facility] 09-25-2024 09:02-0500 Body temperature 97.7 [degF] No Primary Care Physician [facility] 09-25-2024 09:02-0500 Body weight 63.5 kg No Primary Care Physician [facility] 09-25-2024 09:02-0500 Diastolic blood pressure 72 mm[Hg] No Primary Care Physician [facility] 09-25-2024 09:02-0500 Heart rate 92 /min No Primary Care Physician [facility] 09-25-2024 09:02-0500 Respiratory rate 16 /min No Primary Care Physician [facility] 09-25-2024 09:02-0500 SaO2% (BldA) [Mass fraction] 98 % No Primary Care Physician [facility] 09-25-2024 09:02-0500 Systolic blood pressure 118 mm[Hg] No Primary Care Physician [facility] 10-17-2023 08:26-0500 Body height 157.48 cm LAITH OZUNA Work Phone: [facility] 10-17-2023 08:26-0500 Body mass index (BMI) [Ratio] 26.3 kg/m2 PA Antonio Sharpe PA Work Phone: [facility] 10-17-2023 08:26-0500 Body temperature 98 [degF] PA Antonio Sharpe PA Work Phone: [facility] 10-17-2023 08:26-0500 Body weight 65.31 kg PA Antonio Sharpe PA Work Phone: [facility] 10-17-2023 08:26-0500 Diastolic blood pressure 78 mm[Hg] PA Antonio Sharpe PA Work Phone: [facility] 10-17-2023 08:26-0500 Heart rate 91 /min PA Antonio Sharpe PA Work Phone: [facility] 10-17-2023 08:26-0500 Respiratory rate 12 /min PA Antonio Sharpe PA Work Phone: [facility] 10-17-2023 08:26-0500 SaO2% (BldA) [Mass fraction] 97 % PA Antonio Sharpe PA Work Phone: [facility] 10-17-2023 08:26-0500 Systolic blood pressure 110 mm[Hg] PA Antonio Sharpe PA Work Phone: [facility] 06-10-2022 19:51-0400 Body temperature 97.2 [degF] Keturah Wall PA-C Work Phone: [facility] 06-10-2022 19:51-0400 Body weight 54.43 kg Keturah Wall PA-C Work Phone: [facility] 06-10-2022 19:51-0400 Diastolic blood pressure 88 mm[Hg] Keturah Wall PA-C Work Phone: [facility] 06-10-2022 19:51-0400 Heart rate 85 /min Keturah Wall PA-C Work Phone: [facility] 06-10-2022 19:51-0400 Respiratory rate 16 /min Keturah Wall PA-C Work Phone: [facility] [employer] 06-10-2022 19:51-0400 SaO2% (BldA) [Mass fraction] 98 % Keturah Wall PA-C Work Phone: [facility] [employer] 06-10-2022 19:51-0400 Systolic blood pressure 128 mm[Hg] Keturah Wall PA-C Work Phone: [facility] Encounters Encounter Date Encounter Type Care Provider Facility Start: 08-20-2025 ambulatory Katy Mcneil CANE CUTTER [facility] ity:[facility] Start: 08-14-2025 End: 08-14-2025 ambulatory Tereza Glenpool Facility:[facility] Start: 08-06-2025 End: 08-06-2025 ambulatory Katy Mcneil CANE CUTTER Facility:[facility] Start: 08-01-2025 ambulatory Tereza Syed Facility :[facility] Start: 08-01-2025 Registered Referred [facility] -Laboratory Work Phone: Start: 07-30-2025 End: 07-30-[address] Arabella Orellana MD -[facility] Work Phone: Start: 07-30-2025 End: 07-30-2025 ambulatory Tereza Glenpool Facility:[facility] Start: 07-30-2025 End: 07-30-2025 ambulatory Tereza Glenpool Facility:[facility] Start: 07-24-2025 End: 07-24-2025 ambulatory JOHAN [facility] Start: 07-02-2025 End: 07-02-[address] Arabella Orellana MD -[facility] Work Phone: Start: 07-02-2025 End: 07-02-[address] Tereza Lynch MD Work Phone: [phone] [place] [address] Start: 06-23-2025 Non-patient / Non-visit Dr. Yang Conti MD -[facility] Work Phone: Start: 06-23-2025 End: 06-23-[address] Arabella Orellana MD -Pulmonary Services/Neurology Work Phone: Start: 06-23-2025 End: 06-23-2025 ambulatory Tereza Lynch Facility:[facility] Start: 06-23-2025 End: 06-23-[address] Arabella Orellana MD -[facility] Work Phone: Start: 06-23-2025 End: 06-23-[address] Tereza Lynch MD Work Phone: [facility] Start: 06-23-2025 End: 06-23-2025 ambulatory Tereza Lynch Facility:[facility] Start: 06-18-2025 End: 06-18-[address] Latoya Mcgregor DO -[facility] Work Phone: Start: 06-18-2025 End: 06-18-2025 ambulatory Latoya Mcgregor Facility:[facility] Start: 06-18-2025 End: 06-18-2025 ambulatory Tereza Lynch Facility:[facility] Start: 06-04-2025 End: 06-04-2025 Patient encounter procedure Katy BLAKE -[facility] Work Phone: Start: 06-04-2025 End: 06-04-[address] Tereza Lynch MD Work Phone: -[facility] Start: 05-07-2025 End: 05-07-[address] Latoya Mcgregor DO -[facility] Work Phone: Start: 05-07-2025 End: 05-07-[address] Tereza Lynch MD Work Phone: -[facility] Start: 04-15-2025 End: 04-15-[address] Tereza Lynch MD Work Phone: -Ultrasound [facility] Start: 04-15-2025 End: 04-15-2025 Patient encounter procedure Annika Lay ZAKI -Ultrasound [facility] Work Phone: Start: 04-15-2025 End: 04-15-2025 ambulatory Tereza Lynch Facility:[facility] Start: 04-07-2025 End: 04-07-[address] Tereza Lynch MD Work Phone: -Laboratory Specimen Start: 04-07-2025 End: 04-07-[address] Latoya Mcgregor DO -Laboratory Specimen Work Phone: Start: 04-07-2025 End: 04-07-[address] Latoya Mcgregor DO -[facility] Work Phone: Start: 04-07-2025 End: 04-07-[address] Tereza Lynch MD Work Phone: -[facility] Start: 04-07-2025 End: 04-07-2025 ambulatory Latoya Mcgregor Facility:[facility] Start: 04-03-2025 End: 04-03-[address] Arabella Orellana MD -[facility] Work Phone: Start: 04-03-2025 End: 04-03-[address] Tereza Lynch MD Work Phone: [facility] Work Phone: Start: 04-03-2025 End: 04-03-2025 ambulatory Tereza Lynch Facility:[facility] Start: 03-25-2025 End: 03-25-[address] Latoya Mcgregor DO -[facility] Work Phone: Start: 03-25-2025 End: 03-25-[address] Tereza Lynch MD Work Phone: [facility] Work Phone: Start: 02-27-2025 End: 02-27-2025 Patient encounter procedure Al OZUNA -[facility] Work Phone: Start: 02-27-2025 End: 02-27-[address] Darron Soriano Work Phone: [facility] Work Phone: Start: 02-27-2025 End: 02-27-2025 ambulatory Al OZUNA Facility:[facility] Start: 02-12-2025 End: 02-12-2025 Patient encounter procedure Katy Mcneil CANE CUTTER-C -[facility] Work Phone: Start: 02-12-2025 End: 02-12-2025 ambulatory Tereza Lynch Facility:[facility] Start: 02-05-2025 Non-patient / Non-visit Dr. Latoya Mcgregor DO -[facility] Start: 02-05-2025 End: 02-05-2025 ambulatory No Primary Care Physician [facility] Work Phone: Start: 02-05-2025 End: 02-05-2025 Patient encounter procedure Katy Mcneil CANE CUTTER-C -Radiology, [facility] Work Phone: Start: 02-05-2025 End: 02-05-2025 ambulatory Tereza Lynch Facility:[facility] Start: 01-21-2025 End: 01-21-2025 Patient encounter procedure Katy Mcneil CANE CUTTER-C -Laboratory Work Phone: Start: 01-21-2025 End: 01-21-2025 ambulatory Tereza Lynch Facility:[facility] Start: 12-23-2024 End: 12-23-2024 ambulatory No Primary Care Physician [facility] Work Phone: Start: 12-23-2024 End: 12-23-2024 Patient encounter procedure Katy Mcneil CANE CUTTER-C -Laboratory Work Phone: Start: 12-23-2024 End: 12-23-2024 ambulatory Katy Mcneil CANE CUTTER Facility:[facility] Start: 11-25-2024 End: 11-25-2024 Patient encounter procedure Katy Mcneil CANE CUTTER-C -Laboratory Work Phone: Start: 11-25-2024 End: 11-25-2024 ambulatory Katy Mcneil CANE CUTTER Facility:[facility] Start: 11-21-2024 End: 11-21-2024 Emergency department patient visit Dr. Darron Soriano -Emergency Department Work Phone: Start: 10-22-2024 End: 10-22-2024 Patient encounter procedure Katy Mcneil CANE CUTTER-C -Laboratory Work Phone: Start: 10-22-2024 End: 10-22-2024 ambulatory No Primary Care Physician Facility:[facility] Start: 09-25-2024 End: 09-25-[address] Tereza Lynch MD -[facility] Work Phone: Start: 09-25-2024 End: 09-25-2024 ambulatory No Primary Care Physician Facility:[facility] Start: 09-20-2024 End: 09-20-2024 Patient encounter procedure Katy Mcneil CANE CUTTER-C -Laboratory Work Phone: Start: 09-20-2024 End: 09-20-2024 ambulatory No Primary Care Physician Facility:[facility] Start: 06-28-2024 End: 06-28-2024 ambulatory No Primary Care Physician Facility:[facility] Start: 10-17-2023 End: 10-17-2023 ambulatory LAITH OZUNA Work Phone: [facility] Work Phone: Start: 10-17-2023 End: 10-17-2023 Patient encounter procedure LAITH OZUNA Work Phone: [facility]-Laboratory, Specimen Work Phone: Start: 10-17-2023 End: 10-17-2023 Patient encounter procedure LAITH OZUNA Work Phone: [facility] Work Phone: Start: 06-10-2022 End: 06-10-2022 ambulatory KETURAH BARRETO [facility] Start: 06-10-2022 End: 06-10-2022 Office outpatient visit 15 minutes Keturah Barreto PA-C Work Phone: [facility] Comment on above: Dysuria (Primary Dx) ; Urinary urgency Start: 01-10-2022 Refill Laurita WHIPPLE RN.DIRECTOR IMAGING Work Phone: OB/Gynecology Comment on above: Refill Request Procedures Date Procedure Procedure Detail Performing Clinician Start: 08-01-2025 Serum inorganic phos phate measurement Dr. Tereza Lynch MD Work Phone: Start: 07-30-2025 Serologic test for syphilis Dr. Tereza Lynch MD Work Phone: Start: 06-18-2025 Ultrasonography in f irst trimester Dr. Tereza Lynch MD Work Phone: Start: 04-15-2025 Transvaginal obstetr ic ultrasonography Dr. Tereza Lynch MD Work Phone: Start: 04-07-[address] Migdalia Lynch MD Work Phone: Start: 04-03-2025 Gram stain microscopy D temi Lynch MD Work Phone: Start: 04-03-[address] Tereza Lynch MD Work Phone: Start: 04-03-2025 Hepatitis C antibody measurement Dr. Tereza Lynch MD Work Phone: Comment on above: Reactive: Presumptiv e evidence of antibodies to HCV. Follow CDC recommendations for supplemental testing.Non-Reactive: Antibodies to HCV were not detected; does not exclude the possibility of exposure to HCVReactive Results are presumptive evidence of antibodies to HCV. Follow CDC recommendations for supplemental testing.Order confirmation testing: HCV Quant by PCR testing - HCVPCR #[id number] Non Reactive: < 0.8 Equivocal: >/= 0.8 to < 1.0 Reactive: >/= 1.0The CDC requires that a reactive/equivocal HCV antibody result be sent out for confirmation. HCV Quant by PCR testing. Start: 04-03-[address] Tereza Lynch MD Work Phone: Comment on above: Antibody Result: Int erpretationNon-Reactive: Non- ImmuneReactive: ImmuneThe following results were obtained with the [employer] Rubella IgG assay. Results from assays of other manufacturers cannot be used interchangeably. Start: 04-03-2025 Serologic test for syphilis Dr. Tereza Lynch MD Work Phone: Start: 02-27-[address] Darron Soriano Work Phone: Start: 02-05-2025 Imaging of abdomen No P [facility] Care Physician Start: 01-21-2025 Serum progesterone measurement No Primary Care Physician Comment on above: Follicular phase 0.1 - 0.9 Luteal phase 1.8 - 23.9 Ovulation phase 0.1 - 12.0 First trimester 11.0 - 44.3 Second trimester 25.4 - 83.3 Third trimester 58.7 - 214.0 Postmenopausal 0.0 - 0.1Performed at: [facility] [employer] [id number] Director: Robert Aguiar PhD, Phone: [phone] Start: 12-23-2024 Serum progesterone measurement No Primary Care Physician Comment on above: Follicular phase 0.1 - 0.9 Luteal phase 1.8 - 23.9 Ovulation phase 0.1 - 12.0 First trimester 11.0 - 44.3 Second trimester 25.4 - 83.3 Third trimester 58.7 - 214.0 Postmenopausal 0.0 - 0.1Performed at: [facility] [employer] [id number] Director: Robert Aguiar PhD, Phone: [phone] Start: 11-25-2024 Serum progesterone measurement No Primary Care Physician Comment on above: Follicular phase 0.1 - 0.9 Luteal phase 1.8 - 23.9 Ovulation phase 0.1 - 12.0 First trimester 11.0 - 44.3 Second trimester 25.4 - 83.3 Third trimester 58.7 - 214.0 Postmenopausal 0.0 - 0.1Performed at: [facility] [place], [place] [id number] Director: Robert Aguiar PhD, Phone: [phone] Start: 11-21-2024 X-ray of cervical spine No Primary Care Physician Start: 11-21-2024 X-ray of chest, PA a nd lateral views No Primary Care Physician Start: 10-22-2024 Serum progesterone measurement No Primary Care Physician Comment on above: Follicular phase 0.1 - 0.9 Luteal phase 1.8 - 23.9 Ovulation phase 0.1 - 12.0 First trimester 11.0 - 44.3 Second trimester 25.4 - 83.3 Third trimester 58.7 - 214.0 Postmenopausal 0.0 - 0.1Performed at: [employer] [id number] Director: Robert Aguiar PhD, Phone: [phone] Start: 10-17-2023 Urine culture LAITH OZUNA Work Phone: Start: 06-10-2022 Urnls dip stick/tabl et rgnt auto w/o microscopy Keturah Barreto PAJessica Work Phone: Plan of Treatment Date Care Activity Detail Author Start: 2050 Zoster Vaccines (1 of 2) Zoster Vaccines (1 of 2) [facility] Start: 08-14-2025 End: 08-14-2025 Patient encounter procedure Anxiety -[facility] Work Phone: Start: 08-13-2025 Registered Recurring Registered Recurring -Nutritional Services Work Phone: Start: 08-06-2025 End: 08-06-2025 Patient encounter procedure Departed Clinical -Laboratory Work Phone: Start: 07-02-2025 Measurement of glucose 2 hours after glucose challenge for glucose tolerance test [facility] Start: 07-02-2025 Serologic test for syphilis [facility] Start: 07-02-2025 [facility] Start: 04-07-2025 Bacteria identified in Urine by Culture Urine Culture [facility] Start: 04-07-2025 Chlamydia deoxyribonucleic acid detection [facility] Start: 04-07-2025 [facility] Start: 11-21-2024 [facility] Start: 06-09-2022 Influenza vaccination [facility] Start: 08-05-2021 Urine microalbumin profile DTAP,TDAP,TD (7 - Td or Tdap) [facility] Start: 2021 PAP TESTING PAP TESTING [facility] Start: 2021 Screening for malignant neoplasm of cervix Pap Smear [facility] Start: 06-15-2021 COVID-19 VACCINE (2 - Pfizer 3-dose series) COVID-19 VACCINE (2 - Pfizer 3-dose series) [facility] Start: 2019 DTaP/Tdap/Td Vaccines (1 - Tdap) DTaP/Tdap/Td Vaccines (1 - Tdap) [facility] Start: 2018 CHLAMYDIA SCREENING (18-24) CHLAMYDIA SCREENING (18-24) [facility] Start: 2018 GC (GONORRHEA) SCREENING (18-24) GC (GONORRHEA) SCREENING (18-24) [facility] Start: 2018 HEPATITIS C SCREENING HEPATITIS C SCREENING [facility] Start: 2018 HIV SCREENING HIV SCREENING [facility] Start: 2014 PEDS TO ADULT TRANSITION ANNUAL ASSESSMENT PEDS TO ADULT TRANSITION ANNUAL ASSESSMENT [facility] Start: 2012 Adult depression screening assessment DEPRESSION SCREENING [facility] Start: 2012 PEDS TO ADULT TRANSITION INITIAL DISCUSSION PEDS TO ADULT TRANSITION INITIAL DISCUSSION [facility] Start: 2011 HPV VACCINE (1 - 2-dose series) HPV VACCINE (1 - 2-dose series) [facility] Start: 2011 HPV Vaccines (1 - 2-dose series) HPV Vaccines (1 - 2-dose series) [facility] Start: 2010 Meningococcal B Vaccine (1 of 2 - Risk Bexsero 2-dose series) Meningococcal B Vaccine (1 of 2 - Risk Bexsero 2-dose series) [facility] Start: 2010 MENINGOCOCCAL B: Consider based on risk (1 of 2 - Risk Bexsero 2-dose series) MENINGOCOCCAL B: Consider based on risk (1 of 2 - Risk Bexsero 2-dose series) [facility] Start: 2001 MMR Vaccines (1 of 1 - Standard series) MMR Vaccines (1 of 1 - Standard series) [facility] Start: 01-29-2001 COVID-19 Vaccine (#1) COVID-19 Vaccine (#1) [facility] Start: 2000 Hepatitis C screening Hepatitis C Screening [facility] Start: 2000 HIV screening HIV Screening [facility] CBC W Auto Different ial panel - Blood [facility] Chlamydia deoxyribon ucleic acid detection [facility] Electrocardiographic procedure [facility] Erythrocyte mean cor puscular volume determination [facility] Hematocrit [Volume F raction] of Blood [facility] Hemoglobin [Mass/vol ume] in Blood [facility] Hemoglobin A1c/Hemoglobin.total in Blood [facility] Hepatitis B virus reyes rface Ag [Presence] in Serum [facility] Hepatitis C antibody measurement [facility] Leukocytes [#/volume] in Blood [facility] Mean corpuscular hem oglobin concentration determination [facility] Mean corpuscular hem oglobin determination [facility] Neisseria gonorrhoea e rRNA [Presence] in Unspecified specimen by RAMÓN with probe detection [facility] Neutrophil count [facility] Neutrophil percent differential count [facility] Patient Education ED Chest Wall Contusion ED Neck Sprain or Strain [facility] Work Phone: Patient referral [facility] Work Phone: PCR test for Chlamyd ia trachomatis [facility] Platelets [#/volume] in Blood [facility] Red blood cell count [facility] Red cell distributio n width determination [facility] Rubella IgG measurement [facility] Serologic test for syphilis [facility] Ultrasonography in f irst trimester [facility] Urine culture [facility] Immunizations Immunization Date Immunization Notes Care Provider Susana richardson 08-03-2023 influenza, injectabl e, quadrivalent, preservative free LAITH OZUNA Work Phone: [facility] 06-16-2023 tetanus toxoid, redu maryanne diphtheria toxoid, and acellular pertussis vaccine, adsorbed LAITH OZUNA Work Phone: [facility] 07-03-2021 influenza, injectabl e, quadrivalent, preservative free No Primary Care Physician [facility] 06-18-2021 Covid (Pfizer) No Primary Ca re Physician [facility] 05-25-2021 COVID-19 vaccine, ag e 12+ yr ([employer] - PURPLE TOP) Laurita Peters APRN.[facility] Work Phone: [facility] Work Phone: 07-08-2020 influenza, injectabl e, quadrivalent, preservative free No Primary Care Physician [facility] 06-10-2020 meningococcal polysaccharide (groups A, C, Y and W-135) diphtheria toxoid conjugate vaccine (MCV4P) No Primary Care Physician [facility] 08-05-2011 meningococcal polysaccharide (groups A, C, Y and W-135) diphtheria toxoid conjugate vaccine (MCV4P) No Primary Care Physician [facility] 08-05-2011 Meningococcal, MCV4, unspecified conjugate formulation(groups A, C, Y and W-135) Laurita Peters APRN.[facility] Work Phone: [facility] Work Phone: 08-05-2011 tetanus toxoid, redu maryanne diphtheria toxoid, and acellular pertussis vaccine, adsorbed Laurita Peters APRN.[facility] Work Phone: [facility] Work Phone: 10-06-2009 novel influenza-H1N1 -09, all formulations Laurita Peters APRN.[facility] Work Phone: [facility] Work Phone: 09-07-2009 influenza virus vacc ine, unspecified formulation Laurita Peters APRN.[facility] Work Phone: [facility] Work Phone: 09-08-2008 varicella virus vaccine Laurita Peters APRN.DIRECTOR IMAGING Work Phone: [facility] Work Phone: 12-23-2005 diphtheria, tetanus toxoids and acellular pertussis vaccine Laurita Peters APRN.DIRECTOR IMAGING Work Phone: [facility] Work Phone: 12-23-2005 measles, mumps and rubella virus vaccine Laurita Peters APRN.DIRECTOR IMAGING Work Phone: [facility] Work Phone: 12-23-2005 poliovirus vaccine, inactivated Laurita Peters APRN.DIRECTOR IMAGING Work Phone: [facility] Work Phone: 05-13-2002 varicella virus vaccine Laurita Peters APRN.DIRECTOR IMAGING Work Phone: [facility] Work Phone: 12-06-2001 hepatitis B vaccine, pediatric or pediatric/adolescent dosage Laurita Peters APRN.DIRECTOR IMAGING Work Phone: [facility] Work Phone: 11-05-2001 diphtheria, tetanus toxoids and acellular pertussis vaccine Laurita Peters APRN.DIRECTOR IMAGING Work Phone: [facility] Work Phone: 11-05-2001 haemophilus influenz ae type b conjugate and Hepatitis B vaccine No Primary Care Physician [facility] 11-05-2001 haemophilus influenz ae type b vaccine, HbOC conjugate Laurita Peters APRN.DIRECTOR IMAGING Work Phone: [facility] Work Phone: 08-27-2001 measles, mumps and rubella virus vaccine Laurita Peters APRN.DIRECTOR IMAGING Work Phone: [facility] Work Phone: 08-27-2001 poliovirus vaccine, inactivated Laurita Peters APRN.DIRECTOR IMAGING Work Phone: [facility] Work Phone: 01-26-2001 diphtheria, tetanus toxoids and acellular pertussis vaccine Laurita Peters APRN.DIRECTOR IMAGING Work Phone: [facility] Work Phone: 2000 diphtheria, tetanus toxoids and acellular pertussis vaccine Laurita Peters CENTRIFUGE SEPARATOR OPERATOR.[facility] Work Phone: [facility] Work Phone: 2000 haemophilus influenz ae type b conjugate and Hepatitis B vaccine No Primary Care Physician [facility] 2000 haemophilus influenz ae type b vaccine, HbOC conjugate Laurita Peters CENTRIFUGE SEPARATOR OPERATOR.[facility] Work Phone: [facility] Work Phone: 2000 hepatitis B vaccine, pediatric or pediatric/adolescent dosage Laurita Peters CENTRIFUGE SEPARATOR OPERATOR.[facility] Work Phone: [facility] Work Phone: 2000 poliovirus vaccine, inactivated Laurita Peters CENTRIFUGE SEPARATOR OPERATOR.[facility] Work Phone: [facility] Work Phone: 2000 diphtheria, tetanus toxoids and acellular pertussis vaccine Laurita Peters CENTRIFUGE SEPARATOR OPERATOR.[facility] Work Phone: [facility] Work Phone: 2000 haemophilus influenz ae type b conjugate and Hepatitis B vaccine No Primary Care Physician [facility] 2000 haemophilus influenz ae type b vaccine, HbOC conjugate Laurita Peters CENTRIFUGE SEPARATOR OPERATOR.[facility] Work Phone: [facility] Work Phone: 2000 hepatitis B vaccine, pediatric or pediatric/adolescent dosage Laurita Peters CENTRIFUGE SEPARATOR OPERATOR.[facility] Work Phone: [facility] Work Phone: 2000 poliovirus vaccine, inactivated Laurita Peters CENTRIFUGE SEPARATOR OPERATOR.[facility] Work Phone: [facility] Work Phone: Payers Date Payer Category Payer Self-pay 2024 Unknown [id number] 2021 Unknown [employer] P[employer] [id number] 2021-Present [phone] [address] [place] [address] PPO [id number] 2000 Unknown [id number] Unknown [id number] Unknown [id number] Unknown [id number] Unknown [id number] Unknown [id number] Unknown [id number] Unknown [id number] Unknown [id number] Unknown [id number] Unknown [id number] Unknown [id number] 2.16.840.1.171211.3.579.2.462 Unknown [id number] 2.16.840.1.324226.3.579.2.462 Unknown [id number] 2.16.840.1.621268.3.579.2.462 Unknown [id number] 2.16.840.1.683542.3.579.2.462 Unknown [id number] 2.16.840.1.542825.3.579.2.462 Unknown [id number] 2.16.840.1.514741.3.579.2.462 Unknown [id number] 2.16.840.1.659825.3.579.2.462 Unknown [id number] 2.16.840.1.978167.3.579.2.462 Unknown [id number] 2.16.840.1.432917.3.579.2.462 Unknown [id number] 2.16.840.1.488375.3.579.2.462 Unknown [id number] 2.16.840.1.171181.3.579.2.462 Unknown [id number] 2..840.1.745430.3.579.2.462 Unknown [id number] 2.840.1.631010.3.579.2.462 Unknown [id number] 2.16.840.1.460462.3.579.2.462 Unknown [id number] 2.16.840.1.628872.3.579.2.462 Unknown [id number] 2.16.840.1.374587.3.579.2.462 Unknown [id number] 2.16.840.1.628327.3.579.2.462 Unknown [id number] 2.840.1.524839.3.579.2.462 Unknown [id number] 2.16.840.1.041676.3.579.2.462 Unknown [id number] 2.16.840.1.517975.3.579.2.462 Unknown [id number] 2.16.840.1.591280.3.579.2.462 Unknown [id number] 2.16.840.1.411702.3.579.2.462 Unknown [id number] 2.16.840.1.359719.3.579.2.462 Unknown [id number] 2.16.840.1.997614.3.579.2.462 Social History Date Type Detail Facility Start: 05-21-2013 End: 03-25-2025 Tobacco smoking status RIIS Never smoked tobacco [facility] Start: 05-21-2013 Tobacco use and exposure Smokeless tobacco non-user [facility] Start: 05-25-2021 Alcohol intake 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) [facility] Start: 2000 Sex Assigned At Not on file [facility] Tobacco smoking status [facility] Tobacco smoking consumption unknown [facility] Start: 05-31-2022 End: 06-10-2022 Exposure to SARS-CoV-2 (event) Not sure [facility] Start: 2000 Sex Assigned At Female [facility] Start: 12-31-2024 Sex Female (finding) [facility] Sex Female [facility] Medical Equipment Procedure Code Equipment Code Equipment Origin al Text Equipment Identifier Dates Blood Sugar Diagnostic (Blood Glucose Test) strip Start: 08-06-2025 Lancets (Droplet Lancets) 30 gauge misc Start: 08-06-2025 Clinical Notes 05-25-2021 to 07-30-2025 Note Date & Type Note Facility 07-30-2025 Progress note [facility] 07-02-2025 Progress note [facility] 07-02-2025 Progress note Note Date/Time July 02, 2025 2:16pm [facility] [address], [address] [place] [address] OFFICE VISIT Date of Service: 07/02/25 MR#: [id number] Acct: [id number] Name: MARCELA DASH Rep #: [id number] : 2000 Provider: Dr. Herbert Orellana MD Age/Sex: 24/F [place] [facility] [place]: Signed Intake Vital Signs 05/07/25 10:52 06/23/25 08:52 07/02/25 13:49 Height 5 ft 2 in 5 ft 2 in 5 ft 2 in Weight: 147 lb 1 oz 147 lb 1 oz BMI 26.9 26.9 BP 119/72 Intake Visit Reasons: 22 WK OB Chief Complaint: 22wk OB Banquet Food Server Required: No Is patient in pain?: No Allergies No Known Allergies Allergy (Verified 07/02/25 13:46) Medications ?Medication ?Instructions ?Recorded ?Confirmed ?Type Omeprazole [Prilosec] 40 mg PO DAILY 01/12/1506/10 History Ranitidine [Zantac] 150 mg PO PRN PRN Heartburn 01/12/15 07/02/25 History minocycline 100 mg capsule 100 mg PO BID 01/12/1506/10 History PNV 153-FA 400 mcg-om3 35 mg-dha tab PO 03/25/2507/02 History 25 mg-epa 5 mg-fish oil chew tablet famotidine 20 mg tablet (Pepcid) 20 mg PO BID #60 tabs 05/07/25 07/02/25 Rx Last Menstrual Period: 01/28/25 : No [facility] Medical History History of hysterosalpingogram Seasonal allergies Ovarian cyst UTI (urinary tract infection) Urinary frequency Surgical History No pertinent past surgical history Family History Grandfather Diabetes Maternal & Paternal Heart disease Paternal Grandmother Breast cancer, Onset Age: 60 Paternal Mother Hypertension Father Hypertension Diabetes Social History adopted: No household members: spouse housing: house number of children: 0 current occupational status: employed 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[employer] current occupational exposures/hazards: No pets and animals: Yes pets and animals: dog(s) 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 history of recent travel: Yes ([place]) out of state: Yes out of country: No sexually active: Yes Smoking Status: Never smoker Electronic Cigarette Use: not used second hand exposure: No alcohol intake: never substance use type: does not use well-balanced diet: daily or most days caffeine: No eating out: rarely or never during the past year weight has: remained stable what type of physical activity do you participate in: walking frequency: 3-4 times per week duration: 30-45 minutes/day etienne/zoroastrian: Methodist seatbelt use: always do you feel safe at home: Yes 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 OB Visit STEFFANIE Calculator Estimated Delivery Date Method Current WG Current Estimate 11/04/25 LMP (Certain) 22w 1d Expected Delivery Route/Plan Labor Preferences- CB/BF classes: [] labor support person: [] labor intervention preferences: [] pain management options preferred: [] cut cord/dad catch: [] : [] PP control planned: [] discussed possible routes of delivery and associated risks: [] special requests: [] Specific Issue/Plans Covid status: [] Flu vaccine: [] Tdap vaccine: [] Rhogam: [] LARC form signed: [] Problem list reviewed and updated with the most current plan of care details and appropriate orders placed. Relevant counseling for the gestational age provided. Continue routine care and follow up unless otherwise noted in visit notes/problem list details Initial Weight: 137 lb Date -?-?-?-?-?-?-?-?-?-?-?-?- EGA Weight BP Urine Prot -?-?-?-?-?-?-?-?-?-?-?-?- Glucose FHR FuHt Pres Dilation -?-?-?-?-?-?-?-?-?-?-?-?- Effaced St Visit Note 04/07/25 -?-?-?-?-?-?-?-?-?-?-?-?- 9w 6d 137 lb 8 oz (+8 oz) 123/75 -?-?-?-?-?-?-?-?-?-?-?-?- 171 -?-?-?-?-?-?-?-?-?-?-?-?- JV- CRL consiste nt with LMP. Still has some brown discharge. no lissa today or reason for bleeding. vaginitis smear was negative. 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 overall doing well with still some indigestion. 06/04/25 -?-?-?-?-?-?-?-?-?-?-?-?- 18w 1d 142 lb 7 oz (+5 lb 7 oz) 126/78 Negative -?-?-?-?-?-?-?-?-?-?-?-?- Negative 148 -?-?-?-?-?-?-?-?-?-?-?-?- MH-NO VB. No flu tters yet. Feeling well 06/23/25 -?-?-?-?-?-?-?-?-?-?-?-?- 20w 6d 142 lb 7 oz (+5 lb 7 oz) 130/77 Negative -?-?-?-?-?-?-?-?-?-?-?-?- Negative 145 -?-?-?-?-?-?-?-?-?-?-?-?- Sm- co intermitt ent palpitations, resting heart rate in the 90s and HR up to 120or 130 with activity. she has had some heartburn symptoms 07/02/25 -?-?-?-?-?-?-?-?-?-?-?-?- 22w 1d 147 lb 1 oz (+10 lb 1 oz) 119/72 Negative -?-?-?-?-?-?-?-?-?-?-?-?- Negative 145 -?-?-?-?-?-?-?-?-?-?-?-?- SM- feeling bett er no vb cramping ekg reviewed ACOG First Trimester First Trimester: Desire for , Alcohol, Tobacco Cessation, Illicit/Recreational Drug/Substance Use, Intimate Partner Violence, Barriers to care, Unstable Housing, Communication Barriers, Environmental/Work Hazards, Anticipated Course of Care, Toxoplasmosis Precations, Use of Any medications, Sexual activity, Exercise, Dental Care, Sauna/Hot tub use, Seat Belt use, Childbirth classes/Hospital facilities, Travel, Indications for Ultrasound and Screening for Aneuploidy; Discussed Results POC Urinalysis 2 Dip (Clinic) Office Urine Glucose Negative Last Edit by Teena Genao on 07/02/25 13:55 Office Urine Protein Negative Last Edit by Teena Genao on 07/02/25 13:55 Coding Level of Care Code OB Routine Diagnoses Palpitation R00.2 Infertility Vaginal bleeding during O46.90 Encounter for supervision of normal first in second trimester Z34.02 Normal : normal first Trimester: second trimester 22 weeks gestation of Z3A.22 Weeks of gestation: 22 weeks Anxiety F41.9 Assessment and Plan Assessment and Plan (1) Palpitation: Status: Acute Comment: EKG ordered. supportive measures discussed (2) Infertility: Status: Acute Comment: Spont after HSG. Prior use of letrazole. (3) Vaginal bleeding during : Status: Acute Comment: LISSA noted on formal US- up to 1.6 cm. 2.3cm on [facility] anatomy scan (4) Supervision of normal : Status: Acute Qualifiers: Normal : normal first Trimester: second trimester Qualified Code(s): Z34.02 - Encounter for supervision of normal first , second trimester Comment: [id number], STEFFANIE 11/04/25, girl Christopher (5) : Status: Acute Qualifiers: Weeks of gestation: 22 weeks Qualified Code(s): Z3A.22 - 22 weeks gestation of Comment: discussed NIPT&Carrier testing-undecided, nl anatomy with consistent due date (6) Anxiety: Status: Acute Comment: participates in counseling Orders: Orders POC Urinalysis 2 Dip (Clinic) Today CBC W/Diff, Automated Today Z34.02 - Encounter for supervision of normal first , second trimester, Z3A.22 - 22 weeks gestation of HIV Today Z34.02 - Encounter for supervision of normal first , second trimester, Z3A.22 - 22 weeks gestation of Syphilis Antibodies Today Z34.02 - Encounter for supervision of normal first , second trimester, Z3A.22 - 22 weeks gestation of Glucose Challenge Gest 1H 50g Today Z34.02 - Encounter for supervision of normal first , second trimester, Z3A.22 - 22 weeks gestation of 07/02/25 1451 <Electronically signed by Arabella crooks MD> Date _ Arabella Orellana MD Cosigner Signature: Date (if applicable) CC: ~ [facility] Work Phone: 1(294) 627-232309-11-2025 Radiology Diagnostic study note [facility] Imaging Services [address] [place] [address] OB Anatomy w/ Transvaginal MR#: [id number] Acct: [id number] Name: MARCELA DASH Rep #: [id number] : 2000 F 24 From: Orion Ni MD PCP: Dr. Tereza Lynch MD Status: REG CLI Study:OB Anatomy w/ Transvaginal Date of Exam : 06/18/25 Exam# [id number] Ordering Dr: Latoya Gant DO PROCEDURE: OB ANATOMY W/ TRANSVAGINAL 06/18/2025 REASON FOR EXAM: CERVICAL LENGTH/ANATOMY TECHNIQUE: Procedure Code: USOBANATVAG Modality: US Procedure: OB ANATOMY W/ TRANSVAGINAL COMPARISON: April 15, 2025. FINDINGS Number: 1 Position: Vertex Placental Position: Posterior and not low-lying. Placental Abnormalities: No evidence of previa. There is evidence of a 2.3 cm 1.9 cm 1 cm subchorionic bleed along the left side of the placenta. DIMENSIONS: Biparietal Diameter: 4.6 cm: 19 weeks and 6 days: 40 percentile/ Head Circumference: 17.9 cm: 20 weeks and 3 days: 53rd percentile/ Abdominal Circumference: 15.4 cm: 20 weeks and 4 days: 58 percentile/ Femur Length: 3.1 cm: 19 weeks and 5 days: 29 percentile/ ESTIMATED WEIGHT: 339 g plus/-50 g ESTIMATED WEIGHT PERCENTILE (24+ weeks): 48 ESTIMATED GESTATIONAL AGE: Baseline: 20 weeks and 1 day By Ultrasound: 20 weeks and 1 day ESTIMATED DATE OF DELIVERY: Baseline: November 04, 2025 By Ultrasound: November 04, 2025 BIOPHYSICAL ASSESSMENT: Amniotic Fluid Volume: 2.8 cm x 8.3 cm Amniotic Fluid Index: Within normal limits. (8-24 cm normal range) Cardiac Motion: 144 beats per minute (average) Trunk and Limb Motion: Present. MATERNAL ANATOMY: Adnexa: Neither maternal ovary is successfully identified. Cervical Length (if measured): 4.7 cm ANATOMY: Spine: Unremarkable Cranium: Unremarkable Cerebellum: Unremarkable Cisterna Magna: Unremarkable Cavum Septum Pellucidi: Unremarkable Lateral Ventricles: Unremarkable Choroid Plexus: Unremarkable Midline Falx: Unremarkable Nuchal Fold: Unremarkable Upper Lip: Unremarkable Heart: Unremarkable Stomach: Unremarkable Kidneys: Unremarkable Bladder: Unremarkable Umbilical Cord: Unremarkable Extremities: Unremarkable US/OB Anatomy w/ Transvaginal IMPRESSION: Single live intrauterine gestation with a mean gestational age of 20 weeks and 1day. Small subchorionic bleed. Reading Location: [id number] CC: Dr. Tereza Lynch MD; Dr. Latoya Mcgregor DO ~ 911 Operator: Signed [facility]07-30-2025 Evaluation note* Diagnosis Onset Date Resolution Status Admit Date Supervision of normal acute May 07, 2025 10:45am Vaginal bleeding during resolved May 07, 2025 10:45am Infertility acute June 04, 2025 12:52pm Supervision of normal acute June 04 12:52pm Vaginal bleeding during resolved June 04 12:52pm Infertility acute June 8:36am Palpitation June, acute Septembe r 2024 8:36am Supervision of normal acute June 23, 2025 8:36am Vaginal bleeding during resolved June 23, 2025 8:36am Anxiety acute June 1:44pm Infertility acute June 1:44pm Palpitation June, acute Septembe r 2024 1:44pm acute June 1:44pm Supervision of normal acute July 02, 2025 1:44pm Vaginal bleeding during resolved July 02, 2025 1:44pm Anxiety acute July 30, 2025 9:34am Infertility acute July 30, 2025 9:34am Palpitation June, acute July 30, 2025 9:34am acute July 30, 2025 9:34am Supervision of normal acute July 30 9:34am Anxiety acute August 14, 2025 10:18am Gestational diabetes mellitus acute August 14 10:18am Infertility acute August 14, 2025 10:18am Palpitation June, acute August 14, 2025 10:18am acute August 14, 2025 10:18am Supervision of normal acute August 14 10:18am [facility] Work Phone: 1(576) 466-437107-30-2025 [facility] [address] [place] [address], [address] [place] [address] OFFICE VISIT Date of Service: 05/07/25 MR#: [id number] Acct: [id number] Name: MARCELA DASH Rep #: [id number] : 2000 Provider: Dr. Katie Mcgregor DO Age/Sex: 24/F [place] [facility] [place]: Signed Intake Vital Signs 02/12/25 11:47 04/07/25 13:07 05/07/25 10:52 05/07/25 10:52 Height 5 ft 2 in 5 ft 2 in 5 ft 2 in 5 ft 2 in Weight: 135 lb 4 oz BMI 24.7 BP 111/73 Intake Visit Reasons: 12 wk ob Banquet Food Server Required: No Is patient in pain?: No Allergies No Known Allergies Allergy (Verified 05/07/25 10:52) Medications ?Medication ?Instructions ?Recorded ?Confirmed ?Type PNV 153-FA 400 mcg-om3 35 mg-dha tab PO 03/25/2505/07 History 25 mg-epa 5 mg-fish oil chew tablet Last Menstrual Period: 01/28/25 Zika: Zika virus screening: Negative : No PFSH PFSH Medical History History of hysterosalpingogram Seasonal allergies Ovarian cyst UTI (urinary tract infection) Urinary frequency Surgical History No pertinent past surgical history Family History Grandfather Diabetes Maternal & Paternal Heart disease Paternal Grandmother Breast cancer, Onset Age: 60 Paternal Mother Hypertension Father Hypertension Diabetes Social History adopted: No household members: spouse housing: house number of children: 0 current occupational status: employed 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[employer] current occupational exposures/hazards: No pets and animals: Yes pets and animals: dog(s) 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 history of recent travel: Yes ([place]) out of state: Yes out of country: No sexually active: Yes Smoking Status: Never smoker Electronic Cigarette Use: not used second hand exposure: No alcohol intake: never substance use type: does not use well-balanced diet: daily or most days caffeine: No eating out: rarely or never during the past year weight has: remained stable what type of physical activity do you participate in: walking frequency: 3-4 times per week duration: 30-45 minutes/day etienne/zoroastrian: Methodist seatbelt use: always do you feel safe at home: Yes 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 OB Visit STEFFANIE Calculator Estimated Delivery Date Method Current WG Current Estimate 11/04/25 LMP (Certain) 14w 1d Expected Delivery Route/Plan Labor Preferences- CB/BF classes: [] labor support person: [] labor intervention preferences: [] pain management options preferred: [] cut cord/dad catch: [] : [] PP control planned: [] discussed possible routes of delivery and associated risks: [] special requests: [] Specific Issue/Plans Covid status: [] Flu vaccine: [] Tdap vaccine: [] Rhogam: [] LARC form signed: [] Problem list reviewed and updated with the most current plan of care details and appropriate ordersplaced. Relevant counseling for the gestational age provided. Continue routine care and follow up unless otherwise noted in visit notes/problem list details Initial Weight: 137 lb Date -?-?-?-?-?-?-?-?-?-?-?-?- EGA Weight BP Urine Prot -?-?-?-?-?-?-?-?-?-?-?-?- Glucose FHR FuHt Pres Dilation -?-?-?-?-?-?-?-?-?-?-?-?- Effaced St Visit Note 04/07/25 -?-?-?-?-?-?-?-?-?-?-?-?- 9w 6d 137 lb 8 oz (+8 oz) 123/75 -?-?-?-?-?-?-?-?-?-?-?-?- 171 -?-?-?-?-?-?-?-?-?-?-?-?- JV- CRL consiste nt with LMP. Still has some brown discharge. no lissa today or reason for bleeding. vaginitis smear was negative. 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 overall doing well with still some indigestion. ACOG First Trimester First Trimester: Desire for , Alcohol, Tobacco Cessation, Illicit/Recreational Drug/Substance Use, Intimate Partner Violence, Barriers to care, Unstable Housing, Communication Barriers, Environmental/Work Hazards, Anticipated Course of Care, Toxoplasmosis Precations, Use of Any med ications, Sexual activity, Exercise, Dental Care, Sauna/Hot tub use, Seat Belt use, Childbirth classes/Hospital facilities, Travel, Indications for Ultrasound and Screening for Aneuploidy; Discussed Coding Level of Care Code OB Routine Diagnoses Vaginal bleeding during O46.90 Supervision of normal Z34.90 14 weeks gestation of Z3A.14 Weeks of gestation: 14 weeks Anxiety F41.9 Assessment and Plan Assessment and Plan (1) Vaginal bleeding during : Status: Acute Comment: LISSA noted on formal US- up to 1.6 cm. (2) Supervision of normal : Status: Acute Comment: , STEFFANIE 11/04/25, Christopher (3) : Status: Acute Qualifiers: Weeks of gestation: 14 weeks Qualified Code(s): Z3A.14 - 14 weeks gestation of Comment: discussed NIPT&Carrier testing-undecided (4) Anxiety: Status: Acute Comment: participates in counseling Orders: Orders POC Urinalysis 2 Dip (Clinic) Today OB Anatomy w/ Transvaginal Today Z34.90 - Encounter for supervision of normal , unspecified, unspecified trimester 05/07/25 1113 e Merle DO> Date _ Latoya Stevensign Signature: Date (if applicable) CC: ~ [facility]07-08-2025 Radiology Diagnostic study note [facility] Imaging Services [address] [place] [address] Transvaginal w/Preg US MR#: [id number] Acct: [id number] Name: MARCELA DASH Rep #: [id number] : 2000 F 24 From: Karishma Wong MD PCP: Dr. Tereza Lynch MD Status: REG CLI Study:Transvaginal w/Preg US Date of Exam: 04/15/25 Exam# [id number] Ordering Dr: Annika Lay CNM EXAM: US First Trimester , Transabdominal and Transvaginal CLINICAL INDICATION: BLEEDING IN PREG TECHNIQUE: Real-time transabdominal and transvaginal obstetrical ultrasound of the maternal pelvis and a first trimester with image documentation. Transvaginal imaging was used for better evaluation of the fetus and adnexa. COMPARISON: No relevant prior studies available. FINDINGS: GESTATION: Yolk sac 0.5 cm. CRL 4.6 cm. Gestational age 11 weeks and 2 days. heart rate 169 beats per minute. Gestational sac 5.1 cm. STEFFANIE: STEFFANIE 11/04/2025. PLACENTA/AMNIOTIC FLUID: Subchorionic bleed measuring up to 1.6 cm. UTERUS/CERVIX: Cervix closed. No myometrial mass. The uterus measures 9.3 x 10.4 x 7.0 cm. OVARIES: Unremarkable. No mass. The right ovary measures 3.2 x 2.3 x 2.4 cm. The left ovary measures 4.1 x 2.1 x 1.7 cm. FREE FLUID: No free fluid. US/Transvaginal w/Preg US IMPRESSION: A single live intrauterine as above. Reading Location: [facility] CC: ALEXEI Lay; Dr. Tereza Lynch MD ~ 911 Operator: Signed [facility]06-26-2025 Evaluation note* Diagnosis Onset Date Resolution Status Admit Date Supervision of normal acute April 03, 2025 8:36am Vaginal bleeding during acute April 03, 2025 8:36am Supervision of normal acute April 07, 2025 1:03pm Vaginal bleeding during acute April 07, 2025 1:03pm Amenorrhea resolved April 07 1:03pm Supervision of normal acute May 07, 2025 10:45am Vaginal bleeding during acute May 07, 2025 10:45am Infertility acute June 04, 2025 12:52pm Supervision of normal acute June 04 12:52pm Vaginal bleeding during acute June 04 12:52pm Infertility acute June 8:36am Palpitation June, acute Septembe r 2024 8:36am Supervision of normal acute June 23, 2025 8:36am Vaginal bleeding during acute June 23, 2025 8:36am Anxiety acute June 1:44pm Infertility acute June 1:44pm Palpitation June, acute Septembe r 2024 1:44pm acute June 1:44pm Supervision of normal acute July 02, 2025 1:44pm Vaginal bleeding during acute July 02, 2025 1:44pm [facility] Work Phone: 1(678) 574-821406-26-2025 [facility] [address] [place] [address], [address] [place] [address] OFFICE VISIT Date of Service: 04/03/25 MR#: [id number] Acct: [id number] Name: MARCELA DASH Rep #: [id number] : 2000 Provider: Dr. Herbert Orellana MD Age/Sex: 24/F [place] [facility] [place]: Signed Intake Vital Signs 03/25/25 10:57 04/03/25 08:38 04/03/25 08:40 Height 5 ft 2 in 5 ft 2 in 5 ft 2 in Weight: 136 lb 6 oz BMI 24.9 BP 133/83 H Intake Visit Reasons: Early OB spotting Banquet Food Server Required: No Is patient in pain?: No Allergies No Known Allergies Allergy (Verified 04/03/25 08:38) Medications ?Medication ?Instructions ?Recorded ?Confirmed ?Type PNV 153-FA 400 mcg-om3 35 mg-dha tab PO 03/25/2504/03 History 25 mg-epa 5 mg-fish oil chew tablet Is last menstrual period known: Yes Post menopausal: No Patient : Yes : No [facility] Medical History (Updated 04/03/25 @ 09:[address] 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[employer] current occupational exposures/hazards: No pets and animals: Yes pets and animals: dog(s) 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 history of recent travel: Yes ([place]) out of state: Yes out of country: No sexually active: Yes Smoking Status: Never smoker Electronic Cigarette Use: not used second hand exposure: No alcohol intake: never substance use type: does not use well-balanced diet: daily or most days caffeine: No eating out: rarely or never during the past year weight has: remained stable what type of physical activity do you participate in: walking frequency: 3-4 times per week duration: 30-45 minutes/day etienne/zoroastrian: [employer] seatbelt use: always do you feel safe at home: Yes 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 she denies any signifciant crmaping, started bleeidng red earlier this week and now has brown discharge when she wipes. She has a history of infertility and she conceived now, had an ultrasound at work this week showing FHT present. she denies any bowel complaints. she denies any vaginal infection symptoms. History 1 Elective abortions Hx Para 0 Spontaneous abortions Hx # Term Pregnancies Ectopic pregnancies Hx # Pregnancies Multiple births # of living children ROS Const Constitutional: Reports as per HPI; Denies fever(s) ENT ENT: Reports system reviewed and no additional complaints, except as documented Cardio Card: Reports system reviewed and no additional complaints, except as documented Resp Resp: Reports system reviewed and no additional complaints, except as documented GI GI: Reports as per HPI : Reports as per HPI Musc Musc: Reports system reviewed and no additional complaints, except as documented Skin Skin/Breast: Reports system reviewed and no additional complaints, except as documented Neuro Neuro: Reports system reviewed and no additional complaints, except as documented Endo Endo: Reports system reviewed and no additional complaints, except as documented Exam Const General: healthy appearing, comfortable and no acute distress HENMT Head: normal to inspection and normocephalic Neck Neck: no lymphadenopathy noted Thyroid: thyroid normal Chest Chest palpation & inspection: normal inspection of the chest Resp Effort & Inspection: normal respiratory effort Cardio Rate: regular rate Rhythm: regular rhythm GI Inspection: normal to inspection Palpation: soft and nontender External Female Exam: normal external appearance Speculum Exam - Vagina: normal appearance of the vagina and vaginal bleeding Bimanual Exam- Vagina & Uterus: uterine shape normal and non-tender OB/External & Speculum: vaginal bleeding Speculum Exam: vaginal bleeding Skin General: no rashes or lesions noted Neuro General: no focal motor deficits Extrem General: normal to inspection and no pedal edema Psych Appearance: grossly normal Coding Level of Care Code No Charge Diagnoses Vaginal bleeding during O46.90 Supervision of normal Z34.90 Z34.90 Anxiety F41.9 Assessment and Plan Assessment and Plan (1) Vaginal bleeding during : Status: Acute (2) Supervision of normal : Status: Acute Comment: , STEFFANIE 11/04/25, Christopher (3) : Status: Acute Comment: discussed NIPT&Carrier testing-undecided (4) Anxiety: Status: Acute Comment: participates in counseling Orders: Orders Hemoglobin A1c Today E28.2 - Polycystic ovarian syndrome Plan Problem list updated and treatment plans were reviewed with the patient and relevant educational handouts given. See problem list details for specific planinformation. 04/03/25 0908 daksha SINGLETON> Date _ [facility]rellana [facility] Signature: Date (if applicable) CC: ~ [facility]06-19-2025 Progress note Author Latoya Bloom [facility] Note Date/Time March 27, 2025 8:58 pm [facility] [address] [address] OFFICE VISIT Date of Service: 04/07/25 MR#: [id number] Acct: [id number] Patient: MARCELA DASH Rep #: [id number] : 2000 Provider: Dr. Katie Mcgregor DO Age/Sex: 24/F [place] [facility] [place] Signed Intake Vital Signs 02/12/25 11:47 03/25/25 10:57 Height 5 ft 2 in 5 ft 2 in Weight: 139 lb BMI 25.4 BP 110/70 Blood Pressure Location Lt brachial Position Sitting Intake Visit Reasons: *EST* NOB LMP 01/28, STEFFANIE 11/04 Chief Complaint: Discuss letrozole Banquet Food Server Required: No Accompanied by: Is patient in pain?: No Allergies No Known Allergies Allergy (Verified 03/25/25 10:58) Medications ?Medication ?Instructions ?Recorded ?Confirmed ?Type PNV 153-FA 400 mcg-om3 35 mg-dha tab PO 03/25/2503/25 History 25 mg-epa 5 mg-fish oil chew tablet Is last menstrual period known: Yes Last menstrual period: 01/28/25 Post menopausal: No Patient : Yes Nurse's Note: Pt here for secondary amenorrhea. Office UPT: positive. Vitals WNL. PNOB questions completed. Problem list, allergies, and medications updated. First trimester ACOG education completed. Nursing Note patient is here for amenorrhea and a test and orientation to our practice. Assessment and Plan Assessment and Plan (1) Amenorrhea: Status: Acute Comment: +UPT Orders: Orders CBC W/Diff, Automated 03/25/25 Z34.90 - Encounter for supervision of normal , unspecified, unspecified trimester Type & Screen 03/25/25 Z34.90 - Encounter for supervision of normal , unspecified, unspecified trimester Rubella IgG 03/25/25 Z34.90 - Encounter for supervision of normal , unspecified, unspecified trimester Hepatitis C Antibody 03/25/25 Z34.90 - Encounter for supervision of normal , unspecified, unspecified trimester Hepatitis B Surface Antigen 03/25/25 Z34.90 - Encounter for supervision of normal , unspecified, unspecified trimester Culture, Urine 03/25/25 Z34.90 - Encounter for supervision of normal ,unspecified, unspecified trimester Syphilis Antibodies 03/25/25 Z34.90 - Encounter for supervision of normal , unspecified, unspecified trimester Chlamydia/GC RAMÓN aptima 03/25/25 Z34.90 - Encounter for supervision of normal , unspecified, unspecified trimester HIV 03/25/25 Z34.90 - Encounter for supervision of normal , unspecified, unspecified trimester POC Urine 03/25/25 N91.2 - Amenorrhea, unspecified 03/27/252057 <Electronically signed by Latoya Monaco DO> Date _ Latoya Mcgregor DO Cosigner Signature: Date (if applicable) CC: ~ [facility] Work Phone: 1(211) 612-365006-19-2025 [facility] [address] [place] [address] OFFICE VISIT Date of Service: 04/07/25 MR#: [id number] Acct: [id number] Patient: MARCELA DASH Rep #: [id number] : 2000 Provider: Dr. Katie Mcgregor DO Age/Sex: 24/F [place] [facility] [place]: Signed Intake Vital Signs 02/12/25 11:47 03/25/25 10:57 Height 5 ft 2 in 5 ft 2 in Weight: 139 lb BMI 25.4 BP 110/70 Blood Pressure Location Lt brachial Position Sitting Intake Visit Reasons: *EST* NOB LMP 01/28, STEFFANIE 11/04 Chief Complaint: Discuss letrozole Banquet Food Server Required: No Accompanied by: Is patient in pain?: No Allergies No Known Allergies Allergy (Verified 03/25/25 10:58) Medications ?Medication ?Instructions ?Recorded ?Confirmed ?Type PNV 153-FA 400 mcg-om3 35 mg-dha tab PO 03/25/2503/25 History 25 mg-epa 5 mg-fish oil chew tablet Is last menstrual period known: Yes Last menstrual period: 01/28/25 Post menopausal: No Patient : Yes Nurse's Note: Pt here for secondary amenorrhea. Office UPT: positive. Vitals WNL. PNOB questions completed. Problem list, allergies, and medications updated. First trimester ACOG education completed. Nursing Note patient is here for amenorrhea and a test and orientation to our practice. Assessment and Plan Assessment and Plan (1) Amenorrhea: Status: Acute Comment: +UPT Orders: Orders CBC W/Diff, Automated 03/25/25 Z34.90 - Encounter for supervision of normal , unspecified,unspecified trimester Type & Screen 03/25/25 Z34.90 - Encounter for supervision of normal , unspecified, unspecified trimester Rubella IgG 03/25/25 Z34.90 - Encounter for supervision of normal , unspecified, unspecified trimester Hepatitis C Antibody 03/25/25 Z34.90 - Encounter for supervision of normal , unspecified, unspecified trimester Hepatitis B Surface Antigen 03/25/25 Z34.90 - Encounter for supervision of normal , unspecified, unspecified trimester Culture, Urine 03/25/25 Z34.90 - Encounter for supervision of normal ,unspecified, unspecified trimester Syphilis Antibodies 03/25/25 Z34.90 - Encounter for supervision of normal , unspecified, unspecified trimester Chlamydia/GC RAMÓN aptima 03/25/25 Z34.90 - Encounter for supervision of normal , unspecified, unspecified trimester HIV 03/25/25 Z34.90 - Encounter for supervision of normal , unspecified, unspecified trimester POC Urine 03/25/25 N91.2 - Amenorrhea, unspecified 03/27/252057 e Merle DO> Date _ Latoya Mcgregor DO [facility] Signature: Date (if applicable) CC: ~ [facility]05-22-2025 Evaluation note* Diagnosis Onset Date Resolution Status Admit Date Dysuria resolved February 27, 2025 3:59pm Anxiety acute April 03 8:36am acute April 03 8:36am Supervision of normal acute April 03, 2025 8:36am Vaginal bleeding during acute April 03, 2025 8:36am Anxiety acute April 07 1:03pm acute April 07 1:03pm Supervision of normal acute April 07, 2025 1:03pm Vaginal bleeding during acute April 07, 2025 1:03pm Amenorrhea resolved April 07 1:03pm Anxiety acute May 07 10:45am acute May 07 10:45am Supervision of normal acute May 07, 2025 10:45am Vaginal bleeding during acute May 07, 2025 10:45am Anxiety acute June 04, 025 12:52pm Infertility acute June 04, 2025 12:52pm acute June 04 025 12:52pm Supervision of normal acute June 04 12:52pm Vaginal bleeding during acute June 04 12:52pm Anxiety acute June 8:36am Infertility acute June 8:36am acute June 8:36am Supervision of normal acute June 23, 2025 8:36am Vaginal bleeding during acute June 23, 2025 8:36am [facility] Work Phone: 1(714) 623-209105-07-2025 Evaluation note* Diagnosis Onset Date Resolution Status Admit Date Infertility associated with anovulation acute February 12, 2025 11 :38am PCOS (polycystic ovarian syndrome) a cute February 12, 2025 11:38am [facility] Work Phone: 1(481) 591-602205-07-2025 Evaluation note* Diagnosis Onset Date Resolution Status Admit Date Infertility associated with anovulation acute February 12, 2025 11 :38am PCOS (polycystic ovarian syndrome) a cute February 12, 2025 11:38am Dysuria acute February 27, 2025 3:59pm [facility] Work Phone: 1(238) 286-206005-07-2025 Evaluation note* Diagnosis Onset Date Resolution Status Admit Date Infertility associated with anovulation resolved February 12, 2025 11 :38am PCOS (polycystic ovarian syndrome) resolved February 12, 2025 11 :38am Dysuria resolved February 27, 2025 3:59pm Anxiety acute April 03 8:36am acute April 03 8:36am Supervision of normal acut e April 03, 2025 8:36am Vaginal bleeding during acute April 03, 2025 8:36am [facility] Work Phone: 1(486) 788-730505-07-2025 Evaluation note* Diagnosis Onset Date Resolution Status Admit Date Infertility associated with anovulation resolved February 12, 2025 11 :38am PCOS (polycystic ovarian syndrome) resolved February 12, 2025 11 :38am Dysuria resolved February 27, 2025 3:59pm Anxiety acute April 03 8:36am acute April 03 8:36am Supervision of normal acut e April 03, 2025 8:36am Vaginal bleeding during acute April 03, 2025 8:36am Anxiety acute April 07 1:03pm acute April 07 1:03pm Supervision of normal acut e April 07, 2025 1:03pm Vaginal bleeding during acute April 07, 2025 1:03pm Amenorrhea resolved April 07 1:03pm [facility] Work Phone: 1([phone]) 464-546205-07-2025 Evaluation note* Diagnosis Onset Date Resolution Status Admit Date Infertility associated with anovulation resolved February 12, 2025 11 :38am PCOS (polycystic ovarian syndrome) resolved February 12, 2025 11 :38am Dysuria resolved February 27, 2025 3:59pm Anxiety acute April 03 8:36am acute April 03 8:36am Supervision of normal acute April 03, 2025 8:36am Vaginal bleeding during acute April 03, 2025 8:36am Anxiety acute April 07 1:03pm acute April 07 1:03pm Supervision of normal acute April 07, 2025 1:03pm Vaginal bleeding during acute April 07, 2025 1:03pm Amenorrhea resolved April 07 1:03pm Anxiety acute May 07 10:45am acute May 07 10:45am Supervision of normal acute May 07, 2025 10:45am Vaginal bleeding during acute May 07, 2025 10:45am [facility] Work Phone: 1(704) 777-958005-07-2025 Evaluation note* Diagnosis Onset Date Resolution Status Admit Date Infertility associated with anovulation resolved February 12, 2025 11 :38am PCOS (polycystic ovarian syndrome) resolved February 12, 2025 11 :38am Dysuria resolved February 27, 2025 3:59pm Anxiety acute April 03 8:36am acute April 03 8:36am Supervision of normal acute April 03, 2025 8:36am Vaginal bleeding during acute April 03, 2025 8:36am Anxiety acute April 07 1:03pm acute April 07 1:03pm Supervision of normal acute April 07, 2025 1:03pm Vaginal bleeding during acute April 07, 2025 1:03pm Amenorrhea resolved April 07 1:03pm Anxiety acute May 07 10:45am acute May 07 10:45am Supervision of normal acute May 07, 2025 10:45am Vaginal bleeding during acute May 07, 2025 10:45am Anxiety acute June 04, 025 12:52pm Infertility acute June 04, 2025 12:52pm acute June 04 025 12:52pm Supervision of normal acute June 04 12:52pm Vaginal bleeding during acute June 04 12:52pm [facility] Work Phone: 1(801) 253-671405-05-2025 Radiology Diagnostic study note [facility] Imaging Services [address] [place] [address] Salpingogram MR#: [id number] Acct: [id number] Name: MARCELA ZAMARRIPA Rep #: [id number] : 2000 F 24 From: Francisca Cabral MD PCP: Dr. Tereza Lynch MD Status: REG CLI Study:Salpingogram Date of Exam: 5 Exam# [id number] Ordering Dr: Katy Mcneil CANE CUTTER CANE CUTTER-C PROCEDURE: SALPINGOGRAM 02/05/2025 REASON FOR EXAM: INFERTILITY TECHNIQUE: One (1) Cine series/run COMPARISON: No relevant prior. FINDINGS: Uterus: Balloon tipped catheter seen in the lower uterine segment. No abnormal intrauterine filling defects. No uterine cornua abnormalities. Fallopian tubes: Normal caliber. Prompt spillage of contrast from the fallopiantubes. Fluoroscopy: 39 sec Dose: 4.93 mGy RAD/Salpingogram IMPRESSION: 1. Normal hysterosalpingogram. Reading Location: [facility] CC: HAYDEN Mcneil; Dr. Tereza Lynch MD ~ 911 Operator: Signed [facility]04-30-2025 Procedure note [facility] Medical Records Department [address] [place] [address] Procedure Report 02/05/25 1231 MR#: [id number] Acct: [id number] Name: MARCELA ZAMARRIPA Rep #:[id number] : 2000 24 From: Latoya Mcgregor DO PCP: Dr. Tereza Lynch MD Status:REG CLI Location: RAD Multi Select Codes Urinary/Genital Urinary/Genital CPT Codes: 12085 HSG/SIS Non-invasive Procedural Procedure Information Date of Procedure: 02/05/25 Pre-Procedure Diagnosis: infertility Post-Procedure Diagnosis: infertility Procedure Performed:: hysterosalpingogram health education aide: No Description of procedure: Preop diagnosis: Infertility Postop diagnosis:Infertility , bilateral tubal patency Procedure: Hysterosalpingogram Surgeon:Latoya Mcgregor DO Implantable devices: None Complications: None Findings: Bilateral tubal patency and normal uterine cavity Operative details: Patient was taken to the x-ray room and was placed on the x- ray table and was inthe dorsal lithotomy position. Speculum was placed in the vagina and the cervix prepped with Betadine and the HSG catheter was easily introduced into the uterus and speculum removed. Radiologist was brought in andwhile pushing radiopaque dye into the uterus via the HSG catheter the radiologist tookmultiple images and views and confirmed bilateral tubal patency seen. No gross uterine filling defects or abnormalities were seen. All instruments removed from the vagina and the uterus without complication. Patient tolerated the procedure well. Procedure findings: it appears that there are patent bilateral fallopian tubes, normal uterus, normal cervix. Complications Complications: No 02/05/25 1248 Cosigner Signature (if applicable): CC: HAYDEN Mcneil; Dr. Tereza Lynch MD; Dr. Latoya Mcgregor, DO~ Signed [facility]12-18-2024 Evaluation note* Diagnosis Onset Date Resolution Status Admit Date Establishing care with new doctor, encounter for noneactive September 082023 8:55am Influenza vaccination declined noneactive September 25, 2 024 8:55am Infertility noneactive September 8:55am Annual physical exam noneactive Dece mber 2023 8:55am [facility] Work Phone: 1([phone]) 268-310509-02-2022 History of Present illness Narrative* Keturah Barreto PA-C - 06/10/2022 7:45 PM EDT Subjective Patient ID: Marcela Dash is a 21 y.o. female. Patient presents with increased urinary urgency and frequency. She has small amounts of urine come out. She has some dysuria now as well. Denies fever, low back pain. Symptoms initially started last week and temporarily improved but then returned today. The following portions of the chart were reviewed this encounter and updated as appropriate: Review of Systems Genitourinary: Positive for dysuria and urgency. Negative for flank pain. Objective Physical Exam Vitals and nursing note reviewed. Constitutional: General: She is not in acute distress. Appearance: She is not toxic-appearing. HENT: Head: Normocephalic and atraumatic. Eyes: Conjunctiva/sclera: Conjunctivae normal. Cardiovascular: Rate and Rhythm: Normal rate and regular rhythm. Heart sounds: Normal heart sounds. Pulmonary: Effort: Pulmonary effort is normal. No respiratory distress. Breath sounds: Normal breath sounds. Abdominal: General: There is no distension. Tenderness: There is no right CVA tenderness or left CVA tenderness. Skin: General: Skin is warm and dry. Neurological: General: No focal deficit present. Mental Status: She is alert and oriented to person, place, and time. Procedures Assessment/Plan Diagnoses and all orders for this visit: Dysuria - POCT urinalysis dipstick manually resulted Urinary urgency Other orders - nitrofurantoin, macrocrystal-monohydrate, (Macrobid) 100 mg capsule; Take 1 capsule (100 mg total) by mouth every 12 (twelve) hours for 5 days. - phenazopyridine (Pyridium) 200 mg tablet; Take 1 tablet (200 mg total) by mouth 3 (three) times aday with meals for 3 days. * Juana Sanford LPN - 06/10/2022 7:45 PM EDT Pt presents c/o urinary frequency and pressure for about 2 days. Denies NVD or lower back pain. [facility] Instructions* Patient Instructions* Keturah Barreto PA-C - 06/10/2022 7:45 PM EDT Images from the original note were not included. Patient Education Urinary Tract Infection (UTI; Lower UTI) Definition A urinary tract infection (UTI) is an infection in any part of the urinary system including: Upper tract: ? Kidneys ? Ureter tubes from kidneys to bladder Lower tract: ? Bladder ? Urethra tubes from bladder that lets urine pass out of the body The infection can cause swelling in the tract. This makes it painful to pass urine. The infection may be named for the specific area of the urinary tract that it effects: Uretheral infection urethritis Bladder infection cystitis Kidney infection pyelonephritis The Urinary Tract Copyright 2002 [employer] All rights reserved. Causes UTIs are caused by bacteria. The bacteria cling to the opening of the urethra. There they begin to grow and spread. The infection can then move up into the bladder. If the infection is not treated itcan spread to the kidney. It can then lead to a severe kidney infection. The bacteria often come from the colon or vagina. They are passed or moved toward the urethra. Risk Factors UTIs are more common in women. Other things that may increase your chance of a UTI include: Being sexually active Use of spermicide New sexual partner History of UTIs in sister, mother, or daughter Some conditions may increase the chance of a UTI: Diabetes Weak immune system Menopause Bladder catheter in place or recently used Neurogenic bladder Renal insufficiency Kidney stones Problems in the urinary tract that slow the flow of urine, such as vesicoureteral reflux or polycystic kidneys History of kidney transplant Tumor Symptoms Some may not have any symptoms. Those that do have symptoms may have: Urgent need to urinate Small amounts of urine during urination Pain in the abdomen or pelvic area Burning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 Admit Date Infertility associated with anovulation February 12, 2025 11:38am PCOS (polycystic ovarian syndrome) February 122024 11:38am Chief Complaint Admit Date [facility] November 21, 2024 11:06am NO ORDER November 25, 2024 9:00am INT LAB ORDER December 23, 2024 8:5 8am EORDER-NO ORDER-PT CALLING January 21 9:36am INFERTILITY February 05, 2025 11: 56am INFERTILITY February 05, 2025 12: 31pm Discuss Letrozole *copay $February 12 11:38am POSSIBLE UTI February 27, 2025 3:59p m Reason for Visit Admit Date Infertility associated with anovulation February 12, 2025 11:38am PCOS (polycystic ovarian syndrome) February 122024 11:38am Dysuria February 27, 2025 3:59p m Chief Complaint Admit Date NO ORDER November 25, 2024 9:00am INT LAB ORDER December 23, 2024 8:5 8am EORDER-NO ORDER-PT CALLING January 21 9:36am INFERTILITY February 05, 2025 11: 56am INFERTILITY February 05, 2025 12: 31pm Discuss Letrozole *copay $February 12 11:38am POSSIBLE UTI February 27, 2025 3:59p m PNOB Confirm , Vitals March 9:51am Chief Complaint Admit Date INT LAB ORDER December 23, 2024 8:5 8am EORDER-NO ORDER-PT CALLING January 21 9:36am INFERTILITY February 05, 2025 11: 56am INFERTILITY February 05, 2025 12: 31pm Discuss Letrozole *copay $February 12 11:38am POSSIBLE UTI February 27, 2025 3:59p m PNOB Confirm , Vitals March 9:51am Early OB spotting April 03, 2025 8:36 am Reason for Visit Admit Date Infertility associated with anovulation February 12, 2025 11:38am PCOS (polycystic ovarian syndrome) February 122024 11:38am Dysuria February 27, 2025 3:59p m Anxiety April 03, 2025 8:36 am April 03, 2025 8:36 am Supervision of normal March 8:36am Vaginal bleeding during March 102024 8:36am Chief Complaint Admit Date INT LAB ORDER December 23, 2024 8:5 8am EORDER-NO ORDER-PT CALLING January 21 9:36am INFERTILITY February 05, 2025 11: 56am INFERTILITY February 05, 2025 12: 31pm Discuss Letrozole *copay $February 12 11:38am POSSIBLE UTI February 27, 2025 3:59p m PNOB Confirm , Vitals March 9:51am Early OB spotting April 03, 2025 8:36 am *EST* NOB LMP 01/28, STEFFANIE 11/04April 07, 2025 1:03pm Reason for Visit Admit Date Infertility associated with anovulation February 12, 2025 11:38am PCOS (polycystic ovarian syndrome) February 122024 11:38am Dysuria February 27, 2025 3:59p m Anxiety April 03, 2025 8:36 am April 03, 2025 8:36 am Supervision of normal March 8:36am Vaginal bleeding during March 102024 8:36am Anxiety April 07, 2025 1:03 pm April 07, 2025 1:03 pm Supervision of normal March 1:03pm Vaginal bleeding during March 112024 1:03pm Amenorrhea April 07, 2025 1:03 pm Chief Complaint Admit Date INT LAB ORDER December 23, 2024 8:5 8am EORDER-NO ORDER-PT CALLING January 21 9:36am INFERTILITY February 05, 2025 11: 56am INFERTILITY February 05, 2025 12: 31pm Discuss Letrozole *copay $20 February 12 11:38am POSSIBLE UTI February 27, 2025 3:59p m PNOB Confirm , Vitals March 9:51am Early OB spotting April 03, 2025 8:36 am *EST* NOB LMP 01/28, STEFFANIE 11/04April 07, 2025 1:03pm AUB April 15, 2025 10:59 am Chief Complaint Admit Date EORDER-NO ORDER-PT CALLING January 21 9:36am INFERTILITY February 05, 2025 11: 56am INFERTILITY February 05, 2025 12: 31pm Discuss Letrozole *copay $February 12 11:38am POSSIBLE UTI February 27, 2025 3:59p m PNOB Confirm , Vitals March 9:51am Early OB spotting April 03, 2025 8:36 am *EST* NOB LMP 01/28, STEFFANIE 11/04April 07, 2025 1:03pm AUB April 15, 2025 10:59 am 12 wk ob May 07, 2025 10:4 5am Reason for Visit Admit Date Infertility associated with anovulation February 12, 2025 11:38am PCOS (polycystic ovarian syndrome) February 122024 11:38am Dysuria February 27, 2025 3:59p m Anxiety April 03, 2025 8:36 am April 03, 2025 8:36 am Supervision of normal March 8:36am Vaginal bleeding during March 102024 8:36am Anxiety April 07, 2025 1:03 pm April 07, 2025 1:03 pm Supervision of normal March 1:03pm Vaginal bleeding during March 112024 1:03pm Amenorrhea April 07, 2025 1:03 pm Anxiety May 07, 2025 10:4 5am May 07, 2025 10:4 5am Supervision of normal April 10:45am Vaginal bleeding during April 102024 10:45am Chief Complaint Admit Date INFERTILITY February 05, 2025 11: 56am INFERTILITY February 05, 2025 12: 31pm Discuss Letrozole *copay $20 February 12 11:38am POSSIBLE UTI February 27, 2025 3:59p m PNOB Confirm , Vitals March 9:51am Early OB spotting April 03, 2025 8:36 am *EST* NOB LMP 01/28, STEFFANIE 11/04April 07, 2025 1:03pm AUB April 15, 2025 10:59 am 14 wk ob May 07, 2025 10:4 5am 18 WK OB June 04, 2025 12 :52pm Reason for Visit Admit Date Infertility associated with anovulation February 12, 2025 11:38am PCOS (polycystic ovarian syndrome) February 122024 11:38am Dysuria February 27, 2025 3:59p m Anxiety April 03, 2025 8:36 am April 03, 2025 8:36 am Supervision of normal March 8:36am Vaginal bleeding during March 102024 8:36am Anxiety April 07, 2025 1:03 pm April 07, 2025 1:03 pm Supervision of normal March 1:03pm Vaginal bleeding during March 112024 1:03pm Amenorrhea April 07, 2025 1:03 pm Anxiety May 07, 2025 10:4 5am May 07, 2025 10:4 5am Supervision of normal April 10:45am Vaginal bleeding during April 102024 10:45am Anxiety June 04, 2025 12 :52pm Infertility June 04, 2025 12 :52pm June 04, 2025 12 :52pm Supervision of normal May 102024 12:52pm Vaginal bleeding during June 04, 2025 12:52pm Chief Complaint Admit Date POSSIBLE UTI February 27, 2025 3:59p m PNOB Confirm , Vitals March 9:51am Early OB spotting April 03, 2025 8:36 am *EST* NOB LMP 01/28, STEFFANIE 11/04April 07, 2025 1:03pm AUB April 15, 2025 10:59 am 14 wk ob May 07, 2025 10:4 5am 18 WK OB June 04, 2025 12 :52pm cervical length/anatomy June 18, 2025 3:20pm OB Increased heart rate, palpitations Se ptember 2024 8:36am Reason for Visit Admit Date Dysuria February 27, 2025 3:59p m Anxiety April 03, 2025 8:36 am April 03, 2025 8:36 am Supervision of normal March 8:36am Vaginal bleeding during March 102024 8:36am Anxiety April 07, 2025 1:03 pm April 07, 2025 1:03 pm Supervision of normal March 1:03pm Vaginal bleeding during March 112024 1:03pm Amenorrhea April 07, 2025 1:03 pm Anxiety May 07, 2025 10:4 5am May 07, 2025 10:4 5am Supervision of normal April 10:45am Vaginal bleeding during April 102024 10:45am Anxiety June 04, 2025 12 :52pm Infertility June 04, 2025 12 :52pm June 04, 2025 12 :52pm Supervision of normal May 102024 12:52pm Vaginal bleeding during June 04, 2025 12:52pm Anxiety June 23, 2025 8:36am Infertility June 23, 2025 8:36am June 23, 2025 8:36am Supervision of normal [facility] 2024 8:36am Vaginal bleeding during Septem 2024 8:36am Chief Complaint Admit Date PNOB Confirm , Vitals March 9:51am Early OB spotting April 03, 2025 8:36 am *EST* NOB LMP 01/28, STEFFANIE 11/04April 07, 2025 1:03pm AUB April 15, 2025 10:59 am 14 wk ob May 07, 2025 10:4 5am 18 WK OB June 04, 2025 12 :52pm cervical length/anatomy June 18, 2025 3:20pm OB Increased heart rate, palpitations Se pt2024 8:36am TACHYCARDIA June 23, 2025 10:31am TACHYCARDIA June 23, 2025 10:42am 22 WK OB July 02, 2025 1:44pm Reason for Visit Admit Date Supervision of normal March 8:36am Vaginal bleeding during March 102024 8:36am Supervision of normal March 1:03pm Vaginal bleeding during March 112024 1:03pm Amenorrhea April 07, 2025 1:03 pm Supervision of normal April 10:45am Vaginal bleeding during April 102024 10:45am Infertility June 04, 2025 12 :52pm Supervision of normal May 102024 12:52pm Vaginal bleeding during June 04, 2025 12:52pm Infertility June 23, 2025 8:36am Palpitation June 23, 2025 8:36am [facility] 8:[facility] Vaginal bleeding during Junem 2024 8:36am Anxiety July 02, 2025 1:44pm Infertility July 02, 2025 1:44pm Palpitation July 02, 2025 1:44pm July 02, 2025 1:44pm Supervision of normal [facility] r 2024 1:44pm Vaginal bleeding during Junem 2024 1:44pm Chief Complaint Admit Date 14 wk ob May 07, 2025 10:4 5am 18 WK OB June 04, 2025 12 :52pm cervical length/anatomy June 18, 2025 3:20pm OB Increased heart rate, palpitations Se ptember 2024 8:36am TACHYCARDIA June 23, 2025 10:31am TACHYCARDIA June 23, 2025 10:42am 22 WK OB July 02, 2025 1:44pm 26wk ob/glucose July 30, 2025 9 :34am [employer] [facility] August 01, 2025 8 :27am SCREEN FOR GESTATIONAL DM August 06, 2025 6:46am GDM August 13, 2025 9 :17am 28w 1d ob August 14, 2025 1 0:18am Reason for Visit Admit Date Supervision of normal April 10:45am Vaginal bleeding during April 102024 10:45am Infertility June 04, 2025 12 :52pm Supervision of normal May 102024 12:52pm Vaginal bleeding during June 04, 2025 12:52pm Infertility June 23, 2025 8:36am Palpitation June 23, 2025 8:36am Supervision of normal [facility] r 2024 8:36am Vaginal bleeding during Jun 2024 8:36am Anxiety July 02, 2025 1:44pm Infertility July 02, 2025 1:44pm Palpitation July 02, 2025 1:44pm July 02, 2025 1:44pm Supervision of normal [facility] r 2024 1:44pm Vaginal bleeding during 2024 1:44pm Anxiety July 30, 2025 9 :34am Infertility July 30, 2025 9 :34am Palpitation July 30, 2025 9 :34am July 30, 2025 9 :34am Supervision of normal July 30, 2025 9:34am Anxiety August 14, 2025 1 0:18am Gestational diabetes mellitus August 142024 10:18am Infertility August 14, 2025 1 0:18am Palpitation August 14, 2025 1 0:18am August 14, 2025 1 0:18am Supervision of normal August 14, 2025 10:18am Additional Source Comments INFORMATION SOURCE (unrecogn ized section and content) DATE CREATED AUTHOR 11/07/2021 [facility] DATE CREATED AUTHOR AUTHOR'S ORGANIZ ATION 12/15/2021 [facility] DATE CREATED AUTHOR AUTHOR'S ORGANIZ ATION 06/11/2022 [facility] DATE CREATED AUTHOR AUTHOR'S ORGANIZ ATION 06/23/2025 [facility] DATE CREATED AUTHOR AUTHOR'S ORGANIZ ATION 07/28/2025 [facility] DATE CREATED AUTHOR AUTHOR'S ORGANIZ ATION 08/21/2025 [facility] Source Comments (unrecognize d section and content) In the event this informatio n is protected by the Federal Confidentiality of Alcohol and Drug Abuse Patient Records regulations: The Federal rules restrict any use of the information to criminally investigate or prosecute any alcohol or drug abuse patient.[facility] Reason for Visit (unrecogniz ed section and content) Reason Onset Date Comments Refill Request 01/10/2022 Reason Comments Urinary Problem Care Teams (unrecognized sec tion and content) Team Status: Active Member Role Status Dates No Primary Care Physician Primary Care Provider Active Team Status: Inactive Member Role Status Dates LAITH Weathers Attending Provider Active Team Status: Inactive Member Role Status Dates No Primary Care Physician Primary Care Provider Active LAITH Weathers Attending Provider, Referring Pr ovider Active Team Status: Active Member Role Status Dates Dr. Tereza Lynch MD Primary Care Provider Active Team Status: Inactive Member Role Status Dates No Primary Care Physician Primary Care Provider Active Start: September 20, 2024 End: September 20, 2024 Katy Mcneil CANE CUTTER, CANE CUTTER-C Attending Provider Active Start: September 20, 2024 End: September 20, 2024 Katy Mcneil CANE CUTTER, CANE CUTTER-C Referring Provider Active Start: September 20, 2024 End: September 20, 2024 Team Status: Inactive Member Role Status Dates No Primary Care Physician Primary Care Provider Active Start: September 25, 2024 End: September 25, 2024 No Primary Care Physician Referring Provider Active Start: September 25, 2024 End: September 25, 2024 Dr. Tereza Lynch MD Attending Provider Active Start: September 25, 2024 End: September 25, 2024 Team Status: Inactive Member Role Status Dates No Primary Care Physician Primary Care Provider Active Start: October 22, 2024 End: October 22, 2024 Katy Mcneil CANE CUTTER, CANE CUTTER-C Attending Provider Active Start: October 22, 2024 End: October 22, 2024 Katy Mcneil CANE CUTTER, CANE CUTTER-C Referring Provider Active Start: October 22, 2024 End: October 22, 2024 Team Status: Inactive Member Role Status Dates Dr. Darron Wong DO Attending Provider Active Start : November 21, 2024 End: November 21, 2024 Dr. Darron Wong DO Emergency Provider Active Start : November 21, 2024 End: November 21, 2024 Dr. Tereza Lynch MD Primary Care Provider Active Start: November 21, 2024 End: November 21, 2024 Team Status: Inactive Member Role Status Dates Dr. Tereza Lynch MD Primary Care Provider Active Start: November 25, 2024 End: November 25, 2024 Katy Mcneil CANE CUTTER, CANE CUTTER-C Attending Provider Active Start: November 25, 2024 End: November 25, 2024 aKty Mcneil CANE CUTTER, CANE CUTTER-C Referring Provider Active Start: November 25, 2024 End: November 25, 2024 Team Status: Inactive Member Role Status Dates Dr. Tereza Lynch MD Primary Care Provider Active Start: December 23, 2024 End: December 23, 2024 Katy Nazareth CANE CUTTER, CANE CUTTER-C Attending Provider Active Start: December 23, 2024 End: December 23, 2024 Katy Mcneil CANE CUTTER, CANE CUTTER-C Referring Provider Active Start: December 23, 2024 End: December 23, 2024 Team Status: Inactive Member Role Status Dates Dr. Tereza Lynch MD Primary Care Provider Active Start: January 21, 2025 End: January 21, 2025 Katy Mcneil CANE CUTTER, CANE CUTTER-C Attending Provider Active Start: January 21, 2025 End: January 21, 2025 Katy Mcneil CANE CUTTER, CANE CUTTER-C Referring Provider Active Start: January 21, 2025 End: January 21, 2025 Team Status: Inactive Member Role Status Dates Dr. Tereza Lynch MD Primary Care Provider Active Start: February 05, 2025 End: February 05, 2025 Katy Mcneil CANE CUTTER, CANE CUTTER-C Attending Provider Active Start: February 05, 2025 End: February 05, 2025 Katy Mcneil CANE CUTTER, CANE CUTTER-C Referring Provider Active Start: February 05, 2025 End: February 05, 2025 Team Status: Active Member Role Status Dates Dr. Tereaz Lynch MD Primary Care Provider Active Start: February 05, 2025 Katy Mcneil CANE CUTTER, CANE CUTTER-C Referring Provider Active Start: February 05, 2025 Katy Mcneil CANE CUTTER, CANE CUTTER-C Other Provider Active St art: February 05, 2025 Dr. Latoya Mcgregor DO Attending Provider Activ e Start: February 05, 2025 Team Status: Inactive Member Role Status Dates Dr. Tereza Lynch MD Primary Care Provider Active Start: February 12, 2025 End: February 12, 2025 Dr. Tereza Lynch MD Referring Provider Active Start: February 12, 2025 End: February 12, 2025 Katy Mcneil CANE CUTTER, CANE CUTTER-C Attending Provider Active Start: February 12, 2025 End: February 12, 2025 Team Status: Inactive Member Role Status Dates Dr. Tereza Lynch MD Primary Care Provider Active Start: February 27, 2025 End: February 27, 2025 Dr. Tereza Lynch MD Referring Provider Active Start: February 27, 2025 End: February 27, 2025 LAITH Lezama Attending Provider Active Sta rt: February 27, 2025 End: February 27, 2025 Team Status: Inactive Member Role Status Dates Dr. Tereza Lynch MD Primary Care Provider Active Start: February 27, 2025 End: February 27, 2025 LAITH Lezama Attending Provider Active Sta rt: February 27, 2025 End: February 27, 2025 Team Status: Inactive Member Role Status Dates Dr. Tereza Lynch MD Primary Care Provider Active Start: March 25, 2025 End: March 25, 2025 Dr. Tereza Lynch MD Referring Provider Active Start: March 25, 2025 End: March 25, 2025 Dr. Latoya Mcgregor DO Attending Provider Activ e Start: March 25, 2025 End: March 25, 2025 Team Status: Inactive Member Role Status Dates Dr. Tereza Lynch MD Primary Care Provider Active Start: April 03, 2025 End: April 03, 2025 Dr. Tereza Lynch MD Referring Provider Active Start: April 03, 2025 End: April 03, 2025 Dr. Arabella Orellana MD Attending Provider Active Start: April 03, 2025 End: April 03, 2025 Team Status: Active Member Role Status Dates Dr. Tereza Lynch MD Primary Care Provider Active Start: April 03, 2025 Dr. Arabella Orellana MD Attending Provider Active Start: April 03, 2025 Dr. Arabella Orellana MD Referring Provider Active Start: April 03, 2025 Team Status: Active Member Role/Relationship Status Dates Dr. Tereza Lynch MD Primary Care Provider Active Team Status: Inactive Member Role/Relationship Status Dates Dr. Tereza Lynch MD Primary Care Provider Active Start: December 23, 2024 End: December 23, 2024 Katy Mcneil CANE CUTTER, CANE CUTTER-C Attending Provider Active Start: December 23, 2024 End: December 23, 2024 Katy Mcneil CANE CUTTER, CANE CUTTER-C Referring Provider Active Start: December 23, 2024 End: December 23, 2024 Team Status: Inactive Member Role/Relationship Status Dates Dr. Tereza Lynch MD Primary Care Provider Active Start: January 21, 2025 End: January 21, 2025 Katy Mcneil CANE CUTTER, CANE CUTTER-C Attending Provider Active Start: January 21, 2025 End: January 21, 2025 Katy Mcneil CANE CUTTER, CANE CUTTER-C Referring Provider Active Start: January 21, 2025 End: January 21, 2025 Team Status: Inactive Member Role/Relationship Status Dates Dr. Tereza Lynch MD Primary Care Provider Active Start: February 05, 2025 End: February 05, 2025 Katy Mcneil CANE CUTTER, CANE CUTTER-C Attending Provider Active Start: February 05, 2025 End: February 05, 2025 Katy Mcneil CANE CUTTER, CANE CUTTER-C Referring Provider Active Start: February 05, 2025 End: February 05, 2025 Team Status: Active Member Role/Relationship Status Dates Dr. Tereza Lynch MD Primary Care Provider Active Start: February 05, 2025 Katy Mcneil CANE CUTTER, CANE CUTTER-C Referring Provider Active Start: February 05, 2025 Katy Mcneil CANE CUTTER, CANE CUTTER-C Other Provider Active St art: February 05, 2025 Dr. Latoya Mcgregor DO Attending Provider Activ e Start: February 05, 2025 Team Status: Inactive Member Role/Relationship Status Dates Dr. Tereza Lynch MD Primary Care Provider Active Start: February 12, 2025 End: February 12, 2025 Dr. Tereza Lynch MD Referring Provider Active Start: February 12, 2025 End: February 12, 2025 Katy Mcneil CANE CUTTER, CANE CUTTER-C Attending Provider Active Start: February 12, 2025 End: February 12, 2025 Team Status: Inactive Member Role/Relationship Status Dates Dr. Tereza Lynch MD Primary Care Provider Active Start: February 27, 2025 End: February 27, 2025 Dr. Tereza Lynch MD Referring Provider Active Start: February 27, 2025 End: February 27, 2025 Al OZUNA PA Attending Provider Active Sta rt: February 27, 2025 End: February 27, 2025 Team Status: Inactive Member Role/Relationship Status Dates Dr. Tereza Lynch MD Primary Care Provider Active Start: February 27, 2025 End: February 27, 2025 LAITH Lezama Attending Provider Active Sta rt: February 27, 2025 End: February 27, 2025 Team Status: Inactive Member Role/Relationship Status Dates Dr. Tereza Lynch MD Primary Care Provider Active Start: March 25, 2025 End: March 25, 2025 Dr. Tereza Lynch MD Referring Provider Active Start: March 25, 2025 End: March 25, 2025 Dr. Latoya Mcgregor DO Attending Provider Activ e Start: March 25, 2025 End: March 25, 2025 Team Status: Inactive Member Role/Relationship Status Dates Dr. Tereza Lynch MD Primary Care Provider Active Start: April 03, 2025 End: April 03, 2025 Dr. Tereza Lynch MD Referring Provider Active Start: April 03, 2025 End: April 03, 2025 Dr. Arabella Orellana MD Attending Provider Active Start: April 03, 2025 End: April 03, 2025 Team Status: Active Member Role/Relationship Status Dates Dr. Tereza Lynch MD Primary Care Provider Active Start: April 03, 2025 Dr. Arabella Orellana MD Attending Provider Active Start: April 03, 2025 Dr. Arabella Orellana MD Referring Provider Active Start: April 03, 2025 Team Status: Inactive Member Role/Relationship Status Dates Dr. Tereza Lynch MD Primary Care Provider Active Start: April 07, 2025 End: April 07, 2025 Dr. Tereza Lynch MD Referring Provider Active Start: April 07, 2025 End: April 07, 2025 Dr. Latoya Mcgregor DO Attending Provider Activ e Start: April 07, 2025 End: April 07, 2025 Team Status: Inactive Member Role/Relationship Status Dates Dr. Tereza Lynch MD Primary Care Provider Active Start: April 03, 2025 End: April 03, 2025 Dr. Arabella Orellana MD Attending Provider Active Start: April 03, 2025 End: April 03, 2025 Dr. Arabella Orellana MD Referring Provider Active Start: April 03, 2025 End: April 03, 2025 Team Status: Active Member Role/Relationship Status Dates Dr. Tereza Lynch MD Primary Care Provider Active Start: April 07, 2025 Dr. Latoya Mcgregor DO Attending Provider Activ e Start: April 07, 2025 Dr. Latoya Mcgregor , Referring Provider Activ e Start: April 07, 2025 Team Status: Inactive Member Role/Relationship Status Dates Dr. Tereza Lynch MD Primary Care Provider Active Start: April 07, 2025 End: April 07, 2025 Dr. Latoya Mcgregor , Attending Provider Activ e Start: April 07, 2025 End: April 07, 2025 Dr. Latoya Mcgregor DO Referring Provider Activ e Start: April 07, 2025 End: April 07, 2025 Team Status: Inactive Member Role/Relationship Status Dates Dr. Tereza Lynch MD Primary Care Provider Active Start: April 15, 2025 End: April 15, 2025 Annika Lay CNM Attending Provider Active S tart: April 15, 2025 End: April 15, 2025 Annika Lay CNM Referring Provider Active S tart: April 15, 2025 End: April 15, 2025 Team Status: Inactive Member Role/Relationship Status Dates Dr. Tereza Lynch MD Primary Care Provider Active Start: January 21, 2025 End: January 21, 2025 Katy Mcneil CANE CUTTER, CANE CUTTER-C Attending Provider Active Start: January 21, 2025 End: January 21, 2025 Katy Mcneil CANE CUTTER, CANE CUTTER-C Referring Provider Active Start: January 21, 2025 End: January 21, 2025 Team Status: Inactive Member Role/Relationship Status Dates Dr. Tereza Lynch MD Primary Care Provider Active Start: February 05, 2025 End: February 05, 2025 Katy Mcneil CANE CUTTER, CANE CUTTER-C Attending Provider Active Start: February 05, 2025 End: February 05, 2025 Katy Mcneil CANE CUTTER, CANE CUTTER-C Referring Provider Active Start: February 05, 2025 End: February 05, 2025 Team Status: Active Member Role/Relationship Status Dates Dr. Tereza Lynch MD Primary Care Provider Active Start: February 05, 2025 Katy Mcneil CANE CUTTER, CANE CUTTER-C Referring Provider Active Start: February 05, 2025 Katy Mcneil CANE CUTTER, CANE CUTTER-C Other Provider Active St art: February 05, 2025 Dr. Latoya Mcgregor DO Attending Provider Activ e Start: February 05, 2025 Team Status: Inactive Member Role/Relationship Status Dates Dr. Tereza Lynch MD Primary Care Provider Active Start: February 12, 2025 End: February 12, 2025 Dr. Tereza Lynch MD Referring Provider Active Start: February 12, 2025 End: February 12, 2025 Katy Mcneil CANE CUTTER, CANE CUTTER-C Attending Provider Active Start: February 12, 2025 End: February 12, 2025 Team Status: Inactive Member Role/Relationship Status Dates Dr. Tereza Lynch MD Primary Care Provider Active Start: February 27, 2025 End: February 27, 2025 Dr. Tereza Lynch MD Referring Provider Active Start: February 27, 2025 End: February 27, 2025 Al OZUNA PA Attending Provider Active Sta rt: February 27, 2025 End: February 27, 2025 Team Status: Inactive Member Role/Relationship Status Dates Dr. Tereza Lynch MD Primary Care Provider Active Start: February 27, 2025 End: February 27, 2025 Al OZUNA PA Attending Provider Active Sta rt: February 27, 2025 End: February 27, 2025 Team Status: Inactive Member Role/Relationship Status Dates Dr. Tereza Lynch MD Primary Care Provider Active Start: March 25, 2025 End: March 25, 2025 Dr. Tereza Lynch MD Referring Provider Active Start: March 25, 2025 End: March 25, 2025 Dr. Latoya Mcgregor DO Attending Provider Activ e Start: March 25, 2025 End: March 25, 2025 Team Status: Inactive Member Role/Relationship Status Dates Dr. Tereza Lynch MD Primary Care Provider Active Start: April 03, 2025 End: April 03, 2025 Dr. Tereza Lynch MD Referring Provider Active Start: April 03, 2025 End: April 03, 2025 Dr. Arabella Orellana MD Attending Provider Active Start: April 03, 2025 End: April 03, 2025 Team Status: Inactive Member Role/Relationship Status Dates Dr. Tereza Lynch MD Primary Care Provider Active Start: April 03, 2025 End: April 03, 2025 Dr. Arabella Orellana MD Attending Provider Active Start: April 03, 2025 End: April 03, 2025 Dr. Arabella Orellana MD Referring Provider Active Start: April 03, 2025 End: April 03, 2025 Team Status: Inactive Member Role/Relationship Status Dates Dr. Tereza Lynch MD Primary Care Provider Active Start: April 07, 2025 End: April 07, 2025 Dr. Tereza Lynch MD Referring Provider Active Start: April 07, 2025 End: April 07, 2025 Dr. Latoya Mcgregor DO Attending Provider Activ e Start: April 07, 2025 End: April 07, 2025 Team Status: Inactive Member Role/Relationship Status Dates Dr. Tereza Lynch MD Primary Care Provider Active Start: April 07, 2025 End: April 07, 2025 Dr. Latoya Mcgregor DO Attending Provider Activ e Start: April 07, 2025 End: April 07, 2025 Dr. Latoya Mcgregor DO Referring Provider Activ e Start: April 07, 2025 End: April 07, 2025 Team Status: Inactive Member Role/Relationship Status Dates Dr. Tereza Lynch MD Primary Care Provider Active Start: April 15, 2025 End: April 15, 2025 Annika Lay CNM Attending Provider Active S tart: April 15, 2025 End: April 15, 2025 Annika Lay CNM Referring Provider Active S tart: April 15, 2025 End: April 15, 2025 Team Status: Inactive Member Role/Relationship Status Dates Dr. Tereza Lynch MD Primary Care Provider Active Start: May 07, 2025 End: May 07, 2025 Dr. Tereza Lynch MD Referring Provider Active Start: May 07, 2025 End: May 07, 2025 Dr. Latoya Mcgregor DO Attending Provider Activ e Start: May 07, 2025 End: May 07, 2025 Team Status: Inactive Member Role/Relationship Status Dates Dr. Tereza Lynch MD Primary Care Provider Active Start: February 05, 2025 End: February 05, 2025 Katy Mcneil CANE CUTTER, CANE CUTTER-C Attending Provider Active Start: February 05, 2025 End: February 05, 2025 Katy Mcneil CANE CUTTER, CANE CUTTER-C Referring Provider Active Start: February 05, 2025 End: February 05, 2025 Team Status: Active Member Role/Relationship Status Dates Dr. Tereza Lynch MD Primary Care Provider Active Start: February 05, 2025 Katy Mcneil CANE CUTTER, CANE CUTTER-C Referring Provider Active Start: February 05, 2025 Katy Mcneil CANE CUTTER, CANE CUTTER-C Other Provider Active St art: February 05, 2025 Dr. Latoya Mcgregor DO Attending Provider Activ e Start: February 05, 2025 Team Status: Inactive Member Role/Relationship Status Dates Dr. Tereza Lynch MD Primary Care Provider Active Start: February 12, 2025 End: February 12, 2025 Dr. Tereza Lynch MD Referring Provider Active Start: February 12, 2025 End: February 12, 2025 Katy Mcneil CANE CUTTER, CANE CUTTER-C Attending Provider Active Start: February 12, 2025 End: February 12, 2025 Team Status: Inactive Member Role/Relationship Status Dates Dr. Tereza Lynch MD Primary Care Provider Active Start: February 27, 2025 End: February 27, 2025 Dr. Tereza Lynch MD Referring Provider Active Start: February 27, 2025 End: February 27, 2025 LAITH Lezama Attending Provider Active Sta rt: February 27, 2025 End: February 27, 2025 Team Status: Inactive Member Role/Relationship Status Dates Dr. Tereza Lynch MD Primary Care Provider Active Start: February 27, 2025 End: February 27, 2025 LAITH Lezama Attending Provider Active Sta rt: February 27, 2025 End: February 27, 2025 Team Status: Inactive Member Role/Relationship Status Dates Dr. Tereza Lynch MD Primary Care Provider Active Start: March 25, 2025 End: March 25, 2025 Dr. Tereza Lynch MD Referring Provider Active Start: March 25, 2025 End: March 25, 2025 Dr. Latoya Mcgregor DO Attending Provider Activ e Start: March 25, 2025 End: March 25, 2025 Team Status: Inactive Member Role/Relationship Status Dates Dr. Tereza Lynch MD Primary Care Provider Active Start: April 03, 2025 End: April 03, 2025 Dr. Tereza Lynch MD Referring Provider Active Start: April 03, 2025 End: April 03, 2025 Dr. Arabella Orellana MD Attending Provider Active Start: April 03, 2025 End: April 03, 2025 Team Status: Inactive Member Role/Relationship Status Dates Dr. Tereza Lynch MD Primary Care Provider Active Start: April 03, 2025 End: April 03, 2025 Dr. Arabella Orellana MD Attending Provider Active Start: April 03, 2025 End: April 03, 2025 Dr. Arabella Orellana MD Referring Provider Active Start: April 03, 2025 End: April 03, 2025 Team Status: Inactive Member Role/Relationship Status Dates Dr. Tereza Lynch MD Primary Care Provider Active Start: April 07, 2025 End: April 07, 2025 Dr. Tereza Lynch MD Referring Provider Active Start: April 07, 2025 End: April 07, 2025 Dr. Latoya Mcgregor DO Attending Provider Activ e Start: April 07, 2025 End: April 07, 2025 Team Status: Inactive Member Role/Relationship Status Dates Dr. Tereza Lynhc MD Primary Care Provider Active Start: April 07, 2025 End: April 07, 2025 Dr. Latoya Mcgregor DO Attending Provider Activ e Start: April 07, 2025 End: April 07, 2025 Dr. Latoya Mcgregor DO Referring Provider Activ e Start: April 07, 2025 End: April 07, 2025 Team Status: Inactive Member Role/Relationship Status Dates Dr. Tereza Lynch MD Primary Care Provider Active Start: April 15, 2025 End: April 15, 2025 Annika Lay CNM Attending Provider Active S tart: April 15, 2025 End: April 15, 2025 Annika Lay CNM Referring Provider Active S tart: April 15, 2025 End: April 15, 2025 Team Status: Inactive Member Role/Relationship Status Dates Dr. Tereza Lynch MD Primary Care Provider Active Start: May 07, 2025 End: May 07, 2025 Dr. Tereza Lynch MD Referring Provider Active Start: May 07, 2025 End: May 07, 2025 Dr. Latoya Mcgregor , Attending Provider Activ e Start: May 07, 2025 End: May 07, 2025 Team Status: Inactive Member Role/Relationship Status Dates Dr. Tereza Lynch MD Primary Care Provider Active Start: June 04, 2025 End: June 04, 2025 Dr. Tereza Lynch MD Referring Provider Active Start: June 04, 2025 End: June 04, 2025 Katy Mcneil NP, CANE CUTTER-C Attending Provider Active Start: June 04, 2025 End: June 04, 2025 Team Status: Inactive Member Role/Relationship Status Dates Dr. Tereza Lynch MD Primary Care Provider Active Start: February 27, 2025 End: February 27, 2025 Dr. Tereza Lynch MD Referring Provider Active Start: February 27, 2025 End: February 27, 2025 LAITH Lezama Attending Provider Active Sta rt: February 27, 2025 End: February 27, 2025 Team Status: Inactive Member Role/Relationship Status Dates Dr. Tereza Lynch MD Primary Care Provider Active Start: February 27, 2025 End: February 27, 2025 LAITH Lezama Attending Provider Active Sta rt: February 27, 2025 End: February 27, 2025 Team Status: Inactive Member Role/Relationship Status Dates Dr. Tereza Lynch MD Primary Care Provider Active Start: March 25, 2025 End: March 25, 2025 Dr. Tereza Lynch MD Referring Provider Active Start: March 25, 2025 End: March 25, 2025 Dr. Latoya Mcgregor , Attending Provider Activ e Start: March 25, 2025 End: March 25, 2025 Team Status: Inactive Member Role/Relationship Status Dates Dr. Tereza Lynch MD Primary Care Provider Active Start: April 03, 2025 End: April 03, 2025 Dr. Tereza Lynch MD Referring Provider Active Start: April 03, 2025 End: April 03, 2025 Dr. Arabella Orellana MD Attending Provider Active Start: April 03, 2025 End: April 03, 2025 Team Status: Inactive Member Role/Relationship Status Dates Dr. Tereza Lynch MD Primary Care Provider Active Start: April 03, 2025 End: April 03, 2025 Dr. Arabella Orellana MD Attending Provider Active Start: April 03, 2025 End: April 03, 2025 Dr. Arabella Orellana MD Referring Provider Active Start: April 03, 2025 End: April 03, 2025 Team Status: Inactive Member Role/Relationship Status Dates Dr. Tereza Lynch MD Primary Care Provider Active Start: April 07, 2025 End: April 07, 2025 Dr. Tereza Lynch MD Referring Provider Active Start: April 07, 2025 End: April 07, 2025 Dr. Latoya Mcgregor DO Attending Provider Activ e Start: April 07, 2025 End: April 07, 2025 Team Status: Inactive Member Role/Relationship Status Dates Dr. Tereza Lynch MD Primary Care Provider Active Start: April 07, 2025 End: April 07, 2025 Dr. Latoya Mcgregor DO Attending Provider Activ e Start: April 07, 2025 End: April 07, 2025 Dr. Latoya Mcgregor DO Referring Provider Activ e Start: April 07, 2025 End: April 07, 2025 Team Status: Inactive Member Role/Relationship Status Dates Dr. Tereza Lynch MD Primary Care Provider Active Start: April 15, 2025 End: April 15, 2025 Annika Lay CNM Attending Provider Active S tart: April 15, 2025 End: April 15, 2025 Annika Lay CNM Referring Provider Active S tart: April 15, 2025 End: April 15, 2025 Team Status: Inactive Member Role/Relationship Status Dates Dr. Tereza Lynch MD Primary Care Provider Active Start: May 07, 2025 End: May 07, 2025 Dr. Tereza Lynch MD Referring Provider Active Start: May 07, 2025 End: May 07, 2025 Dr. Latoya Mcgregor DO Attending Provider Activ e Start: May 07, 2025 End: May 07, 2025 Team Status: Inactive Member Role/Relationship Status Dates Dr. Tereza Lynch MD Primary Care Provider Active Start: June 04, 2025 End: June 04, 2025 Dr. Tereza Lynch MD Referring Provider Active Start: June 04, 2025 End: June 04, 2025 Katy Mcneil NP, CANE CUTTER-C Attending Provider Active Start: June 04, 2025 End: June 04, 2025 Team Status: Active Member Role/Relationship Status Dates Dr. Tereza Lynch MD Primary Care Provider Active Start: June 18, 2025 Dr. Latoya Mcgregor DO Attending Provider Active Start: June Dr. Latoya Mcgregor DO Referring Provider Active Start: June Team Status: Inactive Member Role/Relationship Status Dates Dr. Tereza Lynch MD Primary Care Provider Active Start: June 23, 2025 End: June 23, 2025 Dr. Tereza Lynch MD Referring Provider Active Start: June 23, 2025 End: June 23, 2025 Dr. Arabella Orellana MD Attending Provider Active Start: June 23, 2025 End: June 23, 2025 Team Status: Active Member Role/Relationship Status Dates Dr. Tereza Lynch MD Primary care physician Active Team Status: Inactive Member Role/Relationship Status Dates Dr. Tereza Lynch MD Primary care physician Active Start: March 25, 2025 End: March 25, 2025 Dr. Tereza Lynch MD Referring Provider Active Start: March 25, 2025 End: March 25, 2025 Dr. Latoya Mcgregor DO Attending physician Acti ve Start: March 25, 2025 End: March 25, 2025 Team Status: Inactive Member Role/Relationship Status Dates Dr. Tereza Lynch MD Primary care physician Active Start: April 03, 2025 End: April 03, 2025 Dr. Tereza Lynch MD Referring Provider Active Start: April 03, 2025 End: April 03, 2025 Dr. Arabella Orellana MD Attending physician Active Start: April 03, 2025 End: April 03, 2025 Team Status: Inactive Member Role/Relationship Status Dates Dr. Tereza Lynch MD Primary care physician Active Start: April 03, 2025 End: April 03, 2025 Dr. Arabella Orellana MD Attending physician Active Start: April 03, 2025 End: April 03, 2025 Dr. Arabella Orellana MD Referring Provider Active Start: April 03, 2025 End: April 03, 2025 Team Status: Inactive Member Role/Relationship Status Dates Dr. Tereza Lynch MD Primary care physician Active Start: April 07, 2025 End: April 07, 2025 Dr. Tereza Lynch MD Referring Provider Active Start: April 07, 2025 End: April 07, 2025 Dr. Latoya Mcgregor DO Attending physician Acti ve Start: April 07, 2025 End: April 07, 2025 Team Status: Inactive Member Role/Relationship Status Dates Dr. Tereza Lynch MD Primary care physician Active Start: April 07, 2025 End: April 07, 2025 Dr. Latoya Mcgregor DO Attending physician Acti ve Start: April 07, 2025 End: April 07, 2025 Dr. Latoya Mcgregor DO Referring Provider Activ e Start: April 07, 2025 End: April 07, 2025 Team Status: Inactive Member Role/Relationship Status Dates Dr. Tereza Lynch MD Primary care physician Active Start: April 15, 2025 End: April 15, 2025 Annika Lay CNM Attending physician Active Start: April 15, 2025 End: April 15, 2025 Annika Lay CNM Referring Provider Active S tart: April 15, 2025 End: April 15, 2025 Team Status: Inactive Member Role/Relationship Status Dates Dr. Tereza Lynch MD Primary care physician Active Start: May 07, 2025 End: May 07, 2025 Dr. Tereza Lynch MD Referring Provider Active Start: May 07, 2025 End: May 07, 2025 Dr. Latoya Mcgregor DO Attending physician Acti ve Start: May 07, 2025 End: May 07, 2025 Team Status: Inactive Member Role/Relationship Status Dates Dr. Tereza Lynch MD Primary care physician Active Start: June 04, 2025 End: June 04, 2025 Dr. Tereza Lynch MD Referring Provider Active Start: June 04, 2025 End: June 04, 2025 Katy Mcneil CANE CUTTER, CANE CUTTER-C Attending physician Active Start: June 04, 2025 End: June 04, 2025 Team Status: Inactive Member Role/Relationship Status Dates Dr. Tereza Lynch MD Primary care physician Active Start: June 18, 2025 End: June 18, 2025 Dr. Latoya Mcgregor DO Attending physician Active Start: June End: June 18, 2025 Dr. Latoya Mcgregor DO Referring Provider Active Start: June End: June 18, 2025 Team Status: Inactive Member Role/Relationship Status Dates Dr. Tereza Lynch MD Primary care physician Active Start: June 23, 2025 End: June 23, 2025 Dr. Tereza Lynch MD Referring Provider Active Start: June 23, 2025 End: June 23, 2025 Dr. Arabella Orellana MD Attending physician Active Start: June 23, 2025 End: June 23, 2025 Team Status: Inactive Member Role/Relationship Status Dates Dr. Tereza Lynch MD Primary care physician Active Start: June 23, 2025 End: June 23, 2025 Dr. Arabella Orellana MD Attending physician Active Start: June 23, 2025 End: June 23, 2025 Dr. Arabella Orellana MD Referring Provider Active Start: June 23, 2025 End: June 23, 2025 Team Status: Active Member Role/Relationship Status Dates Dr. Tereza Lynch MD Primary care physician Active Start: June 23, 2025 Dr. Yang Conti MD Attending physician Active Start: June 23, 2025 Dr. Arabella Orellana MD Referring Provider Active Start: June 23, 2025 Team Status: Inactive Member Role/Relationship Status Dates Dr. Tereza Lynch MD Primary care physician Active Start: July 02, 2025 End: July 02, 2025 Dr. Tereza Lynch MD Referring Provider Active Start: July 02, 2025 End: July 02, 2025 Dr. Arabella Orellana MD Attending physician Active Start: July 02, 2025 End: July 02, 2025 Team Status: Inactive Member Role/Relationship Status Dates Dr. Tereza Lynch MD Primary care physician Active Start: May 07, 2025 End: May 07, 2025 Dr. Tereza Lynch MD Referring Provider Active Start: May 07, 2025 End: May 07, 2025 Dr. Latoya Mcgregor DO Attending physician Acti ve Start: May 07, 2025 End: May 07, 2025 Team Status: Inactive Member Role/Relationship Status Dates Dr. Tereza Lynch MD Primary care physician Active Start: June 04, 2025 End: June 04, 2025 Dr. Tereza Lynch MD Referring Provider Active Start: June 04, 2025 End: June 04, 2025 Katy Mcneil CANE CUTTER, CANE CUTTER-C Attending physician Active Start: June 04, 2025 End: June 04, 2025 Team Status: Inactive Member Role/Relationship Status Dates Dr. Tereza Lynch MD Primary care physician Active Start: June 18, 2025 End: June 18, 2025 Dr. Latoya Mcgregor DO Attending physician Active Start: June End: June 18, 2025 Dr. Latoya Mcgregor DO Referring Provider Active Start: June End: June 18, 2025 Team Status: Inactive Member Role/Relationship Status Dates Dr. Tereza Lynch MD Primary care physician Active Start: June 23, 2025 End: June 23, 2025 Dr. Tereza Lynch MD Referring Provider Active Start: June 23, 2025 End: June 23, 2025 Dr. Arabella Orellana MD Attending physician Active Start: June 23, 2025 End: June 23, 2025 Team Status: Inactive Member Role/Relationship Status Dates Dr. Tereza Lynch MD Primary care physician Active Start: June 23, 2025 End: June 23, 2025 Dr. Arabella Orellana MD Attending physician Active Start: June 23, 2025 End: June 23, 2025 Dr. Arabella Orellana MD Referring Provider Active Start: June 23, 2025 End: June 23, 2025 Team Status: Active Member Role/Relationship Status Dates Dr. Tereza Lynch MD Primary care physician Active Start: June 23, 2025 Dr. Yang Conti MD Attending physician Active Start: June 23, 2025 Dr. Arabella Orellana MD Referring Provider Active Start: June 23, 2025 Team Status: Inactive Member Role/Relationship Status Dates Dr. Tereza Lycnh MD Primary care physician Active Start: July 02, 2025 End: July 02, 2025 Dr. Tereza Lynch MD Referring Provider Active Start: July 02, 2025 End: July 02, 2025 Dr. Arabella Orellana MD Attending physician Active Start: July 02, 2025 End: July 02, 2025 Team Status: Inactive Member Role/Relationship Status Dates Dr. Tereza Lynch MD Primary care physician Active Start: July 30, 2025 End: July 30, 2025 Dr. Tereza Lynch MD Referring Provider Active Start: July 30, 2025 End: July 30, 2025 Dr. Arabella Orellana MD Attending physician Active Start: July 30, 2025 End: July 30, 2025 Team Status: Inactive Member Role/Relationship Status Dates Dr. Tereza Lynch MD Primary care physician Active Start: July 30, 2025 End: July 30, 2025 Dr. Arabella Orellana MD Attending physician Active Start: July 30, 2025 End: July 30, 2025 Team Status: Active Member Role/Relationship Status Dates Dr. Tereza Lynch MD Primary care physician Active Start: August 01, 2025 Health Risk Assessment Attending physician Active Start: August 01, 2025 Health Risk Assessment Referring Provider Active Start: August 01, 2025 Team Status: Inactive Member Role/Relationship Status Dates Dr. Tereza Lynch MD Primary care physician Active Start: August 06, 2025 End: August 06, 2025 Katy Mcneil NP, NP-C Attending physician Active Start: August 06, 2025 End: August 06, 2025 HAYDEN Morgan NP Referring Provider Active Start: August 06, 2025 End: August 06, 2025 Team Status: Active Member Role/Relationship Status Dates Dr. Tereza Lynch MD Primary care physician Active Start: August 13, 2025 HAYDEN Morgan NP Attending physician Active Start: August 13, 2025 Team Status: Inactive Member Role/Relationship Status Dates Dr. Tereza Lynch MD Primary care physician Active Start: August 14, 2025 End: August 14, 2025 Dr. Tereza Lynch MD Referring Provider Active Start: August 14, 2025 End: August 14, 2025 Dr. Latoya Mcgregor DO Attending physician Actteresa ve Start: August 14, 2025 End: August 14, 2025 Goals (unrecognized section and content) Type Care Experience Labor Preferences-CB /BF classes: []labor support person: []labor intervention preferences: []pain management options preferred: []cut cord/dad catch: []: []PP control planned: []discussed possible routes of delivery and associated risks: []special requests: [] Type Detail Care Experience svdLabor Preferences -CB/BF classes: []labor support person: []labor intervention preferences: []pain management options preferred: []cut cord/dad catch: []: []PP control planned: []discussed possible routes of delivery and associated risks: []special requests: [] FOR RECORDS PERTAINING TO PATIENTS WHO ARE OR HAVE BEEN ENROLLED IN A CHEMICAL DEPENDENCY/SUBSTANCEABUSE PROGRAM, SOME INFORMATION MAY BE OMITTED. This clinical summary was aggregated from multiple sources. Caution should be exercised in using it in the provision of clinical care. This summary normalizes information from multiple sources, and as a consequence, information in this document may materially change the coding, format and clinical context of patient data. In addition, data may be omitted in some cases. CLINICAL DECISIONS SHOULD BE BASED ON THE PRIMARY CLINICAL RECORDS. [facility]. provides no warranty or guarantee of the accuracy or completeness of information in this document.
[2025-10-03 11:06] LABS: ROM Internal Control Test YES-OK TO RESULT pt. (Internal QC); ROM Patient Test Negative (Negative); Record Kit Lot#, ROM+ K3607
== END | disposition home or self-care (01) ==
LOC: LABSPEC 10:42
PROVIDERS: PCP Internal Medicine; Referring Provider Obstetrics & Gynecology; Visit Provider Obstetrics & Gynecology
DX: Z34.03 Encounter for supervision of normal first pregnancy, third trimester (principal)
CPT/HCPCS: 84112

== ENCOUNTER → 2025-10-06 | Outpatient (CLI) | payer OTHER, SELFPAY ==
--- NOTE | 2025-10-06 09:44 | US_ITS ---
PROCEDURE: OB BIOPHYSICAL PROF W/O NST 10/06/2025 REASON FOR EXAM: VARIABLES ON MONITOR IN OFFICE TECHNIQUE: Procedure Code: USBIOWO Modality: US Procedure: OB BIOPHYSICAL PROF W/O NST COMPARISON: OB Limited With Biometrics, 09/09/2025 FINDINGS FETUS: There is a single living intrauterine gestation. POSITION: position is cephalic. HEART RATE: The heart rate is 132 bpm and regular. ANATOMIC SURVEY: Detailed anatomy survey not performed. The visualized anatomy is unremarkable. CERVIX: Not well visualized. PLACENTA: The placenta is posterior. Grade 2. No demonstrated evidence of previa or abruption. BREATHING MOVEMENTS: Score 2/2. BODY MOVEMENTS: Score 2/2. TONE: Score 2/2. QUALITATIVE AMNIOTIC FLUID VOLUME: 17.9 cm, largest pocket 6.7 cm Score 2/2. US/OB Biophysical Prof W/O NST IMPRESSION: 1. Single live intrauterine gestation. 2. Normal biophysical profile, 05/16. Reading Location: [id number]
== END | disposition home or self-care (01) ==
LOC: US 09:44
PROVIDERS: PCP Internal Medicine; Referring Provider Obstetrics & Gynecology; Visit Provider Obstetrics & Gynecology
DX: O24.414 Gestational diabetes mellitus in pregnancy, insulin controlled (principal); Z3A.35 35 weeks gestation of pregnancy
CPT/HCPCS: 76819

== ENCOUNTER → 2025-10-07 | Outpatient (CLI) | payer OTHER, SELFPAY ==
--- NOTE | 2025-10-07 13:05 | US_ITS ---
PROCEDURE: OB LIMITED WITH BIOMETRICS 10/07/2025 REASON FOR EXAM: GROWTH TECHNIQUE: Procedure Code: [id number] Modality: US Procedure: OB LIMITED WITH BIOMETRICS COMPARISON: Yesterday, 09/09/2025 FINDINGS Number: 1 Position: Vertex Placental Position: Posterior Placental Abnormalities: No evidence of previa. DIMENSIONS: Biparietal Diameter: 9 cm/36 weeks 4 days Head Circumference: 32.1 cm/36 weeks 2 days Abdominal Circumference: 32.8 cm/36 weeks 5 days Femur Length: 6.6 cm/33 weeks 6 days ESTIMATED WEIGHT: 2837 g +/-426 g ESTIMATED WEIGHT PERCENTILE (24+ weeks): 53% ESTIMATED GESTATIONAL AGE: By Ultrasound: 35 weeks 4 days ESTIMATED DATE OF DELIVERY: By Ultrasound: 11/07/2025 BIOPHYSICAL ASSESSMENT: Amniotic Fluid Volume: 18.8 with largest pocket measuring 6.4 cm Amniotic Fluid Index: (8-24 cm normal range) Cardiac Motion: 129 (average) Trunk and Limb Motion: Present. MATERNAL ANATOMY: Adnexa: Neither maternal ovary is successfully identified. Cervical Length (if measured): ANATOMY: Detailed anatomical survey not performed due to advanced age. Limited sonographic evaluation of the fetus does not show a suspicious sonographic abnormality aside from the presence of a nuchal cord. US/OB Limited With Biometrics IMPRESSION: Single live intrauterine at 35 weeks 4 days by current ultrasound wit h a STEFFANIE of 11/07/2025. Heart rate of 129 beats per minute. Normal growth noted since the previous study. Sonographic evidence of nuchal cord on current exam seen best in the sagittal p main of the neck and on a cine loop Reading Location: [id number]
== END | disposition home or self-care (01) ==
LOC: US 13:04
PROVIDERS: PCP Internal Medicine; Referring Provider Nurse Practitioner Women's Health; Visit Provider Nurse Practitioner Women's Health
DX: O24.419 Gestational diabetes mellitus in pregnancy, unspecified control (principal); Z3A.35 35 weeks gestation of pregnancy
CPT/HCPCS: 76816